=== PATIENT | female | born 1980 | race Caucasian/White ===

== ENCOUNTER 2020-08-03 10:24 | Outpatient (REF) | payer OTHER, SELFPAY ==
--- NOTE | 2020-08-03 | US_ITS ---
EXAMINATION: PELVIC ULTRASOUND CLINICAL INFORMATION: Dysmenorrhea. Heavy painful menses. COMPARISON: None TECHNIQUE: Transabdominal and transvaginal pelvic ultrasound was performed. Transvaginal exam was performed for better visualization of the uterus and ovaries. FINDINGS: The uterus is retroverted and retroflexed and measures 7.5 x 4.6 x 4.8 cm in dimension. No focal uterine lesion is seen. Endometrial thickness is normal estimated at 0.5 cm. There is a nabothian cyst in the cervix. The right ovary measures 3.1 x 2.5 x 1.4 cm. There is a 4.7 x 2.8 x 5 cm simple right adnexal or paraovarian cyst. The left ovary is normal-appearing and measures 2.8 x 1.6 x 1.5 cm. There is no fluid in the pelvis. IMPRESSION: Normal-appearing uterus. 4.7 x 2.8 x 5 cm simple right paraovarian or adnexal cyst.
== END 2020-08-03 10:25 | disposition home or self-care (01) ==
LOC: HO.US 10:24
PROVIDERS: Visit Provider Advanced Practice Midwife
DX: N94.6 Dysmenorrhea, unspecified (principal)
CPT/HCPCS: 76830; 76856

== ENCOUNTER 2020-08-21 12:36 | Outpatient (REF) | payer MEDICARE, SELFPAY | END 2020-08-21 12:37 | disposition home or self-care (01) | LOC: HO.HAP 12:36 | PROVIDERS: Visit Provider Internal Medicine | DX: H90.6 Mixed conductive and sensorineural hearing loss, bilateral (principal); Z46.1 Encounter for fitting and adjustment of hearing aid | CPT/HCPCS: V5011; V5020; V5160; V5261 ==

== ENCOUNTER → 2020-09-02 09:20 | Outpatient (BNVA) | payer OTHER, SELFPAY | PROVIDERS: PCP Internal Medicine; Visit Provider Advanced Practice Midwife | DX: N83.8 Other noninflammatory disorders of ovary, fallopian tube and broad ligament (principal); N94.3 Premenstrual tension syndrome; N94.6 Dysmenorrhea, unspecified; L68.0 Hirsutism | CPT/HCPCS: 99212 ==

== ENCOUNTER 2020-10-14 11:09 | Outpatient (REF) | payer OTHER, SELFPAY ==
[2020-10-14 13:55] LABS: MANUAL DIFF FLAG NO
[2020-10-14 14:00] LABS: Basophils Absolute Auto 0.1 X10*3/uL (0.0-0.2); Basophils Percent Auto 0.7 % (0-2); Eosinophils Absolute Auto 0.1 X10*3/uL (0.0-0.4); Eosinophils Percent Auto 0.5 % (0-4); Hematocrit 43.2 % (37-47); Hemoglobin 14.1 g/dl (12.0-16.0); Imm Gran Abs Auto 0.03 X10*3/uL (0.00-0.03); Imm Gran Pct Auto 0.3 % (0.0-0.4); Lymphocytes Percent Auto 33.2 % (20-40); Mean Corpuscular HGB Conc 32.6 g/dl (31.0-35.0); Mean Corpuscular Hemoglobin 32.3 pg (27.0-33.0); Mean Corpuscular Volume 99.1 fL (80-98); Mean Platelet Volume 11.1 fL (9.4-12.3); Monocytes Absolute Auto 0.5 X10*3/uL (0.1-1.2); Monocytes Percent Auto 5.5 % (2-11); Neutrophils Absolute Auto 5.5 X10*3/uL (2.0-8.3); Neutrophils Percent Auto 59.8 % (45-73); Platelet Count 326 X10*3/uL (160-400); Red Blood Count 4.36 X10*6/uL (4.20-5.50); Red Cell Distribution Width 13.2 % (11.0-16.0); White Blood Count 9.1 X10*3/uL (4.8-10.8)
[2020-10-14 14:32] LABS: Alanine Aminotransferase 23 U/L (0-31); Albumin Level 4.6 g/dL (3.5-5.0); Alkaline Phosphatase 85 U/L (39-117); Anion Gap 11 (12-20); Aspartate Amino Transferase 19 U/L (5-31); Bilirubin Total 0.4 mg/dL (0.0-1.0); Blood Urea Nitrogen 6 mg/dL (9-16); Calcium 8.3 mg/dL (8.4-10.2); Carbon Dioxide 27 mmol/L (22-29); Chloride 104 mmol/L (96-108); Estimated Glomerular Filt Rate > 60; Glucose Fasting 87 mg/dL (60-99); Potassium 4.8 mmol/l (3.3-5.1); Sodium 137 mmol/L (135-145); Total Protein 7.2 g/dL (6.5-8.0)
== END 2020-10-14 11:10 | disposition home or self-care (01) ==
LOC: HO.HMGCLDS 11:09
PROVIDERS: PCP Internal Medicine; Visit Provider Physician Assistant Medical
DX: L40.4 Guttate psoriasis (principal); B35.8 Other dermatophytoses; Z79.899 Other long term (current) drug therapy
CPT/HCPCS: 36415; 80053; 85025; 86481

== ENCOUNTER 2020-11-19 10:48 | Outpatient (REF) | payer OTHER, SELFPAY ==
[2020-11-20 09:40] LABS: BV Int Neg Control Negative (Negative); BV Int Pos Control Positive (Positive)
[2020-11-20 18:13] LABS: C. trachomatis RNA TMA NOT DETECTED (NOT DETECTED); N. gonorrhoeae RNA TMA NOT DETECTED (NOT DETECTED)
== END 2020-11-19 10:49 | disposition home or self-care (01) ==
LOC: HO.LAB 10:48
PROVIDERS: PCP Internal Medicine; Visit Provider Advanced Practice Midwife
DX: N76.0 Acute vaginitis (principal); Z20.2 Contact with and (suspected) exposure to infections with a predominantly sexual mode of transmission; B96.89 Other specified bacterial agents as the cause of diseases classified elsewhere; R45.86 Emotional lability; F17.200 Nicotine dependence, unspecified, uncomplicated; Z88.8 Allergy status to other drugs, medicaments and biological substances
CPT/HCPCS: 36415; 87480; 87491; 87510; 87591; 87660; 99212

== ENCOUNTER 2020-12-01 14:12 | Outpatient (REF) | payer OTHER, SELFPAY ==
[2020-12-02 06:01] LABS: Syphilis Screen Nonreactive (Nonreactive)
[2020-12-02 06:29] LABS: HIV AB/AG Nonreactive (Nonreactive); HIV Num 1 0.06 S/CO (0.00-0.99); ~HepC Num1 0.11 S/CO (0.00-0.79); ~Hepatitis C Antibody Nonreactive (Nonreactive)
[2020-12-02 07:19] LABS: HBc Num1 0.06 S/CO (0.00-0.79); Hepatitis B Core Antibody Nonreactive (Nonreactive)
[2020-12-03 17:32] LABS: C. trachomatis RNA TMA NOT DETECTED (NOT DETECTED); N. gonorrhoeae RNA TMA NOT DETECTED (NOT DETECTED)
== END 2020-12-01 14:13 | disposition home or self-care (01) ==
LOC: HO.HMGCLDS 14:12
PROVIDERS: PCP Internal Medicine; Visit Provider Advanced Practice Midwife
DX: Z20.2 Contact with and (suspected) exposure to infections with a predominantly sexual mode of transmission (principal); B37.2 Candidiasis of skin and nail
CPT/HCPCS: 36415; 86704; 86780; 86803; 87389; 87491; 87591

== ENCOUNTER 2021-05-27 19:53 | Emergency (ER) | payer OTHER, SELFPAY ==
--- NOTE | ~2021-05-27 | CT_ITS ---
EXAMINATION: CT ABDOMEN AND PELVIS WITH CONTRAST CLINICAL INFORMATION: Lower abdominal pain. Nausea. COMPARISON: Pelvic ultrasound dated 08/03/2020. TECHNIQUE: Multidetector volumetric images were obtained from the superior aspect of the liver through the pubic symphysis following administration 85 mL of Omnipaque 350 intravenous contrast. Sagittal and coronal reformatted images were obtained on the technologist's workstation. Oral contrast: No This CT examination was performed using dose optimization techniques as appropriate, variously including the following: *Automated exposure control *Adjustment of mA and/or kV according to patient size (this includes techniques or standardized protocols for targeted exams where dose is matched to indication/reason for exam; i.e. extremities or head) *Use of iterative reconstruction technique DLP: 590 mGy-cm FINDINGS: LUNG BASES: The visualized lung bases are unremarkable. LIVER, GALLBLADDER, AND BILIARY TREE: The liver is normal in size, shape, and attenuation. No focal hepatic lesion or biliary ductal dilatation is present. Nondistended with circumferential wall prominence, which may be due to underdistention. No associated inflammatory change. PANCREAS: Unremarkable. SPLEEN: Unremarkable. ADRENAL GLANDS: Unremarkable. KIDNEYS AND URETERS: The kidneys are normal in size, shape, and attenuation. No hydronephrosis, hydroureter, or calculi seen. No perinephric stranding. BLADDER: Nondistended and unremarkable. GASTROINTESTINAL TRACT: No bowel wall thickening or associated inflammatory change. No small or large bowel obstruction. Unremarkable appendix. PERITONEAL CAVITY: No intra-abdominal free air or free fluid. ABDOMINAL WALL: No significant hernia is appreciated. LYMPH NODES: Normal. VASCULAR: Unremarkable. PELVIC VISCERA: The uterus is retroverted and unremarkable. There is a right adnexal simple appearing cyst measuring up to 3.3 x 2.0 x 2.5 cm. OSSEOUS STRUCTURES: Unremarkable. CT/CT abdomen pelvis w con IMPRESSION: 1. Simple appearing right adnexal cystic structure measuring up to 3.3 cm. In the setting of lower pelvic pain, findings may represent a simple ovarian cyst versus dominant follicle. 2. Otherwise unremarkable examination.
[2021-05-27 19:56] VITALS: BP 144/85; PULSE 94; RESP 16; TEMP 36.5; O2SAT 96; BMI 32.8
[2021-05-27 21:25] VITALS: BP 119/75; PULSE 82; RESP 18; O2SAT 98
--- NOTE | 2021-05-27 21:37 | ED_ITS ---
HPI - Abdominal Pain General Chief Complaint: Abdominal Pain Stated Complaint: abdominal pain Time Seen by Provider: 05/27/21 21:05 Source: patient Mode of arrival: ambulatory History of Present Illness HPI narrative: 41-year-old female without significant past medical history, denies history of kidney stones/abdominal surgery, and presents with 3 days of lower abdominal discomfort that is sharp and has worsened over the past 3 days associated with nausea but no vomiting, fever, chills and states that the left is more comfortable than the right and that the left radiates into the back. Otherwise, patient is status post tubal ligation and her LMP was 05/13. Related Data Home Medications Medication Instructions Recorded Confirmed buprenorphine 2 mg-naloxone 0.5 mg 1 film BUCCAL DAILY 09/02/20 04/27/21 sublingual film (Suboxone) bupropion HCl 300 mg 24 hr tablet, 300 mg PO QAM 09/02/20 04/27/21 extended release etanercept 50 mg/mL (1 mL) 50 mg SUBCUT QWEEK 09/02/20 04/27/21 subcutaneous syringe (Enbrel) lamotrigine 100 mg tablet 100 mg PO DAILY 09/02/20 04/27/21 promethazine 25 mg tablet 25 mg PO Q4-6H PRN 09/02/20 04/27/21 tretinoin 0.025 % topical cream 1 applic TOPICAL BEDTIME 09/02/20 04/27/21 citalopram 40 mg tablet 40 mg PO DAILY 04/27/21 04/27/21 hydroxyzine HCl 10 mg tablet 10 mg PO 04/27/21 04/27/21 Previous Rx's Medication Instructions Recorded metronidazole 500 mg tablet 500 mg PO BID 7 Days #14 tab 11/23/20 (Flagyl) famotidine 40 mg tablet 40 mg PO DAILY 90 Days #90 tab 04/27/21 omeprazole 20 mg capsule,delayed 20 mg PO DAILY 90 Days #90 cap 04/27/21 release Allergies Allergy/AdvReac Type Severity Reaction Status Date / Time ibuprofen [Ibuprofen] Allergy Mild GI UPSET Verified 04/27/21 11:01 acetaminophen [Vicodin] Allergy Unknown gi upset Verified 04/27/21 11:01 hydrocodone [Vicodin] Allergy Unknown gi upset Verified 04/27/21 11:01 Motrin Allergy Unknown GI upset Verified 04/27/21 11:01 Review of Systems Review of Systems Pertinent positives and negatives as stated in HPI 10 point review systems otherwise negative. Physical Exam Vital Signs: Vital Signs: Last Vital Signs Temp 98.7 F 05/27/21 23:21 Pulse 70 05/27/21 23:21 Resp 18 05/27/21 23:21 BP 119/67 05/27/21 23:21 Pulse Ox 98 05/27/21 23:21 Body Mass Index 32.8 VITAL SIGNS: Reviewed. GENERAL: Well developed, well nourished, in no acute distress. HEAD: Normocephalic/atraumatic EYES: PERRLA, EOMI EARS: Ext canals without abnormality OROPHARYNX: no oral lesions noted, posterior pharynx clear LUNGS: Normal breath sounds. No adventitious sounds or accessory muscle use. SpO2<98> CARDIOVASCULAR: Regular rate and rhythm without noted murmurs ABDOMEN: Soft, tenderness along lower abdomen left greater than right without r ebound non-distended with bowel sounds. SKIN: Inspection of the skin reveals no rashes NEUROLOGIC: Alert and oriented x 4. Strength and sensation to light touch were grossly intact x 4. Course Course Course Narrative: 41-year-old female with history and clinical presentation suggestive of UTI, pyelonephritis, renal colic, possible diverticulitis but doubt appendicitis. Review of all investigations without acute findings other than ovarian cyst. Patient given all results and discharged in stable condition. MDM - Abdominal Pain Lab Data Result diagrams: 05/27/21 21:41 05/27/21 21:41 Labs: Lab Results 05/27/21 05/27/21 05/27/21 Range/Units 21:41 21:41 22:08 WBC 10.4 (4.8-10.8) X10*3/uL RBC 4.18 L (4.20-5.50) X10*6/uL Hgb 13.4 (12.0-16.0) g/dl Hct 40.1 (37-47) % MCV 95.9 (80-98) fL MCH 32.1 (27.0-33.0) pg MCHC 33.4 (31.0-35.0) g/dl RDW 12.7 (11.0-16.0) % Plt Count 287 (160-400) X10*3/uL MPV 10.1 (9.4-12.3) fL Immature Gran % (Auto) 0.3 (0.0-0.4) % Neut % (Auto) 43.8 L (45-73) % Lymph % (Auto) 46.8 H (20-40) % [place] % (Auto) 6.9 (2-11) % Eos % (Auto) 1.4 (0-4) % Baso % (Auto) 0.8 (0-2) % Lymph # (Auto) 4.9 (1.2-4.9) X10*3/uL [place] # (Auto) 0.7 (0.1-1.2) X10*3/uL Eos # (Auto) 0.2 (0.0-0.4) X10*3/uL Baso # (Auto) 0.1 (0.0-0.2) X10*3/uL Abs Immat Gran (auto) 0.03 (0.00-0.03) X10*3/uL Absolute Neuts (auto) 4.6 (2.0-8.3) X10*3/uL Absolute Nucleated RBC 0.000 (0.0-0.012) X10*3/uL Nucleated RBC % (auto) 0.0 (0.0-0.2) /100WBC Sodium 139 (135-145) mmol/L Potassium 4.3 (3.3-5.1) mmol/L Chloride 107 (96-108) mmol/L Carbon Dioxide 23 (22-29) mmol/L Anion Gap 13 (12-20) BUN 8 L (9-16) mg/dL Creatinine 0.81 (0.5-1.4) mg/dL Estim Creat Clear Calc 81.7 Estimated GFR > 60 Random Glucose 101 (60-115) mg/dL Calcium 8.7 (8.4-10.2) mg/dL Total Bilirubin 0.3 (0.0-1.0) mg/dL AST 19 (5-31) U/L ALT 16 (0-31) U/L Alkaline Phosphatase 79 (39-117) U/L Total Protein 6.5 (6.5-8.0) g/dL Albumin 3.9 (3.5-5.0) g/dL Urine Color Urine Appearance Urine pH (5.0-8.0) Ur Specific Helix (1.005-1.025) Urine Protein (NEG-TRACE) MG/DL Urine Glucose (UA) (NEG) MG/DL Urine Ketones (NEG) MG/DL Urine Blood (NEG) Urine Nitrite (NEG) Ur Leukocyte Esterase (NEG) Urine Test NEGATIVE (NEGATIVE) 05/27/21 Range/Units 22:09 WBC (4.8-10.8) X10*3/uL RBC (4.20-5.50) X10*6/uL Hgb (12.0-16.0) g/dl Hct (37-47) % MCV (80-98) fL MCH (27.0-33.0) pg MCHC (31.0-35.0) g/dl RDW (11.0-16.0) % Plt Count (160-400) X10*3/uL MPV (9.4-12.3) fL Immature Gran % (Auto) (0.0-0.4) % Neut % (Auto) (45-73) % Lymph % (Auto) (20-40) % [place] % (Auto) (2-11) % Eos % (Auto) (0-4) % Baso % (Auto) (0-2) % Lymph # (Auto) (1.2-4.9) X10*3/uL [place] # (Auto) (0.1-1.2) X10*3/uL Eos # (Auto) (0.0-0.4) X10*3/uL Baso # (Auto) (0.0-0.2) X10*3/uL Abs Immat Gran (auto) (0.00-0.03) X10*3/uL Absolute Neuts (auto) (2.0-8.3) X10*3/uL Absolute Nucleated RBC (0.0-0.012) X10*3/uL Nucleated RBC % (auto) (0.0-0.2) /100WBC Sodium (135-145) mmol/L Potassium (3.3-5.1) mmol/L Chloride (96-108) mmol/L Carbon Dioxide (22-29) mmol/L Anion Gap (12-20) BUN (9-16) mg/dL Creatinine (0.5-1.4) mg/dL Estim Creat Clear Calc Estimated GFR Random Glucose (60-115) mg/dL Calcium (8.4-10.2) mg/dL Total Bilirubin (0.0-1.0) mg/dL AST (5-31) U/L ALT (0-31) U/L Alkaline Phosphatase (39-117) U/L Total Protein (6.5-8.0) g/dL Albumin (3.5-5.0) g/dL Urine Color DARK YELLOW Urine Appearance CLEAR Urine pH 6.0 (5.0-8.0) Ur Specific Helix 1.025 (1.005-1.025) Urine Protein NEG (NEG-TRACE) MG/DL Urine Glucose (UA) NEG (NEG) MG/DL Urine Ketones 5 (NEG) MG/DL Urine Blood NEG (NEG) Urine Nitrite NEG (NEG) Ur Leukocyte Esterase NEG (NEG) Urine Test (NEGATIVE) Discharge Plan Discharge Clinical Impression: Ovarian cyst Patient Disposition: Home, Self-Care Instructions: Ovarian Cyst (ED) Additional Instructions: 1. Recommend heating pad as needed for pain control. 2. Please follow-up with your primary care provider next 2-3 days for re- evaluation and repeat ultrasound in 6 weeks. Return to the ER for acute worsening of symptoms. Prescriptions: No Action metronidazole [Flagyl] 500 mg tablet 500 mg PO BID 7 Days Qty: 14 RF: 0 citalopram 40 mg tablet 40 mg PO DAILY RF: 0 hydroxyzine HCl 10 mg tablet 10 mg PO RF: 0 famotidine 40 mg tablet 40 mg PO DAILY 90 Days Qty: 90 RF: 0 omeprazole 20 mg capsule,delayed release(DR/EC) 20 mg PO DAILY 90 Days Qty: 90 RF: 0 buprenorphine-naloxone [Suboxone] 2-0.5 mg film 1 film buccal DAILY RF: 0 Enbrel 50 mg/mL (1 mL) syringe 50 mg subcut QWEEK RF: 0 lamotrigine 100 mg tablet 100 mg PO DAILY RF: 0 tretinoin 0.025 % cream 1 applic topical BEDTIME RF: 0 bupropion HCl 300 mg tablet extended release 24 hr 300 mg PO QAM RF: 0 promethazine 25 mg tablet 25 mg PO Q4-6H PRNRF: 0 Referrals: Simba Mcmanus, [employer] [Primary Care Provider] - 2 days Stand Alone Forms: Work/School Release PMFSH Past Medical History Source: nursing notes reviewed Medical History History of depression History of exposure to HIV Hx of anxiety disorder Hx of bipolar disorder Hx of hearing loss Hx of psoriasis Surgical History History of tubal ligation Family History Family History Father Depression Mother HTN (hypertension) Diabetes mellitus Sister No problems noted. Sister No problems noted. Son No problems noted. Son No problems noted. Daughter No problems noted. Social History Social History Alcohol intake: current Alcohol intake frequency: holidays/special occasions only Advance Directives: No Advance Directives Information Provided: No Patient : No Sexual orientation: Straight/Heterosexual Gender identity: female
[2021-05-27 21:48] LABS: MANUAL DIFF FLAG NO
[2021-05-27 21:49] LABS: Basophils Absolute Auto 0.1 X10*3/uL (0.0-0.2); Basophils Percent Auto 0.8 % (0-2); Eosinophils Absolute Auto 0.2 X10*3/uL (0.0-0.4); Eosinophils Percent Auto 1.4 % (0-4); Hematocrit 40.1 % (37-47); Hemoglobin 13.4 g/dl (12.0-16.0); Imm Gran Abs Auto 0.03 X10*3/uL (0.00-0.03); Imm Gran Pct Auto 0.3 % (0.0-0.4); Lymphocytes Absolute Auto 4.9 X10*3/uL (1.2-4.9); Lymphocytes Percent Auto 46.8 % (20-40); Mean Corpuscular HGB Conc 33.4 g/dl (31.0-35.0); Mean Corpuscular Hemoglobin 32.1 pg (27.0-33.0); Mean Corpuscular Volume 95.9 fL (80-98); Mean Platelet Volume 10.1 fL (9.4-12.3); Monocytes Absolute Auto 0.7 X10*3/uL (0.1-1.2); Monocytes Percent Auto 6.9 % (2-11); Neutrophils Absolute Auto 4.6 X10*3/uL (2.0-8.3); Neutrophils Percent Auto 43.8 % (45-73); Platelet Count 287 X10*3/uL (160-400); Red Blood Count 4.18 X10*6/uL (4.20-5.50); Red Cell Distribution Width 12.7 % (11.0-16.0); White Blood Count 10.4 X10*3/uL (4.8-10.8)
[2021-05-27 22:15] LABS: Glucose Urine UA NEG (NEG); Leukocyte Esterase Urine NEG (NEG); Nitrite Urine NEG (NEG); Specific Gravity - Urine 1.025 (1.005-1.025); Urine Blood NEG (NEG); Urine Ketones 5 MG/DL (NEG); Urine Protein NEG (NEG-TRACE)
[2021-05-27 22:17] LABS: Appearance Urine CLEAR; Color Urine DARK YELLOW
[2021-05-27 22:17] LABS: Urine Pregnancy NEGATIVE (NEGATIVE)
[2021-05-27 22:18] LABS: UPreg QC Valid YES
[2021-05-27 22:27] LABS: Alanine Aminotransferase 16 U/L (0-31); Albumin Level 3.9 g/dL (3.5-5.0); Alkaline Phosphatase 79 U/L (39-117); Anion Gap 13 (12-20); Aspartate Amino Transferase 19 U/L (5-31); Bilirubin Total 0.3 mg/dL (0.0-1.0); Blood Urea Nitrogen 8 mg/dL (9-16); Calcium 8.7 mg/dL (8.4-10.2); Carbon Dioxide 23 mmol/L (22-29); Chloride 107 mmol/L (96-108); Creatinine Clr Calc Pharmacy 81.7; Estimated Glomerular Filt Rate > 60; Glucose Random 101 mg/dL (60-115); Potassium 4.3 mmol/L (3.3-5.1); Sodium 139 mmol/L (135-145); Total Protein 6.5 g/dL (6.5-8.0)
[2021-05-27] MEDS: iohexoL 350 MG/ML 100 ML INFUS..BTL IV (22:50)
[2021-05-27 23:21] VITALS: BP 119/67; PULSE 70; RESP 18; TEMP 37.1; O2SAT 98
== END 2021-05-28 00:26 | disposition home or self-care (01) ==
PROVIDERS: Emergency Provider Student in an Organized Health Care Education/Training Program; PCP Nurse Practitioner Family
DX: N83.209 Unspecified ovarian cyst, unspecified side (principal); R10.30 Lower abdominal pain, unspecified; Z79.899 Other long term (current) drug therapy
CPT/HCPCS: 36415; 74177; 80053; 81003; 81025; 85025; 99284; Q9967

== ENCOUNTER 2021-06-03 10:02 | Outpatient (REF) | payer OTHER, SELFPAY ==
[2021-06-04 09:53] LABS: CT PCR NOT DETECTED (Not Detect.); NG PCR NOT DETECTED (Not Detect.)
[2021-06-04 10:07] LABS: BV Int Neg Control Negative (Negative); BV Int Pos Control Positive (Positive)
== END 2021-06-03 10:03 | disposition home or self-care (01) ==
LOC: HO.LAB 10:02
PROVIDERS: PCP Nurse Practitioner Family; Visit Provider Advanced Practice Midwife
DX: R10.2 Pelvic and perineal pain (principal); F17.210 Nicotine dependence, cigarettes, uncomplicated; N83.201 Unspecified ovarian cyst, right side; Z20.2 Contact with and (suspected) exposure to infections with a predominantly sexual mode of transmission
CPT/HCPCS: 81003; 87480; 87491; 87510; 87591; 87660; 99212

== ENCOUNTER 2021-06-17 12:54 | Outpatient (REF) | payer OTHER, SELFPAY ==
--- NOTE | ~2021-06-17 | US_ITS ---
EXAMINATION: US PELVIS CLINICAL INFORMATION: Right-sided pain COMPARISON: 08/03/2020 TECHNIQUE: Ultrasound of the pelvis is performed using both transabdominal and transvaginal transducers along with Doppler. Transvaginal imaging is performed due to inadequate visualization transabdominally. FINDINGS: Uterus: The uterus is normal measuring 7.7 x 3.4 x 4.1 cm and is retroverted. Endometrial thickness normal at 9 mm in double layer thickness. No focal lesion. Nabothian cysts. Adnexa: Both ovaries are visualized. There is normal color flow to the adnexa. There is no ovarian torsion. There is no pelvic ascites or fluid collection. Right ovary measures 9 mL in volume and the Left ovary measures 5 mL in volume. Right ovarian cyst is smaller current study measuring 3 x 2.7 x 1.8 cm. US/US pelvic and transvaginal IMPRESSION: No suspicious abnormalities. Small right ovarian cyst noted smaller than on previous which could be recurrence of a dominant hemorrhagic cyst versus a regressing parovarian cyst.
== END 2021-06-17 12:55 | disposition home or self-care (01) ==
LOC: HO.US 12:54
PROVIDERS: PCP Nurse Practitioner Family; Visit Provider Advanced Practice Midwife
DX: N83.201 Unspecified ovarian cyst, right side (principal)
CPT/HCPCS: 76830; 76856

== ENCOUNTER → 2021-07-02 10:36 | Outpatient (BNVA) | payer OTHER, SELFPAY | PROVIDERS: Visit Provider Advanced Practice Midwife | CPT/HCPCS: 99212 ==

== ENCOUNTER 2021-10-07 10:33 | Outpatient (REF) | payer OTHER, SELFPAY ==
[2021-10-07 17:14] LABS: CT PCR NOT DETECTED (Not Detect.); NG PCR NOT DETECTED (Not Detect.)
== END 2021-10-07 10:34 | disposition home or self-care (01) ==
LOC: HO.LAB 10:33
PROVIDERS: Visit Provider Obstetrics & Gynecology
DX: R10.2 Pelvic and perineal pain (principal); F17.210 Nicotine dependence, cigarettes, uncomplicated
CPT/HCPCS: 87491; 87591; 99212

== ENCOUNTER 2021-12-28 10:51 | Outpatient (REF) | payer OTHER, SELFPAY ==
--- NOTE | ~2021-12-28 | US_ITS ---
EXAMINATION: US PELVIS CLINICAL INFORMATION: Pelvic and perineal pain. COMPARISON: None TECHNIQUE: Ultrasound of the pelvis is performed using both transabdominal and transvaginal transducers along with Doppler. Transvaginal imaging is performed due to inadequate visualization transabdominally. FINDINGS: UTERUS: The uterus is retroflexed, retroverted and measures 8.8 x 4.6 x 6.0 cm. The double wall endometrial thickness is 0.9 mm. The uterus is smooth in contour and has normal myometrial echogenicity. No visible fibroid. There are small nabothian cysts. ADNEXA: Both ovaries are visualized. There is normal color flow to the adnexa. There is no ovarian torsion. There is no pelvic ascites or fluid collection. Right ovary measures 2.8 x 2.4 x 2.5 cm and volume 8.6 mL. There is an anechoic cyst with a daughter cyst within. This cyst measures 1.8 x 1.8 x 2.0 cm. No additional cyst seen. Left ovary measures 2.8 x 1.4 x 1.9 cm and volume 3.8 mL. There is a corpus luteal cyst measuring 1.3 x 1.1 x 1.2 cm. There is a left adnexal cyst measuring 1.1 x 0.5 x 0.6 cm. There is no free fluid in the cul-de-sac. US/US pelvic and transvaginal IMPRESSION: Small nabothian cysts seen in the cervix. The uterus is unremarkable. There is a complex cyst right ovary and a corpus luteal cyst left ovary. In addition, there is a left adnexal cyst measuring 1.1 cm.
== END 2021-12-28 10:52 | disposition home or self-care (01) ==
LOC: HO.US 10:51
PROVIDERS: Visit Provider Obstetrics & Gynecology
DX: R10.2 Pelvic and perineal pain (principal)
CPT/HCPCS: 76830; 76856

== ENCOUNTER → 2022-01-03 11:27 | Outpatient (BNVA) | payer OTHER, SELFPAY | PROVIDERS: Visit Provider Obstetrics & Gynecology | DX: N83.299 Other ovarian cyst, unspecified side (principal) | CPT/HCPCS: Q3014 ==

== ENCOUNTER 2022-01-04 12:29 | Outpatient (REF) | payer OTHER, SELFPAY ==
[2022-01-04 12:51] LABS: MANUAL DIFF FLAG NO
[2022-01-04 13:40] LABS: Basophils Absolute Auto 0.1 X10*3/uL (0.0-0.2); Basophils Percent Auto 0.5 % (0-2); Eosinophils Absolute Auto 0.1 X10*3/uL (0.0-0.4); Eosinophils Percent Auto 0.7 % (0-4); Hematocrit 40.2 % (37.0-47.0); Hemoglobin 13.2 g/dl (12.0-16.0); Imm Gran Abs Auto 0.02 X10*3/uL (0.00-0.03); Imm Gran Pct Auto 0.2 % (0.0-0.4); Lymphocytes Absolute Auto 4.1 X10*3/uL (1.2-4.9); Lymphocytes Percent Auto 39.2 % (20-40); Mean Corpuscular HGB Conc 32.8 g/dl (31.0-35.0); Mean Corpuscular Hemoglobin 31.4 pg (27.0-33.0); Mean Corpuscular Volume 95.5 fL (80.0-98.0); Monocytes Absolute Auto 0.7 X10*3/uL (0.1-1.2); Monocytes Percent Auto 6.7 % (2-11); Neutrophils Absolute Auto 5.5 x10*3/uL (2.0-8.3); Neutrophils Percent Auto 52.7 % (45-73); Platelet Count 295 X10*3/uL (160-400); Red Blood Count 4.21 X10*6/uL (4.20-5.50); Red Cell Distribution Width 12.9 % (11.0-16.0); White Blood Count 10.4 X10*3/uL (4.8-10.8)
[2022-01-04 14:15] LABS: Alanine Aminotransferase 19 U/L (0-31); Alkaline Phosphatase 79 U/L (39-117); Anion Gap 12 (12-20); Aspartate Amino Transferase 19 U/L (5-31); Bilirubin Direct < 0.2 mg/dL (0.0-0.5); Bilirubin Total 0.3 mg/dL (0.0-1.0); Blood Urea Nitrogen 10 mg/dL (9-16); Carbon Dioxide 25 mmol/L (22-29); Chloride 105 mmol/L (96-108); Cholesterol 195 mg/dL; Estimated Glomerular Filt Rate > 60; Glucose Random 91 mg/dL (60-115); HDL Cholesterol 52 mg/dL; LDL Cholesterol Calculated 118 mg/dl; Potassium 4.5 mmol/L (3.3-5.1); Sodium 137 mmol/L (135-145); Total Protein 6.8 g/dL (6.5-8.0); Triglycerides 128 mg/dL
[2022-01-05 14:46] LABS: CA-125 10 U/mL (<35)
[2022-01-06 11:47] LABS: TS Negative Control Passed; TS Panel A 0; TS Panel B 0; TS Positive Control Passed; TSpotTB Negative (Negative)
== END 2022-01-04 12:30 | disposition home or self-care (01) ==
LOC: HO.LAB 12:29
PROVIDERS: Absent Provider Physician Assistant Medical; PCP Internal Medicine; Visit Provider Obstetrics & Gynecology
DX: Z11.4 Encounter for screening for human immunodeficiency virus [HIV] (principal); N83.299 Other ovarian cyst, unspecified side; L40.4 Guttate psoriasis; L73.2 Hidradenitis suppurativa; L70.0 Acne vulgaris; L85.3 Xerosis cutis; Z79.899 Other long term (current) drug therapy
CPT/HCPCS: 36415; 80048; 80061; 80076; 85025; 86304; 86481

== ENCOUNTER 2022-01-14 10:24 | Outpatient (REF) | payer OTHER, SELFPAY ==
[2022-01-19 01:27] LABS: HPV mRNA E6/E7 rflx Not Detected (Not Detected)
== END 2022-01-14 10:25 | disposition home or self-care (01) ==
LOC: HO.LAB 10:24
PROVIDERS: PCP Internal Medicine; Visit Provider Obstetrics & Gynecology
DX: Z01.419 Encounter for gynecological examination (general) (routine) without abnormal findings (principal)
CPT/HCPCS: 87624; 88142

== ENCOUNTER 2022-02-07 11:58 | Outpatient (REF) | payer OTHER, SELFPAY ==
--- NOTE | ~2022-02-07 | MM_ITS ---
EXAMINATION: MM SCREENING DIGITAL BREAST TOMOSYNTHESIS, BILATERAL CLINICAL INFORMATION: Screening. Asymptomatic. The lifetime risk of breast cancer based on the Tyrer-Cuzick Model is 7%. COMPARISON: Outside mammography: 08/22/2018 ([facility]) TECHNIQUE: Digital breast tomosynthesis is performed in both the craniocaudal and mediolateral oblique views along with computer-aided detection (CAD). Synthesized 2D images are generated from the tomosynthesis. FINDINGS: The breasts are heterogeneously dense, which may obscure small masses (ACR BI-RADS breast composition Category c). There are no significant masses, abnormal calcifications, or other abnormalities. There are scattered shifting fibroglandular parenchymal densities overall similar prior outside exam. There is no architectural abnormality or significant change. The axilla and skin contours are unremarkable. MM/MM tomosynthesis screening BI IMPRESSION: No significant changes from prior outside exam. ASSESSMENT: BI-RADS 2: Benign RECOMMENDATION: Routine annual mammography screening. This patient's information was entered into a reminder system with a target due date for their next mammogram.
== END 2022-02-07 11:59 | disposition home or self-care (01) ==
LOC: HO.MAMMO 11:58
PROVIDERS: PCP Internal Medicine; Visit Provider Obstetrics & Gynecology
DX: Z12.31 Encounter for screening mammogram for malignant neoplasm of breast (principal)
CPT/HCPCS: 77063; 77067

== ENCOUNTER 2022-02-28 12:50 | Outpatient (REF) | payer OTHER, SELFPAY ==
--- NOTE | ~2022-02-28 | XR_ITS ---
EXAMINATION: XR KNEE, RIGHT CLINICAL INFORMATION: Pain right knee. COMPARISON: None TECHNIQUE: Four views of the right knee. FINDINGS: There is a moderate-sized anterior superior patellar enthesophyte and anterior tibial tubercle enthesophyte. No visible acute fracture, dislocation or subluxation seen. No joint effusion. No evidence of loose bodies. XR/XR knee RT 3V IMPRESSION: Moderate-sized enthesophyte along the anterior superior patellar enthesophyte and anterior tibial tubercle enthesophyte.
--- NOTE | ~2022-02-28 | US_ITS ---
EXAMINATION: US PELVIS CLINICAL INFORMATION: Ovarian cyst. COMPARISON: Ultrasound pelvis 12/28/2021. TECHNIQUE: Ultrasound of the pelvis is performed using both transabdominal and transvaginal transducers along with Doppler. Transvaginal imaging is performed due to inadequate visualization transabdominally. FINDINGS: UTERUS: The uterus is retroverted, retroflexed and measures 9.1 x 3.3 x 4.2 cm. The double wall endometrial thickness is 0.7 cm. The uterus is smooth in contour and has normal myometrial echogenicity. No visible fibroid. There are small anechoic cysts in the cervix. ADNEXA: Both ovaries are visualized. There is normal color flow to the adnexa. There is no ovarian torsion. There is no pelvic ascites or fluid collection. Right ovary measures 2.8 x 1.7 x 2.5 cm and volume 6.2 mL. It appears unremarkable. Left ovary measures 3.4 x 1.6 x 2.2 cm and volume 6.3 mL. There is an anechoic cyst measuring 1.0 x 0.9 x 1.0 cm. US/US pelvic and transvaginal IMPRESSION: Retroverted and retroflexed uterus is unremarkable. Small nabothian cysts in the cervix. Simple cyst left ovary. The complex cyst in right ovary has resolved since 12/29/2021.
== END 2022-02-28 12:51 | disposition home or self-care (01) ==
LOC: HO.US 12:50
PROVIDERS: Visit Provider Obstetrics & Gynecology
DX: N83.299 Other ovarian cyst, unspecified side (principal); M25.561 Pain in right knee
CPT/HCPCS: 73562; 76830; 76856

== ENCOUNTER → 2022-05-10 10:31 | Outpatient (BNVA) | payer OTHER, SELFPAY | PROVIDERS: PCP Nurse Practitioner Family; Visit Provider Physician Assistant | DX: K21.9 Gastro-esophageal reflux disease without esophagitis (principal) | CPT/HCPCS: 99202 ==

== ENCOUNTER 2022-12-26 12:56 | Outpatient (REF) | payer OTHER, SELFPAY ==
[2022-12-26 13:09] LABS: MANUAL DIFF FLAG NO
[2022-12-26 14:22] LABS: Basophils Absolute Auto 0.1 X10*3/uL (0.0-0.2); Basophils Percent Auto 0.6 % (0-2); Eosinophils Absolute Auto 0.1 X10*3/uL (0.0-0.4); Eosinophils Percent Auto 1.3 % (0-4); Hematocrit 40.6 % (37.0-47.0); Hemoglobin 13.3 g/dl (12.0-16.0); Imm Gran Abs Auto 0.03 X10*3/uL (0.00-0.03); Imm Gran Pct Auto 0.3 % (0.0-0.4); Lymphocytes Absolute Auto 4.1 X10*3/uL (1.2-4.9); Lymphocytes Percent Auto 37.7 % (20-40); Mean Corpuscular HGB Conc 32.8 g/dl (31.0-35.0); Mean Corpuscular Hemoglobin 30.6 pg (27.0-33.0); Mean Corpuscular Volume 93.3 fL (80.0-98.0); Mean Platelet Volume 11.2 fL (9.4-12.3); Monocytes Absolute Auto 0.6 X10*3/uL (0.1-1.2); Monocytes Percent Auto 5.4 % (2-11); Neutrophils Absolute Auto 5.9 x10*3/uL (2.0-8.3); Neutrophils Percent Auto 54.7 % (45-73); Platelet Count 256 X10*3/uL (160-400); Red Blood Count 4.35 X10*6/uL (4.20-5.50); White Blood Count 10.8 X10*3/uL (4.8-10.8)
[2022-12-26 15:14] LABS: Alanine Aminotransferase 22 U/L (0-31); Albumin Level 4.2 g/dL (3.5-5.0); Alkaline Phosphatase 87 U/L (39-117); Anion Gap 11 (12-20); Aspartate Amino Transferase 19 U/L (5-31); Bilirubin Total 0.6 mg/dL (0.0-1.0); Blood Urea Nitrogen 9 mg/dL (9-16); Calcium 8.8 mg/dL (8.4-10.2); Carbon Dioxide 25 mmol/L (22-29); Chloride 109 mmol/L (96-108); Cholesterol 177 mg/dL; Estimated Glomerular Filt Rate > 60; Glucose Fasting 92 mg/dL (60-99); HDL Cholesterol 58 mg/dL; LDL Cholesterol Calculated 107 mg/dl; Potassium 4.2 mmol/L (3.3-5.1); Sodium 141 mmol/L (135-145); TSH reflex Free T4 1.07 uIU/mL (0.32-4.0); Total Protein 6.7 g/dL (6.5-8.0); Triglycerides 61 mg/dL; Vitamin D 25-OH Total 23.9 ng/mL (>30)
== END 2022-12-26 12:57 | disposition home or self-care (01) ==
LOC: HO.LAB 12:56
PROVIDERS: PCP Nurse Practitioner Family; Visit Provider Nurse Practitioner Family
DX: Z13.29 Encounter for screening for other suspected endocrine disorder (principal); Z13.220 Encounter for screening for lipoid disorders; K21.9 Gastro-esophageal reflux disease without esophagitis; E55.9 Vitamin D deficiency, unspecified; R19.7 Diarrhea, unspecified; F31.9 Bipolar disorder, unspecified; M25.562 Pain in left knee
CPT/HCPCS: 36415; 80053; 80061; 82306; 84443; 85025

== ENCOUNTER 2023-03-20 12:46 | Inpatient (IN) | payer OTHER, SELFPAY ==
--- NOTE | ~2023-03-20 | US_ITS ---
EXAMINATION: US ABDOMEN LIMITED CLINICAL INFORMATION: Right upper quadrant pain. COMPARISON: CT abdomen/pelvis 05/27/2021. TECHNIQUE: Real-time imaging of the right upper quadrant abdominal viscera. FINDINGS: PANCREAS: Visualized portions of the pancreas are within normal limits. The tail is obscured by overlying bowel gas. LIVER: Normal. The liver is normal in size. The liver contour is normal. Parenchymal echogenicity is normal. No focal hepatic lesion. There is no intrahepatic biliary duct dilatation seen. GALLBLADDER: Cholelithiasis admixed with echogenic bile. Gallbladder wall thickening and small volume of pericholecystic free fluid. Positive Bazan's sign. A few hyperechoic foci in the gallbladder wall with associated comet tail artifacts are suggestive of superimposed adenomyomatosis. COMMON BILE DUCT: Normal in caliber measuring 0.4 cm in diameter. RIGHT KIDNEY: Normal. No hydronephrosis. No renal calculi or focal parenchymal lesions. The kidney measures 11.5 cm in maximum dimension. FREE FLUID: None. US/US abdomen limited IMPRESSION: Findings are most consistent with acute cholecystitis by ultrasound.
[2023-03-20 13:27] VITALS: BP 101/75; PULSE 95; RESP 20; TEMP 36.8; O2SAT 98; BMI 26.9
--- NOTE | 2023-03-20 13:28 | ED.ABDPAIN ---
HPI - Abdominal Pain General Chief Complaint: Abdominal Pain Stated Complaint: abd pain Time Seen by Provider: 03/20/23 17:57 Source: patient Mode of arrival: ambulatory History of Present Illness HPI narrative: 43-year-old female with right upper quadrant discomfort since Monday associated chills with some nausea and vomiting and poor oral intake. Patient denies any intra-abdominal surgeries and denies any urinary symptoms but patient states she recently completed a course of antibiotics for a UTI (Bactrim). Related Data Home Medications Medication Instructions Recorded Confirmed etanercept 50 mg/mL (1 mL) 50 mg subcut QWEEK 09/02/20 12/21/22 subcutaneous syringe (Enbrel) tretinoin 0.025 % topical cream 1 applic topical BEDTIME 09/02/20 12/21/22 buprenorphine 8 mg-naloxone 2 mg 30 mg sublingual DAILY 05/10/22 12/21/22 sublingual film (Suboxone) adapalene 0.3 % topical gel 1 appl topical BEDTIME 03/14/23 clindamycin phosphate 1 % lotion topical 03/14/23 Previous Rx's Medication Instructions Recorded phenazopyridine 200 mg tablet 200 mg PO TID 6 doses #6 tabs 03/14/23 sulfamethoxazole 800 1 tab PO BID 3 days #6 tabs 03/14/23 mg-trimethoprim 160 mg tablet omeprazole 20 mg capsule,delayed 20 mg PO DAILY 90 days #90 caps 03/19/23 release Allergies Allergy/AdvReac Type Severity Reaction Status Date / Time ibuprofen [From Motrin] Allergy Mild Gastrointestinal Verified 03/14/23 13:51 Upset acetaminophen [From Vicodin] Allergy Unknown Gastrointestinal Verified 03/14/23 13:51 Upset hydrocodone [From Vicodin] Allergy Unknown Gastrointestinal Verified 03/14/23 13:51 Upset Review of Systems Review of Systems Pertinent positives and negatives as stated in HPI PMFSH Past Medical History Source: nursing notes reviewed Medical History Diarrhea History of depression History of exposure to HIV Hx of anxiety disorder Hx of bipolar disorder Hx of hearing loss Hx of psoriasis Periorbital cellulitis of left eye Surgical History History of tubal ligation Family History Family History Father Depression Mother HTN (hypertension) Diabetes mellitus Sister No problems noted. Sister No problems noted. Son No problems noted. Son No problems noted. Daughter No problems noted. 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 GENERAL: Well developed, well nourished, in no acute distress. HEAD: Normocephalic/atraumatic EYES: PERRLA, EOMI EARS: Ext canals without abnormality NOSE: Nares patent bilateral OROPHARYNX: no oral lesions noted, posterior pharynx clear NECK: Supple, no adenopathy LUNGS: Normal breath sounds. No adventitious sounds or accessory muscle use. SpO2<98> CARDIOVASCULAR: Regular rate and rhythm without noted murmurs ABDOMEN: Soft, right upper quadrant tenderness to palpation, Bazan's positive, non-distended with bowel sounds. MUSCULOSKELETAL: No tenderness, deformities, or effusions noted on gross inspection. EXTREMITIES: No cyanosis, clubbing or edema. SKIN: Inspection of the skin reveals no rashes NEUROLOGIC: Alert and oriented x 4. Strength and sensation to light touch were grossly intact x 4. Course Course Course Narrative: This is rapid medical exam. Deferred additional HPI, ROS, PE to primary provider. 43 yo female with history of bipolar, anxiety, depression here with 4 days of upper abdominal pain and vomiting. Will check labs, UA. VSS Medical Decision Making Medical Decision Making [facility] Narrative: 185: After doing bedside ultrasound I suspect acute cholecystitis, reviewed investigations and patient has a noted leukocytosis she will receive 1 L of IV fluids due to recent nausea and vomiting, give Zofran, she has been placed NPO, will obtain lactic acid/blood cultures as well as administer antibiotics. I have already consulted with Dr. Mohr who will review the case. Patient is admitted under Dr. Mohr. 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 Please see the discussion above Lab Data Please see the discussion above 03/20/23 13:45 03/20/23 13:45 Labs: Lab Results 03/20/23 03/20/23 03/20/23 Range/Units 13:45 13:45 13:45 WBC 12.7 H (4.8-10.8) X10*3/uL RBC 4.52 (4.20-5.50) X10*6/uL Hgb 13.9 (12.0-16.0) g/dl Hct 41.9 (37.0-47.0) % MCV 92.7 (80.0-98.0) fL MCH 30.8 (27.0-33.0) pg MCHC 33.2 (31.0-35.0) g/dl RDW 12.3 (11.0-16.0) % Plt Count 316 (160-400) X10*3/uL MPV 10.5 (9.4-12.3) fL Immature Gran % (Auto) 0.2 (0.0-0.4) % Neut % (Auto) 54.4 (45-73) % Lymph % (Auto) 36.3 (20-40) % Hernando % (Auto) 6.0 (2-11) % Eos % (Auto) 2.3 (0-4) % Baso % (Auto) 0.8 (0-2) % Lymph # (Auto) 4.6 (1.2-4.9) X10*3/uL Hernando # (Auto) 0.8 (0.1-1.2) X10*3/uL Eos # (Auto) 0.3 (0.0-0.4) X10*3/uL Baso # (Auto) 0.1 (0.0-0.2) X10*3/uL Abs Immat Gran (auto) 0.03 (0.00-0.03) X10*3/uL Absolute Neuts (auto) 6.9 (2.0-8.3) x10*3/uL Absolute Nucleated RBC 0.000 (0.0-0.012) X10*3/uL Nucleated RBC % (auto) 0.0 (0.0-0.2) /100WBC Sodium 136 (135-145) mmol/L Potassium 3.8 (3.3-5.1) mmol/L Chloride 103 (96-108) mmol/L Carbon Dioxide 26 (22-29) mmol/L Anion Gap 11 L (12-20) BUN 11 (9-16) mg/dL Creatinine 0.72 (0.5-1.4) mg/dL Estim Creat Clear Calc 81.5 Estimated GFR > 60 Random Glucose 116 H (60-115) mg/dL Calcium 8.8 (8.4-10.2) mg/dL Total Bilirubin 0.6 (0.0-1.0) mg/dL Direct Bilirubin 0.2 (0.0-0.5) mg/dL AST 18 (5-31) U/L ALT 21 (0-31) U/L Alkaline Phosphatase 86 (39-117) U/L Total Protein 6.6 (6.5-8.0) g/dL Albumin 3.9 (3.5-5.0) g/dL Lipase 21 (8-78) U/L Urine Color Dark Yellow Urine Appearance Clear Urine pH 6.5 (5.0-9.0) Ur Specific Gibson 1.025 (1.005-1.025) Urine Protein Trace (Neg-Trace) mg/dL Urine Glucose (UA) Negative (Negative) mg/dL Urine Ketones Trace (Negative) mg/dL Urine Blood Trace H (Negative) Urine Nitrite Negative (Negative) Ur Leukocyte Esterase Trace H (Negative) Urine RBC 11-20 H (0-2) /HPF Urine WBC 0-5 (0-5) /HPF Ur Squamous Epith Cells 6-10 (0-2) /HPF Urine Bacteria None Seen (None Seen) Hyaline Casts 0-2 (0-2) /LPF Urine Test (NEGATIVE) 03/20/23 Range/Units 13:45 WBC (4.8-10.8) X10*3/uL RBC (4.20-5.50) X10*6/uL Hgb (12.0-16.0) g/dl Hct (37.0-47.0) % MCV (80.0-98.0) fL MCH (27.0-33.0) pg MCHC (31.0-35.0) g/dl RDW (11.0-16.0) % Plt Count (160-400) X10*3/uL MPV (9.4-12.3) fL Immature Gran % (Auto) (0.0-0.4) % Neut % (Auto) (45-73) % Lymph % (Auto) (20-40) % Hernando % (Auto) (2-11) % Eos % (Auto) (0-4) % Baso % (Auto) (0-2) % Lymph # (Auto) (1.2-4.9) X10*3/uL Hernando # (Auto) (0.1-1.2) X10*3/uL Eos # (Auto) (0.0-0.4) X10*3/uL Baso # (Auto) (0.0-0.2) X10*3/uL Abs Immat Gran (auto) (0.00-0.03) X10*3/uL Absolute Neuts (auto) (2.0-8.3) x10*3/uL Absolute Nucleated RBC (0.0-0.012) X10*3/uL Nucleated RBC % (auto) (0.0-0.2) /100WBC Sodium (135-145) mmol/L Potassium (3.3-5.1) mmol/L Chloride (96-108) mmol/L Carbon Dioxide (22-29) mmol/L Anion Gap (12-20) BUN (9-16) mg/dL Creatinine (0.5-1.4) mg/dL Estim Creat Clear Calc Estimated GFR Random Glucose (60-115) mg/dL Calcium (8.4-10.2) mg/dL Total Bilirubin (0.0-1.0) mg/dL Direct Bilirubin (0.0-0.5) mg/dL AST (5-31) U/L ALT (0-31) U/L Alkaline Phosphatase (39-117) U/L Total Protein (6.5-8.0) g/dL Albumin (3.5-5.0) g/dL Lipase (8-78) U/L Urine Color Urine Appearance Urine pH (5.0-9.0) Ur Specific Gibson (1.005-1.025) Urine Protein (Neg-Trace) mg/dL Urine Glucose (UA) (Negative) mg/dL Urine Ketones (Negative) mg/dL Urine Blood (Negative) Urine Nitrite (Negative) Ur Leukocyte Esterase (Negative) Urine RBC (0-2) /HPF Urine WBC (0-5) /HPF Ur Squamous Epith Cells (0-2) /HPF Urine Bacteria (None Seen) Hyaline Casts (0-2) /LPF Urine Test NEGATIVE (NEGATIVE) Radiology Impression Radiologist Impression: My interpretation is in agreement with radiology's impression of the imaging studies. Medications Administered Generic Name Dose Route Start Last Admin Trade Name Freq PRN Reason Stop Dose Admin Sodium Chloride 1,000 mls @ 999 mls/hr 03/20/23 19:00 03/20/23 19:24 Ns IV 03/20/23 20:00 999 mls/hr .Q1H1M DMITRY Administration Discontinued Medications Generic Name Dose Route Start Last Admin Trade Name Freq PRN Reason Stop Dose Admin Piperacillin Sod/Tazobactam 50 mls @ 100 mls/hr 03/20/23 18:51 03/20/23 19:24 Sod 3.375 gm/ Sodium Chloride IV 03/20/23 19:20 100 mls/hr ONCE ONE Administration Ketorolac Tromethamine 15 mg 03/20/23 18:51 03/20/23 19:24 Ketorolac Tromethamine 30 Mg/Ml Vial IVPUSH 03/20/23 18:52 15 mg ONCE ONE Administration Ondansetron HCl 4 mg 03/20/23 18:55 03/20/23 19:24 Ondansetron Hcl 4 Mg/2 Ml Vial IVPUSH 03/20/23 18:56 4 mg ONCE ONE Administration Discharge Plan Discharge Clinical Impression: Acute cholecystitis Patient Disposition: Admitted As Inpatient Prescriptions: No Action omeprazole 20 mg capsule,delayed release(DR/EC) 20 mg PO DAILY 90 Days Qty: 90 0RF adapalene 0.3 % gel 1 appl topical BEDTIME clindamycin phosphate 1 % lotion topical sulfamethoxazole-trimethoprim 800-160 mg tablet 1 tab PO BID 3 Days Qty: 6 0RF phenazopyridine 200 mg tablet 200 mg PO TID Qty: 6 0RF Enbrel 50 mg/mL (1 mL) syringe 50 mg subcut QWEEK tretinoin 0.025 % cream 1 applic topical BEDTIME buprenorphine-naloxone [Suboxone] 8-2 mg film 30 mg sublingual DAILY
[2023-03-20 13:52] LABS: MANUAL DIFF FLAG NO
[2023-03-20 13:53] LABS: Basophils Absolute Auto 0.1 X10*3/uL (0.0-0.2); Basophils Percent Auto 0.8 % (0-2); Eosinophils Absolute Auto 0.3 X10*3/uL (0.0-0.4); Eosinophils Percent Auto 2.3 % (0-4); Hematocrit 41.9 % (37.0-47.0); Hemoglobin 13.9 g/dl (12.0-16.0); Imm Gran Abs Auto 0.03 X10*3/uL (0.00-0.03); Imm Gran Pct Auto 0.2 % (0.0-0.4); Lymphocytes Absolute Auto 4.6 X10*3/uL (1.2-4.9); Lymphocytes Percent Auto 36.3 % (20-40); Mean Corpuscular HGB Conc 33.2 g/dl (31.0-35.0); Mean Corpuscular Hemoglobin 30.8 pg (27.0-33.0); Mean Corpuscular Volume 92.7 fL (80.0-98.0); Mean Platelet Volume 10.5 fL (9.4-12.3); Monocytes Absolute Auto 0.8 X10*3/uL (0.1-1.2); Neutrophils Absolute Auto 6.9 x10*3/uL (2.0-8.3); Neutrophils Percent Auto 54.4 % (45-73); Platelet Count 316 X10*3/uL (160-400); Red Blood Count 4.52 X10*6/uL (4.20-5.50); Red Cell Distribution Width 12.3 % (11.0-16.0); White Blood Count 12.7 X10*3/uL (4.8-10.8)
[2023-03-20 13:54] LABS: Appearance Urine Clear; Color Urine Dark Yellow; Glucose Urine UA Negative (Negative); Leukocyte Esterase Urine Trace (Negative); Nitrite Urine Negative (Negative); PH 6.5 (5.0-9.0); Specific Gravity - Urine 1.025 (1.005-1.025); UMIC TRIGGER UACC YES; Urine Blood Trace (Negative); Urine Ketones Trace mg/dL (Negative); Urine Protein Trace mg/dL (Neg-Trace)
[2023-03-20 13:55] LABS: UPreg QC Valid YES; Urine Pregnancy NEGATIVE (NEGATIVE)
[2023-03-20 13:56] LABS: Bacteria Urine None Seen (None Seen); Hyaline Casts Urine 0-2 /LPF (0-2); WBC Urine 0-5 /HPF (0-5)
[2023-03-20 14:08] LABS: Alanine Aminotransferase 21 U/L (0-31); Albumin Level 3.9 g/dL (3.5-5.0); Alkaline Phosphatase 86 U/L (39-117); Anion Gap 11 (12-20); Aspartate Amino Transferase 18 U/L (5-31); Bilirubin Direct 0.2 mg/dL (0.0-0.5); Bilirubin Total 0.6 mg/dL (0.0-1.0); Blood Urea Nitrogen 11 mg/dL (9-16); Calcium 8.8 mg/dL (8.4-10.2); Carbon Dioxide 26 mmol/L (22-29); Chloride 103 mmol/L (96-108); Creatinine Clr Calc Pharmacy 81.5; Estimated Glomerular Filt Rate > 60; Glucose Random 116 mg/dL (60-115); Lipase 21 U/L (8-78); Potassium 3.8 mmol/L (3.3-5.1); Sodium 136 mmol/L (135-145); Total Protein 6.6 g/dL (6.5-8.0)
[2023-03-20] MEDS: 0.9 % Sodium Chloride 1,000 ML 999 ML IV (19:24)
[2023-03-20] MEDS: Piperacillin Sodium/Tazobactam 3.375 GM in 0.9 % Sodium Chloride 50 ML IV (19:24)
[2023-03-20] MEDS: ondansetron HCL 4 MG/2 ML VIAL IVPUSH (19:24)
[2023-03-20] MEDS: Ketorolac Tromethamine 30 MG/ML VIAL 15 MG IVPUSH (19:24)
--- NOTE | 2023-03-20 19:33 | P.HPGS_ITS ---
History of Present Illness History of Present Illness Date of Service: 03/21/23 Chief complaint: Acute cholecystitis Narrative: Floridalma Larry is a 43 year old female presenting with complaints of abdominal pain in the epigastrium and right upper quadrant starting 4 days ago. The pain was associated with nausea, vomiting . She denies a previous history of similar pain. She presented to the emergency department after the pain did not improve over the past 4 days. She has been 2nd eating mainly clear liquids for the past 24 hours. She presented to the emergency department was noted to be tender in the right upper quadrant and epigastrium. Ultrasound of the abdomen revealed ga llstones within the gallbladder along with sludge, thickened gallbladder wall and pericholecystic fluid. Common bile duct is normal. Findings were suggestive of acute cholecystitis due to cholelithiasis. Review of Systems Review of Systems: Yes all other systems are reviewed and are negative Constitutional: Constitutional: Denies chills, Denies fever(s), Denies headache(s), Denies poor appetite and Denies weakness ENT: Denies headache(s) Cardiovascular: Cardiovascular: Denies chest pain, Denies irregular heart rhythm, Denies palpitations and Denies dyspnea Respiratory: Respiratory: Denies cough, Denies excessive phlegm production and Denies dyspnea Gastrointestinal: Gastrointestinal: Reports abdominal pain, Denies bloating, Denies change in bowel habits, Denies constipation, Denies heartburn, Denies diarrhea, Reports nausea and Reports vomiting Genitourinary: Genitourinary: Denies urinary frequency Musculoskeletal: Musculoskeletal: Denies back pain, Denies muscle weakness and Denies numbness Integumentary/Breasts: Skin/Breast: Denies changing lesions and Denies unusual bruising Neurologic: Denies headache(s), Denies numbness, Denies paresthesias and Denies weakness Psychiatric: Psychiatric: Denies anxiety and Denies depression Endocrine: Endocrine: Denies palpitations Hematologic/Lymphatic: Hematologic/Lymphatic: Denies lymphadenopathy PMFSH Past Medical History Medical History Diarrhea History of depression History of exposure to HIV Hx of anxiety disorder Hx of bipolar disorder Hx of hearing loss Hx of psoriasis Periorbital cellulitis of left eye Family History Family History Father Depression Mother HTN (hypertension) Diabetes mellitus Sister No problems noted. Sister No problems noted. Son No problems noted. Son No problems noted. Daughter No problems noted. Other Mental health disorder Surgical History Surgical History History of tubal ligation Social History Social History Household Members: Children Housing: Apartment Do you presently have visiting nurse or other home services: No Alcohol intake: current Alcohol intake frequency: does not drink Patient Tobacco Use Status: Current everyday Tobacco user Tobacco use type: Cigarette Cigarette Packs Per Day: 1 Cigarettes Per Day: 4 Years Smoked: 32 Smoked in Last 30 Days: Yes e-Cigarette/Vaping Use: Currently Using Patient Interested in Nicotine Replacement: No Second Hand Smoke Exposure: Yes Use of substances other than those prescribed or required for medical reasons: No Currently Displaying Signs/Symptoms of Drug Intoxication Withdrawal: No Have you been hit, kicked, punched, or otherwise hurt by someone within the past year? If so, by whom?: No Do you feel safe in your current relationship?: No Current Relationship Is there a partner from a previous relationship who is making you feel unsafe now?: No Are you made to feel afraid or neglected: No Advance Directives: No Advance Directives Information Provided: Yes Do you have thoughts of harming others: None Do you have a plan to hurt others: No Plan Recently lost weight without trying: Yes How much weight loss: 24-33 pounds Eating poorly because of decreased appetite: Yes Nutrition screen score: 6 Patient : No : No Poor oral hygiene: No service: No Current occupational status: employed 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 Sexual orientation: Straight/Heterosexual Gender identity: Female Cognitive needs: No Hearing needs: Yes (hearing aide) Vision needs: Yes (glasses) Meds Allergies Allergy/AdvReac Type Severity Reaction Status Date / Time ibuprofen [From Motrin] Allergy Mild Gastrointestinal Verified 03/14/23 13:51 Upset acetaminophen [From Vicodin] Allergy Unknown Gastrointestinal Verified 03/14/23 13:51 Upset hydrocodone [From Vicodin] Allergy Unknown Gastrointestinal Verified 03/14/23 13:51 Upset Active Medications: Current Medications Hydromorphone HCl (Hydromorphone Hcl 0.5 Mg/0.5 Ml Syringe) 0.5 mg IVPUSH Q3H PRN; Protocol PRN Reason: Pain, Severe (Pain Scale 7-10) Sodium Chloride (Ns) 1,000 mls @ 999 mls/hr IV .Q1H1M DMITRY Stop: 03/20/23 20:00 Last Admin: 03/20/23 19:24 Dose: 999 mls/hr Acetaminophen (Ofirmev) 1,000 mg in 100 mls @ 400 mls/hr IV Q6H DMITRY Dextrose/Lactated Ringer's (D5lr) 1,000 mls @ 125 mls/hr IVCONT .Q8H DMITRY Piperacillin Sod/Tazobactam (Sod 3.375 gm/ Sodium Chloride) 50 mls @ 100 mls/hr IV Q6H DMITRY Ondansetron HCl (Ondansetron Hcl 4 Mg/2 Ml Vial) 4 mg IVPUSH QID PRN PRN Reason: Nausea Pharmacy Consult (Consult Rx Perform Med Rec) 1 each MISCELLANE ONCE PRN PRN Reason: Consult order Sodium Chloride (0.9 % Sodium Chloride Flush 3 Ml Syringe) 3 ml IVFLUSH QSHIFT DMITRY Zolpidem Tartrate (Zolpidem Tartrate 5 Mg Tablet) 5 mg PO BEDTIME PRN PRN Reason: Insomnia Home Medications Medication Instructions Recorded Confirmed Last Taken Type buprenorphine 8 mg-naloxone 2 mg 1 film sublingual TID 05/10/22 03/20/23 03/20/23 History sublingual film (Suboxone) adapalene 0.3 % topical gel 1 appl topical BEDTIME 03/14/23 03/20/23 Unknown History clindamycin phosphate 1 % lotion 1 appl topical BID 03/14/23 03/20/23 Unknown History adalimumab 40 mg/0.4 mL 40 mg subcut VIEIRA@0900 03/20/23 03/20/23 Unknown History subcutaneous pen kit (Humira(CF) Pen) betamethasone dipropionate 0.05 % 1 appl topical BID PRN Rash 03/20/23 03/20/23 Unknown History topical ointment cholecalciferol (vitamin D3) 25 25 mcg PO DAILY 03/20/23 03/20/23 Unknown History mcg (1,000 unit) tablet omeprazole 20 mg capsule,delayed 20 mg PO DAILY@0630 PRN Acid Reflux 03/20/23 03/20/23 Unknown History release Physical Exam Vital Signs: Vital Signs: Last Vital Signs Temp 98.2 F 03/20/23 13:27 Pulse 95 03/20/23 13:27 Resp 20 03/20/23 13:27 BP 101/75 03/20/23 13:27 Pulse Ox 98 03/20/23 13:27 O2 Del Method Room Air 03/20/23 13:27 BMI result Body Mass Index 26.9 Const: General: cooperative and no acute distress Nutritional Appearance: well nourished Orientation/consciousness: patient oriented x3 Limitations: no limitations HEENT: Head: Yes normocephalic and Yes atraumatic Ears: hearing grossly normal bilaterally Resp: Effort & Inspection: normal respiratory effort, no audible wheezes, no cough and no respiratory distress Cardio: Jugular venous distension: no JVD GI: Inspection: Yes normal to inspection Palpation (GI): Soft to palpation, Tenderness to palpation present (GI) in the RUQ and Bazan's sign positive, no guarding, not rigid and No hepatosplenomegaly present Percussion: Yes normal to percussion Skin: Other: Warm, dry, no rash Neuro: General: patient oriented x3 Extrem: General: Yes no clubbing, cyanosis or edema Results Results Labs: Short CBC 03/20/23 Range/Units 13:45 WBC 12.7 H (4.8-10.8) X10*3/uL Hgb 13.9 (12.0-16.0) g/dl Hct 41.9 (37.0-47.0) % Plt Count 316 (160-400) X10*3/uL BMP 03/20/23 13:45 Sodium 136 Potassium 3.8 Chloride 103 Carbon Dioxide 26 BUN 11 Creatinine 0.72 Calcium 8.8 Liver Function 03/20/23 Range/Units 13:45 Total Bilirubin 0.6 (0.0-1.0) mg/dL Direct Bilirubin 0.2 (0.0-0.5) mg/dL AST 18 (5-31) U/L ALT 21 (0-31) U/L Alkaline Phosphatase 86 (39-117) U/L Albumin 3.9 (3.5-5.0) g/dL Urine 03/20/23 03/20/23 Range/Units 13:45 13:45 Urine Color Dark Yellow Urine Appearance Clear Urine pH 6.5 (5.0-9.0) Ur Specific Dalton 1.025 (1.005-1.025) Urine Protein Trace (Neg-Trace) mg/dL Urine Glucose (UA) Negative (Negative) mg/dL Urine Test NEGATIVE (NEGATIVE) Assessment and Plan (1) Acute cholecystitis: Status: Acute Plan 43 year old female patient presenting with complaints of RUQ abdominal pain found to be tender in the RUQ with positive Bazan sign. Ultrasound confirms gallstones and biliary sludge with wall thickening, pericholecystic fluid suggestive of acute cholecystitis. We discussed management without surgery including dietary restrictions verses laparoscopic or possible open cholecystectomy. After discussion of the procedure, risks, and alternatives, she consents to a laparoscopic or possible open cholecystectomy. She has been added onto the operative schedule for this morning. Time Spent With Patient Time: Total time managing care of this patient today ____ minutes. Quality Stroke Does the patient have a stroke diagnosis?: No VTE Prior VTE?: No VTE Risk Level:: Surgical - moderate VTE Device Contraindication: N/A - Device Ordered VTE Drug Contraindication: Treatment Not Indicated Procedures Date of Service Date of Service: 03/21/23
[2023-03-20 19:45] LABS: Lactic Acid 0.9 mmol/L (0.5-2.0)
[2023-03-20 20:00] VITALS: BP 114/58; PULSE 88; RESP 16; TEMP 36.7; O2SAT 98
[2023-03-20 20:51] VITALS: BP 120/64; PULSE 75; RESP 18; TEMP 36.3; O2SAT 97
[2023-03-20] MEDS: Acetaminophen 1,000 MG/100 ML PIGGYBACK 400 MG IV (20:51)
[2023-03-20] MEDS: Dextrose 5 % and Lactated Ring 1,000 ML 125 ML IVCONT (20:56)
--- NOTE | 2023-03-20 20:56 | PHA.MEDREC ---
Pharmacy Consult ? Medication Reconciliation Pharmacy has completed the medication reconciliation.
[2023-03-20] MEDS: Zolpidem Tartrate 5 MG TABLET PO (21:45)
[2023-03-21] VITALS (16 sets, daily range): BP systolic 90–174; BP diastolic 54–81; PULSE 63–91; RESP 16–20; TEMP 36–37.2; O2SAT 94–98; BMI 27.1
[2023-03-21] MEDS: Piperacillin Sodium/Tazobactam 3.375 GM in 0.9 % Sodium Chloride 50 ML IV ×4 (01:17→19:05)
[2023-03-21] MEDS: Acetaminophen 1,000 MG/100 ML PIGGYBACK 400 MG IV ×4 (02:04→19:37)
[2023-03-21] MEDS: Dextrose 5 % and Lactated Ring 1,000 ML 125 ML IVCONT ×2 (05:36→15:32)
--- NOTE | 2023-03-21 08:24 | HO.ANESPROP2 ---
[facility] Active Problems Active Problems: All Active Problems (Updated 03/20/23 @ 19:34 by Alida Andrews MD) Acute cholecystitis (Acute) Low vitamin D level (Acute) Diarrhea (Acute) Screening for hyperlipidemia (Acute) Bipolar 1 disorder (Acute) Left knee pain (Acute) Hx of anxiety disorder (Acute) History of depression (Acute) Adult general medical exam (Acute) Right knee pain (Acute) Carpal tunnel syndrome (Acute) Urinary incontinence (Acute) Screening for hypothyroidism (Acute) GERD (gastroesophageal reflux disease) (Acute) Well woman exam (Acute) Complex ovarian cyst (Acute) Hx of hearing loss (Acute) Pelvic pain in female (Acute) Right ovarian cyst (Acute) Smoking (Acute) control counseling (Acute) Mood swings (Acute) Potential exposure to STD (Acute) Dysmenorrhea (Acute) Past Medical History Medical History Diarrhea History of depression History of exposure to HIV Hx of anxiety disorder Hx of bipolar disorder Hx of hearing loss Hx of psoriasis Periorbital cellulitis of left eye Family History Family History Father Depression Mother HTN (hypertension) Diabetes mellitus Sister No problems noted. Sister No problems noted. Son No problems noted. Son No problems noted. Daughter No problems noted. Other Mental health disorder Surgical History Surgical History History of tubal ligation History of Problems with Anesthesia: No Social History Social History Household Members: Children Housing: Apartment Do you presently have visiting nurse or other home services: No Alcohol intake: current Alcohol intake frequency: does not drink Patient Tobacco Use Status: Current everyday Tobacco user Tobacco use type: Cigarette Cigarette Packs Per Day: 1 Cigarettes Per Day: 4 Years Smoked: 32 Smoked in Last 30 Days: Yes e-Cigarette/Vaping Use: Currently Using Patient Interested in Nicotine Replacement: No Second Hand Smoke Exposure: Yes Use of substances other than those prescribed or required for medical reasons: No Currently Displaying Signs/Symptoms of Drug Intoxication Withdrawal: No Have you been hit, kicked, punched, or otherwise hurt by someone within the past year? If so, by whom?: No Do you feel safe in your current relationship?: No Current Relationship Is there a partner from a previous relationship who is making you feel unsafe now?: No Are you made to feel afraid or neglected: No Advance Directives: No Advance Directives Information Provided: Yes Do you have thoughts of harming others: None Do you have a plan to hurt others: No Plan Recently lost weight without trying: Yes How much weight loss: 24-33 pounds Eating poorly because of decreased appetite: Yes Nutrition screen score: 6 Patient : No : No Poor oral hygiene: No service: No Current occupational status: employed Current occupation: [employer] Sexual orientation: Straight/Heterosexual Gender identity: Female Cognitive needs: No Hearing needs: Yes (hearing aide) Vision needs: Yes (glasses) Meds Allergies Allergy/AdvReac Type Severity Reaction Status Date / Time ibuprofen [From Motrin] Allergy Mild Gastrointestinal Verified 03/14/23 13:51 Upset acetaminophen [From Vicodin] Allergy Unknown Gastrointestinal Verified 03/14/23 13:51 Upset hydrocodone [From Vicodin] Allergy Unknown Gastrointestinal Verified 03/14/23 13:51 Upset Active Medications: Current Medications Hydromorphone HCl (Hydromorphone Hcl 0.5 Mg/0.5 Ml Syringe) 0.5 mg IVPUSH Q3H PRN; Protocol PRN Reason: Pain, Severe (Pain Scale 7-10) Acetaminophen (Ofirmev) 1,000 mg in 100 mls @ 400 mls/hr IV Q6H [facility] Last Infusion: 03/21/23 08:19 Dose: Infused Dextrose/Lactated Ringer's (D5lr) 1,000 mls @ 125 mls/hr IVCONT .Q8H [facility] Last Admin: 03/21/23 05:36 Dose: 125 mls/hr Piperacillin Sod/Tazobactam (Sod 3.375 gm/ Sodium Chloride) 50 mls @ 100 mls/hr IV Q6H [facility] Last Infusion: 03/21/23 07:40 Dose: Infused Ondansetron HCl (Ondansetron Hcl 4 Mg/2 Ml Vial) 4 mg IVPUSH QID PRN PRN Reason: Nausea Pharmacy Consult (Consult Rx Perform Med Rec) 1 each MISCELLANE ONCE PRN PRN Reason: Consult order Sodium Chloride (0.9 % Sodium Chloride Flush 3 Ml Syringe) 3 ml IVFLUSH QSHIFT [facility] Last Admin: 03/21/23 07:51 Dose: Not Given Zolpidem Tartrate (Zolpidem Tartrate 5 Mg Tablet) 5 mg PO BEDTIME PRN PRN Reason: Insomnia Last Admin: 03/20/23 21:45 Dose: 5 mg Home Medications Medication Instructions Recorded Confirmed Last Taken Type buprenorphine 8 mg-naloxone 2 mg 1 film sublingual TID 05/10/22 03/20/23 03/20/23 History sublingual film (Suboxone) adapalene 0.3 % topical gel 1 appl topical BEDTIME 03/14/23 03/20/23 Unknown History clindamycin phosphate 1 % lotion 1 appl topical BID 03/14/23 03/20/23 Unknown History adalimumab 40 mg/0.4 mL 40 mg subcut VIEIRA@0900 03/20/23 03/20/23 Unknown History subcutaneous pen kit (Humira(CF) Pen) betamethasone dipropionate 0.05 % 1 appl topical BID PRN Rash 03/20/23 03/20/23 Unknown History topical ointment cholecalciferol (vitamin D3) 25 25 mcg PO DAILY 03/20/23 03/20/23 Unknown History mcg (1,000 unit) tablet omeprazole 20 mg capsule,delayed 20 mg PO DAILY@0630 PRN Acid Reflux 03/20/23 03/20/23 Unknown History release Exam Exam Date and Time: March 21, 2023 0824 Height,Weight and Vital Signs: Height 5 ft Weight 63 kg Last Vital Signs Temp 96.8 F 03/21/23 07:47 Pulse 72 03/21/23 07:47 Resp 16 03/21/23 07:47 BP 94/55 L 03/21/23 07:47 Pulse Ox 98 03/21/23 07:47 O2 Del Method Room Air 03/21/23 07:47 Pertinent Lab Results Pertinent Lab Results: Laboratory Tests 03/20/23 03/20/23 03/20/23 13:45 13:45 13:45 WBC 12.7 H RBC 4.52 Hgb 13.9 Hct 41.9 MCV 92.7 MCH 30.8 MCHC 33.2 RDW 12.3 Plt Count 316 MPV 10.5 Immature Gran % (Auto) 0.2 Neut % (Auto) 54.4 Lymph % (Auto) 36.3 [place] % (Auto) 6.0 Eos % (Auto) 2.3 Baso % (Auto) 0.8 Lymph # (Auto) 4.6 [place] # (Auto) 0.8 Eos # (Auto) 0.3 Baso # (Auto) 0.1 Abs Immat Gran (auto) 0.03 Absolute Neuts (auto) 6.9 Absolute Nucleated RBC 0.000 Nucleated RBC % (auto) 0.0 Sodium 136 Potassium 3.8 Chloride 103 Carbon Dioxide 26 Anion Gap 11 L BUN 11 Creatinine 0.72 Estim Creat Clear Calc 81.5 Estimated GFR > 60 Random Glucose 116 H Lactic Acid Calcium 8.8 Total Bilirubin 0.6 Direct Bilirubin 0.2 AST 18 ALT 21 Alkaline Phosphatase 86 Total Protein 6.6 Albumin 3.9 Lipase 21 Urine Color Dark Yellow Urine Appearance Clear Urine pH 6.5 Ur Specific [place] 1.025 Urine Protein Trace Urine Glucose (UA) Negative Urine Ketones Trace Urine Blood Trace H Urine Nitrite Negative Ur Leukocyte Esterase Trace H Urine RBC 11-20 H Urine WBC 0-5 Ur Squamous Epith Cells 6-10 Urine Bacteria None Seen Hyaline Casts 0-2 Urine Test 03/20/23 03/20/23 13:45 19:26 WBC RBC Hgb Hct MCV MCH MCHC RDW Plt Count MPV Immature Gran % (Auto) Neut % (Auto) Lymph % (Auto) [place] % (Auto) Eos % (Auto) Baso % (Auto) Lymph # (Auto) [place] # (Auto) Eos # (Auto) Baso # (Auto) Abs Immat Gran (auto) Absolute Neuts (auto) Absolute Nucleated RBC Nucleated RBC % (auto) Sodium Potassium Chloride Carbon Dioxide Anion Gap BUN Creatinine Estim Creat Clear Calc Estimated GFR Random Glucose Lactic Acid 0.9 Calcium Total Bilirubin Direct Bilirubin AST ALT Alkaline Phosphatase Total Protein Albumin Lipase Urine Color Urine Appearance Urine pH Ur Specific [place] Urine Protein Urine Glucose (UA) Urine Ketones Urine Blood Urine Nitrite Ur Leukocyte Esterase Urine RBC Urine WBC Ur Squamous Epith Cells Urine Bacteria Hyaline Casts Urine Test NEGATIVE Airway Mallampati Class: II TM Dist: >3cm Neck ROM: Full Heart: RRR Lungs: CTA Assessment and Plan Final Anesthetic Review History of Problems with Anesthesia: No ASA Class: II Final Preanesthetic Review: Meds/Allgs Chart Reviewed, Consent Obtained/Reviewed and Anes Risks/Benef Reviewed Patient Risk: Intermediate Procedure Risk: Intermediate Anesthetic Plan Anesthetic Plan: GA Disposition: Standard PACU
--- NOTE | 2023-03-21 09:04 | PC.NURSE ---
patient has IV tylenol running at time of arrival. patient has acetaminophen allergy listed in medical record. patient denying allergy at this time, states I think it was just my gallbladder and not a reaction to the medication . Dr Grace anesthesiologist aware.
--- NOTE | 2023-03-21 10:55 | W.PM.OPN ---
Operative Note Operative Note Date of Service: 03/21/23 Narrative: Preoperative diagnosis: Acute cholecystitis due to cholelithiasis Postoperative diagnosis: Same Procedure: Laparoscopic cholecystectomy Surgeon: Simba Mohr MD Bottom Cementer: JAJA Mosher Anesthesia: General endotracheal Indications for procedure: 43-year-old female patient presenting with 3 day history of abdominal pain in the right upper quadrant found to have a thickened gallbladder with gallstones by ultrasound suggestive of acute cholecystitis. Operative findings: Acutely inflamed gallbladder with evidence of chronic changes as well. Several gallstones noted within the gallbladder along with biliary sludge. Specimen: gallbladder Estimated blood loss: 25 mL Complications: none Drain: Derrick-Tian 10. Procedure details: Patient was brought to the OR and placed in a supine position. After administering general anesthesia the patient's abdomen was prepped with ChloraPrep and draped in a sterile fashion. Local anesthesia consisting of 0.5% Sensorcaine without epinephrine was infiltrated in a periumbilical region. A 5 mm incision was made above the umbilicus in a transverse fashion. The Veress needle was then inserted while elevating abdominal cavity with towel clips. After positive drop test the abdomen was insufflated to a pressure of 15 mm of mercury. The Veress needle was then removed and a 5 mm trocar inserted. The camera was inserted in the abdomen explored. A 12 mm trocar was then placed in the epigastrium. Two 5 mm trocars placed in the right upper quadrant by the assistant site manager. The patient was placed in reverse Trendelenburg positioning and rotated to the left. The gallbladder was grasped with the fundus and retracted cephalad by the assistant site manager. The infundibulum was then grasped and retracted away from the liver bed, also by the assistant site manager. The Dolphin dissected was then used by the surgeon to dissect the peritoneum off the infundibulum to reveal the junction with the cystic duct. Cystic artery was noted slightly medial and posterior to the cystic duct. After obtaining a critical view the cystic duct was doubly clipped and divided. The cystic artery was then doubly clipped and divided. The gallbladder was then dissected off the liver bed using electrocautery with an L hook. Hemostasis was assured all times using the electrocautery. When the gallbladder is completely dissected off the liver bed was placed in an Endo-Catch bag and brought out through the epigastric incision. The gallbladder was sent to pathology for further examination. The abdomen was then re-examined. The liver bed was irrigated and suctioned dry. No bleeding or bile leak could be identified. A 10 Derrick-Tian drain was left in the gallbladder fossa and brought out through the lateral trocar site. This was secured to the skin using a 3-0 nylon suture. This was then connected to a small bulb suction. CO2 was then evacuated and all trocars removed. Fascia was closed at the epigastric incision using a [id number] Polysorb suture. Skin was closed in all incisions using a subcuticular 4 0 Polysorb suture by both the surgeon and assistant site manager. Sterile dressings consisting of Steri-Strips, 2 x 2 gauze, and Tegaderm were then applied. The patient tolerated the procedure well. Sponge instrument and needle counts reported as correct. The patient was transferred to PACU in stable condition.
[2023-03-21] MEDS: HYDROmorphone HCl 0.5 MG/0.5 ML SYRINGE IVPUSH ×4 (11:11→22:51)
[2023-03-21] MEDS: fentaNYL citrate/PF 100 MCG/2 ML VIAL 25 MCG IVPUSH (11:31)
--- NOTE | 2023-03-21 12:22 | MHC.CM.PN ---
pt lives with family is independent had no previous servceis has a ride home is covid vax ..is not expected to nee services when dcd
[2023-03-21] MEDS: ondansetron HCL 4 MG/2 ML VIAL IVPUSH (13:29)
[2023-03-21] MEDS: oxyCODONE HCl Immed Release 5 MG TABLET PO ×2 (13:29→19:52)
[2023-03-21] MEDS: 0.9 % Sodium Chloride Flush 3 ML SYRINGE IVFLUSH (15:32)
[2023-03-21] MEDS: Zolpidem Tartrate 5 MG TABLET PO (22:48)
[2023-03-22] MEDS: Dextrose 5 % and Lactated Ring 1,000 ML 125 ML IVCONT (00:13)
[2023-03-22] MEDS: Piperacillin Sodium/Tazobactam 3.375 GM in 0.9 % Sodium Chloride 50 ML IV ×4 (00:13→19:15)
[2023-03-22] MEDS: Acetaminophen 1,000 MG/100 ML PIGGYBACK 400 MG IV ×4 (00:44→19:45)
[2023-03-22 03:20] VITALS: BP 119/61; PULSE 78; RESP 18; TEMP 36.8; O2SAT 95
[2023-03-22] MEDS: HYDROmorphone HCl 0.5 MG/0.5 ML SYRINGE IVPUSH (06:20)
[2023-03-22 07:25] VITALS: BP 145/71; PULSE 78; RESP 18; TEMP 36.9; O2SAT 93
--- NOTE | 2023-03-22 08:42 | P.PNGS_ITS ---
Agree with assessment and plan. Patient mainly complaining of abdominal pain from the incisions. ERIC producing serosanguineous discharge. Incisions otherwise clean and intact. Agree with need for 1 more day for pain control. Patient encouraged to get out of bed, deep breathing exercises Subjective Subjective Date of Service: 03/22/23 Interval history: Feeling very sore this morning. Having a lot of pain at incisions and RUQ. Tolerating diet but not eating a lot because she is afraid to have a BM. Would like to stay another day. Physical Exam Vital Signs: Vital Signs: Last Vital Signs Temp 98.4 F 03/22/23 07:25 Pulse 78 03/22/23 07:25 Resp 18 03/22/23 07:25 BP 145/71 H 03/22/23 07:25 Pulse Ox 93 03/22/23 07:25 O2 Del Method Room Air 03/22/23 07:25 BMI result Body Mass Index 27.1 Const: General: comfortable, no acute distress and alert Orientation/consciousness: patient oriented x3 Resp: Effort & Inspection: normal respiratory effort GI: Other: ERIC drain with serosanguineous output Inspection: No distended and Yes incision (dressings c/d/i) Palpation (GI): Soft to palpation, Tenderness to palpation present (GI) (incisional), no guarding and not rigid Skin: General skin exam: no rashes or lesions noted and no jaundice Neuro: General: patient oriented x3 Objective Data Active Medications Buprenorphine/Naloxone (Buprenorphine/Naloxone 8/2 Mg Film) 1 film SUBLINGUAL TID [facility] Last Admin: 03/21/23 20:46 Dose: Not Given Documented By: ERICA Non-Admin Reason: Patient Refused Hydromorphone HCl (Hydromorphone Hcl 0.5 Mg/0.5 Ml Syringe) 0.5 mg IVPUSH Q3H PRN; Protocol PRN Reason: Pain, Severe (Pain Scale 7-10) Last Admin: 03/22/23 06:20 Dose: 0.5 mg Documented By: ERICA Acetaminophen (Ofirmev) 1,000 mg in 100 mls @ 400 mls/hr IV Q6H [facility] Last Infusion: 03/22/23 01:03 Dose: 0 mls/hr Documented By: ERICA Dextrose/Lactated Ringer's (D5lr) 1,000 mls @ 125 mls/hr IVCONT .Q8H [facility] Last Infusion: 03/22/23 01:03 Dose: 125 mls/hr Documented By: ERICA Piperacillin Sod/Tazobactam (Sod 3.375 gm/ Sodium Chloride) 50 mls @ 100 mls/hr IV Q6H [facility] Last Infusion: 03/22/23 06:53 Dose: 0 mls/hr Documented By: ERICA Omeprazole (Omeprazole 20 Mg Capsule.Dr) 20 mg PO DAILY@0630 PRN PRN Reason: Acid Reflux Ondansetron HCl (Ondansetron Hcl 4 Mg/2 Ml Vial) 4 mg IVPUSH QID PRN PRN Reason: Nausea Last Admin: 03/21/23 13:29 Dose: 4 mg Documented By: MAYI Oxycodone HCl (Oxycodone Hcl Immed Release 5 Mg Tablet) 5 mg PO Q4H PRN PRN Reason: Pain, Moderate(Pain Scale 4-6) Last Admin: 03/21/23 19:52 Dose: 5 mg Documented By: ERICA Pharmacy Consult (Consult Rx Perform Med Rec) 1 each MISCELLANE ONCE PRN PRN Reason: Consult order Sodium Chloride (0.9 % Sodium Chloride Flush 3 Ml Syringe) 3 ml IVFLUSH QSHIFT [facility] Last Admin: 03/21/23 22:04 Dose: Not Given Documented By: ERICA Non-Admin Reason: IV Running Zolpidem Tartrate (Zolpidem Tartrate 5 Mg Tablet) 5 mg PO BEDTIME PRN PRN Reason: Insomnia Last Admin: 03/21/23 22:48 Dose: 5 mg Documented By: ERICA Labs 03/20/23 13:45 03/20/23 13:45 Microbiology Microbiology Results: Microbiology 03/20/23 19:34 Blood Culture - Preliminary Blood - Venous No growth after 24 hours. 03/20/23 19:34 Blood Culture - Preliminary Blood - Venous No growth after 24 hours. Procedures Date of Service Date of Service: 03/22/23 Progress Note: A&P Assessment and plan (1) Acute cholecystitis: Status: Acute (2) S/P laparoscopic cholecystectomy: Status: Acute Plan 43 year old female admitted with acute cholecystitis now POD #1 s/p lap CCY. C/o incisional pain exacerbated by movement. Tolerating diet. VSS. Abd exam benign with appropriate post op tenderness, dressings c/d/i. ERIC drain serosang, will remove later. Encouraged OOB/ambulation and IS use. Add colace. Dc IVF. Will keep another night for pain control, plan for dc to home tomorrow. Will remove drain prior. Time Spent With Patient Time: Total time managing care of this patient today ____ minutes. Quality Stroke Does the patient have a stroke diagnosis?: No VTE Prior VTE?: No VTE Risk Level:: Surgical - moderate VTE Device Contraindication: N/A - Device Ordered VTE Drug Contraindication: Treatment Not Indicated
[2023-03-22] MEDS: Buprenorphine/Naloxone 8/2 mg FILM 1 FILM SUBLINGUAL ×2 (09:13→15:53)
[2023-03-22] MEDS: 0.9 % Sodium Chloride Flush 3 ML SYRINGE IVFLUSH ×3 (09:14→20:42)
[2023-03-22] MEDS: Docusate Sodium 100 MG CAPSULE PO (09:14)
--- NOTE | 2023-03-22 12:00 | HO.POSTANES ---
Post Anesthesia Evaluation Post Anesthesia Evaluation Date of Service: 03/22/23 Vital Signs: Vital Signs Temp Pulse Resp BP Pulse Ox O2 Del Method 03/22/23 09:46 Room Air 03/22/23 07:25 98.4 F 78 18 145/71 H 93 Room Air 03/22/23 03:20 98.2 F 78 18 119/61 95 Room Air Anesthesia: General Endotracheal-GETA Mental Status: Awake Pain Control: Satisfactory (incisional pain) Nausea/Vomiting: None Hydration: Adequate Anesthesia-Related Issues: No Anes. Related Issues
[2023-03-22] MEDS: oxyCODONE HCl Immed Release 5 MG TABLET 10 MG PO ×3 (12:35→20:42)
--- NOTE | 2023-03-22 12:43 | MHC.CM.PN ---
per rounds pt maybe dcd today plan remains home no servceius
[2023-03-22 15:17] VITALS: BP 128/73; PULSE 78; RESP 20; TEMP 36.4; O2SAT 94
[2023-03-22 19:47] VITALS: BP 143/70; PULSE 79; RESP 18; TEMP 36.6; O2SAT 93
[2023-03-22] MEDS: Zolpidem Tartrate 5 MG TABLET PO (23:10)
[2023-03-22 23:26] VITALS: BP 125/61; PULSE 76; RESP 16; TEMP 36.7; O2SAT 94
[2023-03-23] MEDS: Piperacillin Sodium/Tazobactam 3.375 GM in 0.9 % Sodium Chloride 50 ML IV ×2 (00:32→06:00)
[2023-03-23] MEDS: Acetaminophen 1,000 MG/100 ML PIGGYBACK 400 MG IV ×2 (01:02→09:03)
[2023-03-23 04:00] VITALS: BP 138/71; PULSE 72; RESP 16; TEMP 36.4; O2SAT 93
[2023-03-23] MEDS: oxyCODONE HCl Immed Release 5 MG TABLET PO (06:42)
[2023-03-23 07:45] VITALS: BP 150/70; PULSE 68; RESP 16; TEMP 36.6; O2SAT 96
--- NOTE | 2023-03-23 08:00 | PM.PNGS ---
Subjective Subjective Date of Service: 03/23/23 Interval history: Feels well this morning. Pain significantly improved. Tolerating solid diet. Wants to go home. Physical Exam Vital Signs: Vital Signs: Last Vital Signs Temp 97.8 F 03/23/23 07:45 Pulse 68 03/23/23 07:45 Resp 16 03/23/23 07:45 BP 150/70 H 03/23/23 07:45 Pulse Ox 96 03/23/23 07:45 O2 Del Method Room Air 03/23/23 07:45 BMI result Body Mass Index 27.1 Const: General: comfortable, no acute distress and alert Orientation/consciousness: patient oriented x3 Resp: Effort & Inspection: normal respiratory effort GI: Other: ERIC drain scant output nonbilious Inspection: No distended and Yes incision (clean) Skin: General skin exam: no rashes or lesions noted Neuro: General: patient oriented x3 Objective Data Active Medications Buprenorphine/Naloxone (Buprenorphine/Naloxone 8/2 Mg Film) 1 film SUBLINGUAL TID [facility] Last Admin: 03/22/23 20:39 Dose: Not Given Documented By: ERICA Non-Admin Reason: Patient Refused Docusate Sodium (Docusate Sodium 100 Mg Capsule) 100 mg PO BID [facility] Last Admin: 03/22/23 20:41 Dose: Not Given Documented By: ERICA Non-Admin Reason: Patient Refused Hydromorphone HCl (Hydromorphone Hcl 0.5 Mg/0.5 Ml Syringe) 0.5 mg IVPUSH Q3H PRN; Protocol PRN Reason: Pain, Severe (Pain Scale 7-10) Last Admin: 03/22/23 06:20 Dose: 0.5 mg Documented By: ERICA Acetaminophen (Ofirmev) 1,000 mg in 100 mls @ 400 mls/hr IV Q6H [facility] Last Infusion: 03/23/23 01:20 Dose: 0 mls/hr Documented By: ERICA Piperacillin Sod/Tazobactam (Sod 3.375 gm/ Sodium Chloride) 50 mls @ 100 mls/hr IV Q6H [facility] Last Infusion: 03/23/23 06:30 Dose: 0 mls/hr Documented By: ERICA Omeprazole (Omeprazole 20 Mg Capsule.Dr) 20 mg PO DAILY@0630 PRN PRN Reason: Acid Reflux Ondansetron HCl (Ondansetron Hcl 4 Mg/2 Ml Vial) 4 mg IVPUSH QID PRN PRN Reason: Nausea Last Admin: 03/21/23 13:29 Dose: 4 mg Documented By: MAYI Oxycodone HCl (Oxycodone Hcl Immed Release 5 Mg Tablet) 5 mg PO Q4H PRN PRN Reason: Pain, Moderate(Pain Scale 4-6) Last Admin: 03/23/23 06:42 Dose: 5 mg Documented By: ERICA Oxycodone HCl (Oxycodone Hcl Immed Release 5 Mg Tablet) 10 mg PO Q4H PRN PRN Reason: Pain, Severe (Pain Scale 7-10) Last Admin: 03/22/23 20:42 Dose: 10 mg Documented By: ERICA Pharmacy Consult (Consult Rx Perform Med Rec) 1 each MISCELLANE ONCE PRN PRN Reason: Consult order Sodium Chloride (0.9 % Sodium Chloride Flush 3 Ml Syringe) [facility] Last Admin: 03/22/23 20:42 Dose: 3 ml Documented By: ERICA Zolpidem Tartrate (Zolpidem Tartrate 5 Mg Tablet) 5 mg PO BEDTIME PRN PRN Reason: Insomnia Last Admin: 03/22/23 23:10 Dose: 5 mg Documented By: ERICA Labs 03/20/23 13:45 03/20/23 13:45 Microbiology Microbiology Results: Microbiology 03/20/23 19:34 Blood Culture - Preliminary Blood - Venous No growth after 48 hours. 03/20/23 19:34 Blood Culture - Preliminary Blood - Venous No growth after 48 hours. Procedures Date of Service Date of Service: 03/23/23 Progress Note: A&P Assessment and plan (1) S/P laparoscopic cholecystectomy: Status: Acute (2) Acute cholecystitis: Status: Acute Plan POD #2 s/p lap CCY. Doing well post op. Good pain control. Tolerating solid diet. Abd exam benign, clean incisions, mild incisional tenderness. ERIC drain nonbilious output and removed. StAble for dc to home today. F/u in office in [address] Mohr. Time Spent With Patient Time: Total time managing care of this patient today ____ minutes. Quality Stroke Does the patient have a stroke diagnosis?: No VTE Prior VTE?: No VTE Risk Level:: Surgical - moderate VTE Device Contraindication: N/A - Device Ordered VTE Drug Contraindication: Treatment Not Indicated
--- NOTE | 2023-03-23 08:48 | MHC.CM.PN ---
PT TO DC HOME TODAY WITH NO SERVICES PT TO ARRANGE TRANSPORT
[2023-03-23] MEDS: 0.9 % Sodium Chloride Flush 3 ML SYRINGE IVFLUSH (09:02)
[2023-03-23] MEDS: oxyCODONE HCl Immed Release 5 MG TABLET 10 MG PO (09:02)
--- NOTE | 2023-03-23 12:53 | P.DS_ITS ---
DS: Providers Provider Date of Service: 03/23/23 Date of admission: 03/20/23 19:26 Date of discharge: 03/23/23 Primary care physician: GAMA Yañez Attending physician on admission: Simba Mohr DS: Diagnosis Discharge Diagnosis (1) S/P laparoscopic cholecystectomy: Status: Acute (2) Acute cholecystitis: Status: Acute DS: Summary Hospital Course Hospital Course: HPI AT ADMISSION: Floridalma Larry is a 43 year old female presenting with complaints of abdominal pain in the epigastrium and right upper quadrant starting 4 days ago.? The pain was associated with nausea, vomiting .? She denies a previous history of similar pain.? She presented to the emergency department after the pain did not improve over the past 4 days.? She has been 2nd eating mainly clear liquids for the past 24 hours.? She presented to the emergency department was noted to be tender in the right upper quadrant and epigastrium.? Ultrasound of the abdomen revealed gallstones within the gall bladder along with sludge, thickened gallbladder wall and pericholecystic fluid.? Common bile duct is normal.? Findings were suggestive of acute cholecystitis due to cholelithiasis. HOSPITAL COURSE: She was admitted to the surgical service for further treatment of acute cholecystitis. It was recommended to proceed with laparoscopic cholecystectomy. She agreed. She was added onto the OR schedule for the following day. On 03/21/23, a laparoscopic cholecystectomy was performed by Dr. Mohr without complication. The gallbladder was acutely inflamed with evidence of chronic changes as well. A ERIC drain was placed intraoperatively. She tolerated the procedure well. She had an uncomplicated recovery course; she remained inpatient until POD #2 for IV abx and pain control. On the day of discharge, she was tolerating a solid diet without N/V, had adequate pain control on oral analgesics. Her abdomen was benign with clean incisions. Her ERIC drain had scanty nonbilious output and was removed. She was discharged to home on 03/23/23 in stable condition. She is to follow up in the office in 1 week. Status at Discharge Functional status at discharge: independent ambulation Overall status at discharge: patient is progressing back to baseline Time Spent with Patient Time attestation: Total time managing care of this patient today ____ minutes. Discharge coordination time: Less than 30 minutes Quality: Safe Use of Opioids Does Pt have an Active Cancer Diagnosis on the Problem List?: No Quality: Stroke Does the patient have a stroke diagnosis?: No Physical Exam Vital Signs: Vital Signs: Last Vital Signs Temp 97.8 F 03/23/23 07:45 Pulse 68 03/23/23 07:45 Resp 16 03/23/23 07:45 BP 150/70 H 03/23/23 07:45 Pulse Ox 96 03/23/23 07:45 O2 Del Method Room Air 03/23/23 09:00 BMI result Body Mass Index 27.1 Const: General: comfortable, no acute distress and alert Orientation/consciousness: patient oriented x3 Resp: Effort & Inspection: normal respiratory effort GI: Other: ERIC drain serosanguineous drainage, removed Inspection: No distended and Yes incision (clean) Palpation (GI): Soft to palpation, Tenderness to palpation present (GI) (mild, incisional), no guarding and not rigid Skin: General skin exam: no rashes or lesions noted and no jaundice Neuro: General: patient oriented x3 DS: Data Data Completed and Pending Completed studies during hospitalization [Text1]: 03/21/23 10:39 Surgical [PTH] Routine Gallbladder, cholecystectomy:? Acute and chronic cholecystitis with mucosal hemorrhage. Labs on day of discharge: Preliminary micro results at discharge 03/20/23 19:34 Blood Culture - Preliminary Blood - Venous No growth after 48 hours. 03/20/23 19:34 Blood Culture - Preliminary Blood - Venous No growth after 48 hours. Discharge Plan Discharge Anticipated Discharge Date/Time: 03/23/23 08:03 Patient Disposition: Home, Self-Care Discharge Diagnosis: acute cholecystitis Referrals: Simba Mohr MD [Physician] - 1 Week Mandi Crenshaw FNP [Primary Care Provider] - 1 Week Discharge Medications: New docusate sodium [Colace] 100 mg capsule 100 mg PO BID Qty: 30 0RF oxycodone 5 mg tablet 5 mg PO Q4H PRN (Reason: pain) Qty: 24 0RF Rx Instructions: Partial Fill upon patient request. Continued betamethasone dipropionate 0.05 % ointment 1 appl topical BID PRN (Reason: Rash) Humira(CF) Pen 40 mg/0.4 mL pen injector kit 40 mg subcut VIEIRA@0900 omeprazole 20 mg capsule,delayed release(DR/EC) 20 mg PO DAILY@0630 PRN (Reason: Acid Reflux) cholecalciferol (vitamin D3) 25 mcg (1,000 unit) tablet 25 mcg PO DAILY adapalene 0.3 % gel 1 appl topical BEDTIME clindamycin phosphate 1 % lotion 1 appl topical BID buprenorphine-naloxone [Suboxone] 8-2 mg film 1 film sublingual TID Discharge Orders: Discharge Order (Routine); Ordered 03/23/23 Ordered By: Nathalie Hill Diet: Low fat, low cholesterol Activity on Discharge: No heavy lifting Stand Alone Forms: Patient Portal Discharge page Activity Restrictions/Additional Instructions: If the incision area is tender, you may apply an ice pack for short intervals (No more than 20 minutes on, followed by at least 20 minutes off). Do not apply heat. Do not use creams, lotions, or topical antibiotics. These can cause infection or allergic reaction. Ok to shower. Remove clear dressings 3 days following your procedure. You have steri strips (small white cloth strips) covering your incision- these will fall off ~1 week. No heavy lifting (>10lbs) or strenuous activity! Follow up in office with Dr. Mohr in 1 week. ([phone]) Call Your Doctor If: -Your temperature exceeds 101.5? F -You experience excessive pain or swelling -You have an unexpected reaction to medication -You have excessive bleeding -You experience continued vomiting/nausea -Your incision begins to separate -Your incision shows signs of infection such as increased redness, swelling, excessive pain, drainage (light blood or clear fluid is normal) or heat Care Plan Goals: Return to baseline health and resume normal activities following recovery period. Health Concerns: acute cholecystitis Plan of Treatment: s/p laparoscopic cholecystectomy f/u in office in 1 week Assessment: Doing well post op. Discharge Date/Time: 03/23/23 11:27
== END 2023-03-23 11:27 | disposition home or self-care (01) | DRG 419 ==
LOC: HO.ED 19:34 → HO.EDOVER 19:36 → HO.S3 19:46
PROVIDERS: Nurse Practitioner Family; Admitting Provider Surgery; Emergency Provider Student in an Organized Health Care Education/Training Program; PCP Nurse Practitioner Family; Visit Provider Surgery
PROC: 0FT44ZZ Resection of Gallbladder, Percutaneous Endoscopic Approach (ICD-10-PCS; CPT 47562; principal; 2023-03-21 09:00)
DX: K80.12 Calculus of gallbladder with acute and chronic cholecystitis without obstruction (principal); F31.9 Bipolar disorder, unspecified; Z88.5 Allergy status to narcotic agent; Z88.6 Allergy status to analgesic agent; Z79.899 Other long term (current) drug therapy
CPT/HCPCS: 36415; 76705; 80048; 80076; 81001; 81025; 83605; 83690; 85025; 87040; 88304; 99285; J0131; J1100; J1170; J1885; J2250; J2405; J2543; J3010

== ENCOUNTER → 2023-03-30 10:03 | Outpatient (BNVA) | payer OTHER, SELFPAY | PROVIDERS: PCP Nurse Practitioner Family; Visit Provider Surgery | DX: K81.0 Acute cholecystitis (principal); Z90.49 Acquired absence of other specified parts of digestive tract | CPT/HCPCS: 99212 ==

== ENCOUNTER 2023-06-13 16:09 | Outpatient (AMB) | payer OTHER, SELFPAY ==
[2023-06-13 16:27] VITALS: BP 110/72; PULSE 74; O2SAT 99; BMI 27.5
--- NOTE | 2023-06-13 16:27 | A.OFFPC_ITS ---
Vital Signs 06/13/23 16:27 Height 5 ft Weight 141 lb BMI 27.5 BP 110/72 Blood Pressure Location Rt brachial Position Sitting Pulse 74 Pulse Source Pulse Oximeter Temp Source Skin Pulse Oximetry (%) 99 Oxygen Delivery Method Room Air Intake Visit Reasons: follow up chronic issues Hospital Carrier Required: No Allergies ibuprofen [From Motrin] Allergy (Mild, Verified 06/13/23 16:44) Gastrointestinal Upset acetaminophen [From Vicodin] Allergy (Unknown, Verified 06/13/23 16:44) Gastrointestinal Upset hydrocodone [From Vicodin] Allergy (Unknown, Verified 06/13/23 16:44) Gastrointestinal Upset Medication List - Last Reconciled 06/13/23 by GAMA Yañez adalimumab (Humira(CF) Pen) 40 mg subcut VIEIRA@0900 adapalene 0.3% 1 appl topical BEDTIME betamethasone dipropionate 0.05% 1 appl topical BID PRN buprenorphine-naloxone 8-2 mg (Suboxone) 1 film sublingual TID cholecalciferol (vitamin D3) 25 mcg PO DAILY clindamycin phosphate 1% 1 appl topical BID Tobacco use date assessed: 06/13/23 Dental Screening Dental Screen Date: 06/13/23 Did you have a dental visit in the last 12 months?: Yes Did you have a dental problem in the last 6 months where you did not have access to dental care?: No HPI follow up chronic issues HPI Details Patient is a 43-year-old female who presents today for a routine follow-up. Medical history significant for smoking, mood swings, GERD, bipolar 1 disorder-patient was seen by Psychiatry and counseling-she was discharged from the practice 5 months ago due to missing few appointments-mental health medications were stopped as well-patient reports that she started seeing news therapist on weekly basis and she will be seeing new psychiatry 06/30/2023-patient would like to restart on Wellbutrin until she start seeing psychiatry-she was on Wellbutrin 300 mg in the past. Patient denies shortness of breath or chest pain. Patient denies GI symptoms since having gallbladder removal surgery. PHQ-9 score 18, patient denies SI or HI. Patient is on Suboxone. PFSH Medical History Diarrhea History of depression History of exposure to HIV Hx of anxiety disorder Hx of bipolar disorder Hx of hearing loss Hx of psoriasis Periorbital cellulitis of left eye Surgical History History of tubal ligation Hx laparoscopic cholecystectomy (03/21/23) Family History Father Depression Mother HTN (hypertension) Diabetes mellitus Sister No problems noted. Sister No problems noted. Son No problems noted. Son No problems noted. Daughter No problems noted. 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 1. Little interest or pleasure in doing things: nearly every day 2. Feeling down, depressed, or hopeless: nearly every day 3. Trouble falling or staying asleep, or sleeping too much: nearly every day 4. Feeling tired or having little energy: nearly every day 5. Poor appetite or overeating: nearly every day 6. Feeling bad about yourself - or that you are a failure or have let yourself or your family down: not at all 7. Trouble concentrating on things, such as reading the newspaper or watching television: nearly every day 8. Moving or speaking so slowly that other people could have noticed. Or the opposite - being so fidgety or restless that you have been moving around a lot more than usual: not at all 9. Thoughts that you would be better off or of hurting yourself in some way: not at all Total score: 18 Depression Screening Interpretation: Positive Depression Screening Follow-up: In treatment and New Medication prescribed 75646 - PHQ-9 Billing: Yes Source: Developed by Drs. Migel Saldivar, Stefani Larson, Elian Townsend and colleagues, with an educational juan david from [employer]. Thrive Questionnaire Date Thrive assessed: 12/21/22 AUDIT C Alcohol Use Questionnaire (AUDIT-C) 1. How often do you have a drink containing alcohol?: 2-4 times a month 2. How many drinks containing alcohol do you have on a typical day when you are drinking?: 1 or 2 3. How often do you have six or more drinks on one occasion?: Never Total Score: 2 Score Reviewed/Action Taken: No RANCHO-7 AMB Questionnaire RANCHO-7 Date RANCHO - 7 assessed: 06/13/23 Feeling nervous, anxious, or on edge: 3 = Nearly every day Not being able to stop or control worryin = Nearly every day Worrying too much about different things: 0 = Not at all Trouble relaxin = Not at all Being so restless that it is hard to sit still: 0 = Not at all Becoming easily annoyed or irritable: 0 = Not at all Feeling afraid as if something awful might happen: 0 = Not at all Total RANCHO-7 score (0-4 normal; 5-9 mild; 10-14 moderate; 15-21 severe): 6 Source: Developed by Drs. Migel Saldivar, Stefani Larson, Elian Townsend and colleagues, with an educational juan david from [employer]. RANCHO-7 Assessment Billing RANCHO-7 Assessment Tool: RANCHO-7 Assessment 72184 Review of Systems Const Denies body aches, Denies chills, Denies fever(s) and Denies headache(s) Eyes Denies change in vision ENT Denies dizziness, Denies otalgia, Denies headache(s), Denies nasal discharge, Denies sinus pain and Denies sore throat Card Denies chest pain, Denies edema, Denies lightheadedness and Denies dyspnea Resp Denies cough, Denies dyspnea and Denies wheezing GI Denies abdominal pain, Denies constipation, Denies diarrhea, Denies nausea and Denies vomiting Denies dysuria Musc Denies myalgias Skin/Breast Denies rash Neuro Denies dizziness and Denies headache(s) Aller/Immun Denies wheezing Physical exam (Primary Care) Vital Signs: Last Vital Signs Pulse 74 06/13/23 16:27 BP 110/72 06/13/23 16:27 Pulse Ox 99 06/13/23 16:27 Oxygen Delivery Method Room Air 06/13/23 16:27 BMI result Body Mass Index 27.5 Tobacco/Smoking Status: Tobacco use Status Tobacco use date assessed 06/13/23 06/13/23 16:34 Patient Tobacco Use Status Current everyday Tobacco 06/13/23 16:34 Tobacco use type Cigarette 06/13/23 16:34 e-Cigarette/Vaping Use Currently Using 06/13/23 16:34 PHQ-9: PHQ-9 Score PHQ-9: Total score 18 06/13/23 16:34 Depression Screening Interpretation: Positive Depression Screening Follow-up: In treatment and New Medication prescribed Thrive Assessment: Date of Thrive Assessment Date Thrive assessed 12/21/22 06/13/23 16:34 Const General: cooperative and no acute distress Orientation/consciousness: patient oriented x3 HENMT Head: Yes normocephalic and Yes atraumatic Face and sinus: Yes sinuses nontender Mouth: oropharynx normal and moist mucous membranes Throat: Yes posterior oropharynx normal Eyes General: appearance normal, both eyes and all related structures Neck Neck: Yes normal visual inspection, Yes full ROM and Yes no lymphadenopathy Resp Effort & Inspection: normal respiratory effort and able to speak in complete sentences Auscultation: clear to auscultation bilaterally, no crackles, no rales, no rhonchi and no wheezes Cardio Rate: regular rate Rhythm: regular rhythm Heart sounds: S1 normal heart sound present and S2 normal heart sound present GI Auscultation: normal bowel sounds Skin General skin exam: no rashes or lesions noted Neuro General: patient oriented x3 Gait exam (Neuro): Normal gait present Extrem General: Yes full ROM and No edema Assessment and Plan Assessment & Plan (1) Bipolar 1 disorder: Code(s): F31.9 - Bipolar disorder, unspecified Plan: Start Wellbutrin 100 mg daily Continue to follow-up with therapist Patient will be seeing new psychiatry 06/30/2023 who will take over mental health medication (2) GERD (gastroesophageal reflux disease): Comment: Smoker Code(s): K21.9 - Gastro-esophageal reflux disease without esophagitis Plan: Diet controlled Avoid GERD trigger foods Do not lay down 2-3 hours after evening meal Medications: New bupropion HCl (Wellbutrin SR) 100 mg PO DAILY 30 tabs 0RF F31.9 - Bipolar disorder, unspecified Discontinued omeprazole 20 mg PO DAILY 90 days 90 caps 0RF Coding Level of Care Code Est Pt Level 3 (53506) Diagnoses Bipolar 1 disorder F31.9 GERD (gastroesophageal reflux disease) K21.9 Additional Codes RANCHO-7 Assessment Billing - RANCHO-7 Assessment Tool: RANCHO-7 Assessment 21720 ([id number])
== END 2023-06-13 17:16 | disposition home or self-care (01) ==
PROVIDERS: PCP Nurse Practitioner Family; Visit Provider Nurse Practitioner Family
DX: F31.9 Bipolar disorder, unspecified (principal); K21.9 Gastro-esophageal reflux disease without esophagitis
CPT/HCPCS: 96127; 99213

== ENCOUNTER 2023-07-19 14:32 | Outpatient (AMB) | payer OTHER, SELFPAY ==
--- NOTE | 2023-07-19 14:39 | A.OFFVIS_ITS ---
Intake Vital Signs 07/19/23 14:51 Height 5 ft Weight 140 lb BMI 27.3 BP 116/70 Intake Visit Reasons: yeast infection Intake Note: Itching on outside of vaginal area, possible yeast infection. Stunt Double Required: No Information Interpreted: non-clinical & clinical Chemical Blender: Chemical Blender Present (Aidyn) Allergies ibuprofen [From Motrin] Allergy (Mild, Verified 07/19/23 14:52) Gastrointestinal Upset acetaminophen [From Vicodin] Allergy (Unknown, Verified 07/19/23 14:52) Gastrointestinal Upset hydrocodone [From Vicodin] Allergy (Unknown, Verified 07/19/23 14:52) Gastrointestinal Upset Medication List - Last Reconciled 07/19/23 by Caitlin Doherty CNM adalimumab (Humira(CF) Pen) 40 mg subcut VIEIRA@0900 adapalene 0.3% 1 appl topical BEDTIME betamethasone dipropionate 0.05% 1 appl topical BID PRN buprenorphine-naloxone 8-2 mg (Suboxone) 1 film sublingual TID bupropion HCl (Wellbutrin SR) 100 mg PO DAILY cholecalciferol (vitamin D3) 25 mcg PO DAILY clindamycin phosphate 1% 1 appl topical BID Is last menstrual period known: Yes Last menstrual period: 07/08/23 Post menopausal: No HPI yeast infection HPI Details Patient is here because she thinks she has a yeast infection. She also shared at the end that she also has psoriasis but it is very well controlled with Humira right now and she did wonder if there could be a connection because the yeast on the outside does feel little bit like when she has the psoriasis. Mostly what she talked about today was that it she was very glad to see me as she she recalled that I helped her deliver her 1st baby and her other babies as well but the 1st 1 was 30 years ago. She has broken up with her of 14 years and has been battling depression a lot and for 6 months she says she barely left the house and she has just recently started with a new psychiatrist and counselor and it today this very day is going to be starting on a brand new medication for depression and today she left the house for the 1st time and took her dog for a walk and was even talking with folks she met on the street though she felt herself anxious at the time because this isn't something she normally does she had likes to keep to herself but she is trying to take baby steps. She feels like it was a be deal to even get here for this appointment. [facility] Medical History Diarrhea Periorbital cellulitis of left eye Hx of hearing loss Hx of psoriasis Hx of bipolar disorder History of exposure to HIV Hx of anxiety disorder History of depression Surgical History Hx laparoscopic cholecystectomy (03/21/23) History of tubal ligation Family History Father Depression Mother HTN (hypertension) Diabetes mellitus Sister No problems noted. Sister No problems noted. Son No problems noted. Son No problems noted. Daughter No problems noted. 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 Sexual orientation: Straight/Heterosexual Gender identity: Female Cognitive needs: No Hearing needs: Yes (hearing aide) Vision needs: Yes (glasses) Female Reproductive History Menstrual Age of Menarche: 11 Date of last menstrual period: 07/08/23 control method: other (tubal ligation) Number of Living Children: 3 Date of last pap smear: 01/17/22 (negative) History of abnormal pap smear: No Date of Mammogram: 02/07/22 Physical Exam Vital Signs: Last Vital Signs BP 116/70 07/19/23 14:51 BMI result Body Mass Index 27.3 Other: External groin area is reddened and inflamed which could be consistent with e ither candidiasis or tinea cruris. Most of the irritation is external to and remote from the vulva. She says it is very itchy and burny, she has had a little bit of of whitish clear discharge but it is not itchy inside at all. Cervix is pink and smooth with very normal appearing whitish discharge. Results Reviewed Results Reviewed: Name: Floridalma Larry Age/Sex: 41/F Attending: Mendez Cadet MD : 1980 Submitted by: Mendez Cadet MD Copies to: Terell Kunz MD MR #: [id number] Status: DEP REF Collected: 01/14/22 Location: .LAB Received: 01/17/22 Interpretation Satisfactory for evaluation. Negative for intraepithelial lesion or malignancy. Coccobacilli consistent with shift in vaginal mireille. HPV mRNA E6/E7: NOT DETECTED This assay detects E6/E7 viral messenger RNA (mRNA) from 14 high-risk HPV types (16, 18, 31, 33, 35, 39, 45, 51, 52, 56, 58, 59, 66, 68) HPV testing performed by [facility], [place], [place]. See reference laboratory portion of the EMR for entire report. Clinical Information LMP: 12/2021 Previous PAP test: 2014, WNL Material Received ThinPrep-Cervical Copies To Terell Kunz MD [address] [facility] [address] [place] [id number] Mendez Cadet MD [address] [place] [address] Dr. Marcial [address] [place] [address] [place] [id number] Electronically Signed By: Yi Colbert 01/31/22 1132 The Pap Test is a screening procedure with the inherent possibility of both false negative and false positive results. Results should be interpreted in the context of historic and current clinical findings. Reliability of the Pap Test is enhanced by performing the test on a regular repetitive basis. Patient: Floridamla Larry Age/Sex: 41/F MR#: [id number] Page 1 of 1 Assessment & Plan Assessment & Plan (1) Potential exposure to STD: Code(s): Z20.2 - Contact with and (suspected) exposure to infections with a predominantly sexual mode of transmission (2) Candidiasis of genitalia in female: Comment: Appears mostly limited to the groin area actually, await internal cultures Code(s): B37.31 - Acute candidiasis of vulva and vagina (3) History of depression: Code(s): Z86.59 - Personal history of other mental and behavioral disorders Plan ---I reviewed her symptoms we reviewed what she may have done alleviate symptoms. I reviewed contributing factors to yeast infection including clothing that may be a little tight or does not permit air to pass to the vulva well, including non cotton underwear, nylon and polyester type workout clothes and yoga pants, use of panty liners pads for periods etc. My recommendations include use of the medication that we decided upon, allowing air to her vulva as much as possible including wearing cotton underwear and possibly no underwear at night when possible. Any other contributing factors were explored. I encouraged her not to scratch. I reviewed what to do when she feels symptoms first starting, (re-double her efforts at allowing air to the area.) In her case since it is mostly external and in the groin it also may be somewhat related to her psoriasis. I am prescribing antifungal steroid cream for her to use only externally and no longer than 2 weeks. All I also reviewed to wear cotton underwear and maybe to go with baggy boxer shorts in the house at night when she is home alone. While she thought her underwear was cotton it clearly is not we checked the label together. Additionally if anything shows up on the inside tests/vaginal tests we will call her and tell her about them. We can see her whenever she is due for an annual exam. Wished her all the best on her taking baby steps to work on her depression and get to a better place. Orders: Orders Bacterial Vaginosis Panel Today N89.8 - Other specified noninflammatory disorders of vagina CT NG by PCR Today N89.8 - Other specified noninflammatory disorders of vagina Medications: New clotrimazole-betamethasone 1-0.05 % May apply up to twice a day up to 14 days maximum to external area only. 1 appl topical BID 2 weeks 45 grams 2RF Coding Level of Care Code Est Pt Level 3 (08293) Diagnoses Potential exposure to STD Z20.2 Candidiasis of genitalia in female B37.31 History of depression Z86.59
[2023-07-19 14:51] VITALS: BP 116/70; BMI 27.3
== END 2023-07-19 16:03 | disposition home or self-care (01) ==
PROVIDERS: PCP Nurse Practitioner Family; Visit Provider Advanced Practice Midwife
DX: Z20.2 Contact with and (suspected) exposure to infections with a predominantly sexual mode of transmission (principal); B37.31 Acute candidiasis of vulva and vagina; Z86.59 Personal history of other mental and behavioral disorders
CPT/HCPCS: 99213

== ENCOUNTER 2023-07-19 14:32 | Outpatient (REF) | payer OTHER, SELFPAY ==
[2023-07-19 18:40] LABS: CT PCR NOT DETECTED (Not Detect.); NG PCR NOT DETECTED (Not Detect.)
[2023-07-20 14:30] LABS: BV Int Neg Control Negative (Negative); BV Int Pos Control Positive (Positive)
== END 2023-07-19 14:33 | disposition home or self-care (01) ==
LOC: HO.LNP 14:32
PROVIDERS: PCP Nurse Practitioner Family; Visit Provider Advanced Practice Midwife
DX: Z20.2 Contact with and (suspected) exposure to infections with a predominantly sexual mode of transmission (principal); N89.8 Other specified noninflammatory disorders of vagina; B37.31 Acute candidiasis of vulva and vagina; Z86.59 Personal history of other mental and behavioral disorders
CPT/HCPCS: 0353U; 87480; 87510; 87660; 99212

== ENCOUNTER 2023-09-18 12:18 | Outpatient (REF) | payer OTHER, SELFPAY ==
[2023-09-20 21:38] LABS: TS Negative Control Passed; TS Panel A 0; TS Panel B 1; TS Positive Control Passed; TSpotTB Negative (Negative)
== END 2023-09-18 12:19 | disposition home or self-care (01) ==
LOC: HO.HMGCLDS 12:18
PROVIDERS: PCP Nurse Practitioner Family; Visit Provider Dermatology
DX: Z11.1 Encounter for screening for respiratory tuberculosis (principal); L73.2 Hidradenitis suppurativa; Z79.899 Other long term (current) drug therapy
CPT/HCPCS: 36415; 86481

== ENCOUNTER 2023-09-28 14:58 | Outpatient (REF) | payer OTHER, SELFPAY | END 2023-09-28 14:59 | disposition home or self-care (01) | LOC: HO.MAMMO 14:58 | PROVIDERS: PCP Nurse Practitioner Family; Visit Provider Obstetrics & Gynecology | DX: Z12.31 Encounter for screening mammogram for malignant neoplasm of breast (principal) | CPT/HCPCS: 77063; 77067 ==

== ENCOUNTER → 2023-09-28 15:00 | Outpatient (BNV) | payer OTHER, SELFPAY | PROVIDERS: PCP Nurse Practitioner Family; Visit Provider Radiology Diagnostic Radiology | DX: Z12.31 Encounter for screening mammogram for malignant neoplasm of breast (principal) | CPT/HCPCS: 77063; 77067 ==

== ENCOUNTER 2023-11-08 14:48 | Outpatient (REF) | payer OTHER, SELFPAY ==
[2023-11-09 02:04] LABS: CT PCR NOT DETECTED (Not Detect.); NG PCR NOT DETECTED (Not Detect.)
[2023-11-09 09:23] LABS: BV Int Neg Control Negative (Negative); BV Int Pos Control Positive (Positive)
== END 2023-11-08 14:49 | disposition home or self-care (01) ==
LOC: HO.LAB 14:48
PROVIDERS: PCP Nurse Practitioner Family; Visit Provider Advanced Practice Midwife
DX: Z01.419 Encounter for gynecological examination (general) (routine) without abnormal findings (principal); M62.89 Other specified disorders of muscle; Z20.2 Contact with and (suspected) exposure to infections with a predominantly sexual mode of transmission; Z79.899 Other long term (current) drug therapy
CPT/HCPCS: 0353U; 87480; 87510; 87660

== ENCOUNTER 2023-11-08 14:48 | Outpatient (AMB) | payer OTHER, SELFPAY ==
[2023-11-08 15:28] VITALS: BP 136/72; BMI 27.3
--- NOTE | 2023-11-08 15:28 | A.OFFVIS_ITS ---
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 Ribbon Winder Required: No Information Interpreted: clinical only Freight Flow Sales Leader: Freight Flow Sales Leader Present Allergies ibuprofen [From Motrin] Allergy (Mild, Verified 11/08/23 15:28) Gastrointestinal Upset acetaminophen [From Vicodin] Allergy (Unknown, Verified 11/08/23 15:28) Gastrointestinal Upset hydrocodone [From Vicodin] Allergy (Unknown, Verified 11/08/23 15:28) Gastrointestinal Upset Medication List - Last Reconciled 11/08/23 by Caitlin Doherty CNM adalimumab (Humira(CF) Pen) 40 mg subcut VIEIRA@0900 adapalene 0.3% 1 appl topical BEDTIME betamethasone dipropionate 0.05% 1 appl topical BID PRN buprenorphine-naloxone 8-2 mg (Suboxone) 1 film sublingual TID bupropion HCl (Wellbutrin SR) 100 mg PO DAILY cholecalciferol (vitamin D3) 25 mcg PO DAILY clindamycin phosphate 1% 1 appl topical BID clotrimazole-betamethasone 1-0.05 % 1 appl topical BID 2 weeks Is last menstrual period known: Yes (10/12/23) Do you need a note to return to daycare/school/sports/work: No HPI SALES REPRESENTATIVE 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 She says she is doing much better since the time she saw me a few months ago when she was very very depressed after the end of a long-term many year relationship. She said she started getting out of the house and she is on medication for depression and she is feeling so much better and she is living life now she is sexually active sometimes she thinks she might have a bacterial infection so she would like to get checked for that but that is really all she is worried about. She feels she is eating good and taking good care of herself and is not having any concerns for herself. She brought her 19-year-old daughter with her to the visit who she says I would helped her deliver as well as her 30-year-old son. She says she is concerned about her daughter because her daughter has newly found out she is and does not have a visit to be seen yet and is nauseous and throwing up a lot and is going to [place] for scheduled trip but does not have a visit to be seen until after she comes back and she wanted me to talk with her and check her out during this visit. [facility] Medical History Diarrhea Periorbital cellulitis of left eye Hx of hearing loss Hx of psoriasis Hx of bipolar disorder History of exposure to HIV Hx of anxiety disorder History of depression Surgical History Hx laparoscopic cholecystectomy (03/21/23) History of tubal ligation Family History Father Depression Mother HTN (hypertension) Diabetes mellitus Sister No problems noted. Sister No problems noted. Son No problems noted. Son No problems noted. Daughter No problems noted. 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 Sexual orientation: Straight/Heterosexual Gender identity: Female Cognitive needs: No Hearing needs: Yes (hearing aide) Vision needs: Yes (glasses) Female Reproductive History Menstrual Age of Menarche: 11 Duration of menses: 3-5 days control method: permanent sterilization Total pregnancies: 5 Full term: 5 Date of last pap smear: 01/17/22 (neg, previous pap 2014,neg.) History of abnormal pap smear: No Physical Exam Vital Signs: Last Vital Signs BP 136/72 11/08/23 15:28 BMI result Body Mass Index 27.3 Const General: healthy appearing, comfortable, no acute distress, well developed and alert Nutritional Appearance: average body habitus Orientation/consciousness: patient oriented x3 Limitations: no limitations HEENT Head: Yes normocephalic Neck Neck: Yes normal visual inspection Chest Chest palpation & inspection: normal inspection of the chest Breast/axilla inspection: normal inspection of the breasts and normal inspection of the axillae Breast/axilla palpation: normal palpation of the breasts and normal palpation of the axillae Resp Effort & Inspection: normal respiratory effort GI Inspection: Yes normal to inspection, No Abdominal wall edema and No distended Palpation (GI): Soft to palpation and nontender Other: Normal external exam vagina normal difficulty finding cervix with speculum today but cervix was midposition mobile nontender. Discharge appeared white somewhat homogeneous will await testing results. Uterus small midposition nontender mobile adnexa not enlarged at all patient was not able to reproduce a Kegel exercise during this visit and says she never can do this. General: Yes bladder normal to palpation External Female Exam: normal external appearance and normal appearance of the urethra Speculum Exam - Vagina: normal appearance of the vagina, normal palpation and normal vaginal discharge Speculum Exam - Cervix: normal appearance of the cervix, normal palpation and nontender Bimanual exam- vagina & uterus: normal bimanual exam, normal palpation, uterine size normal, bladder normal to palpation, consistency normal, normal palpation, uterine mobility normal, uterine shape normal, No Cervical tenderness present, non-tender and no cervical motion tenderness Bimanual Exam- Adnexa, other: normal adnexae, no masses, normal and No adnexal tenderness Neuro General: patient oriented x3 Assessment & Plan Assessment & Plan (1) Potential exposure to STD: Code(s): Z20.2 - Contact with and (suspected) exposure to infections with a predominantly sexual mode of transmission (2) Cervical cancer screening: Code(s): Z12.4 - Encounter for screening for malignant neoplasm of cervix (3) Pelvic floor dysfunction: Comment: pt unable to do a kegel- will refer to pt for more thorough teaching Code(s): M62.89 - Other specified disorders of muscle Plan -----Discussed in this visit the following: healthy balanced diet, regular and consistent exercise, getting recommended health screens, doing the best she can for her particular health concerns, kegel exercises, pap smear screening and followup recommendations, mammography screening and SBE, normal changes in cycles in her life stage--- . She says she is up-to-date on her mammograms having just had 1 a couple months ago and she did not eat any other blood work. She did bring up that she had had some sort of cyst on her ovary that was noted a few years back but it is not causing her any trouble and she is has no pain or abnormal bleeding at all in her periods are regular. If any testing shows bacterial vaginosis she will be treated in offered prescriptions that per protocol and her choice She is feeling overall so much better than the last time I saw her and really did not have any interpretative dancer concerns today she is open to pelvic floor therapy because she has never been able to do the Kegel exercises that we try to have her do possible that they will be able to devote a little bit more time to the teaching that is involved then I can during 1 visit. She wanted her daughter to be checked so her daughter was quickly registered for a problem visit.. Orders: Orders CT NG by PCR Today Z01.419 - Encounter for gynecological examination (general) (routine) without abnormal findings Bacterial Vaginosis Panel Today Z20.2 - Contact with and (suspected) exposure to infections with a predominantly sexual mode of transmission Referrals Pelvic Supervisor Telephone Information Referral M62.89 - Other specified disorders of muscle Coding Level of Care Code Est Pt Prev Care 40-64y(64963) Diagnoses Potential exposure to STD Z20.2 Cervical cancer screening Z12.4 Pelvic floor dysfunction M62.89
== END 2023-11-08 16:18 | disposition home or self-care (01) ==
LOC: HO.HWSM 14:48
PROVIDERS: PCP Nurse Practitioner Family; Visit Provider Advanced Practice Midwife
DX: Z01.419 Encounter for gynecological examination (general) (routine) without abnormal findings (principal); M62.89 Other specified disorders of muscle; Z20.2 Contact with and (suspected) exposure to infections with a predominantly sexual mode of transmission
CPT/HCPCS: 99396

== ENCOUNTER 2023-11-30 13:49 | Outpatient (REF) | payer OTHER, SELFPAY ==
[2023-11-30 16:57] LABS: Alanine Aminotransferase 24 U/L (0-31); Alkaline Phosphatase 91 U/L (39-117); Aspartate Amino Transferase 23 U/L (5-31); Bilirubin Direct 0.2 mg/dL (0.0-0.5); Bilirubin Total 0.4 mg/dL (0.0-1.0)
[2023-12-01 08:17] LABS: HIV AB/AG Nonreactive (Nonreactive); HIV Num 1 0.04 S/CO (0.00-0.99); ~HepC Num1 0.08 S/CO (0.00-0.79); ~Hepatitis C Antibody Nonreactive (Nonreactive)
== END 2023-11-30 13:50 | disposition home or self-care (01) ==
LOC: HO.HHCL 13:49
PROVIDERS: Visit Provider Family Medicine
DX: Z11.4 Encounter for screening for human immunodeficiency virus [HIV] (principal); F11.20 Opioid dependence, uncomplicated
CPT/HCPCS: 36415; 80076; 86803; 87389

== ENCOUNTER 2023-12-25 16:27 | Outpatient (AMB) | payer OTHER, SELFPAY ==
--- NOTE | 2023-12-25 16:28 | A.OFFPC_ITS ---
Vital Signs 12/25/23 16:30 Height 5 ft Weight 145 lb BMI 28.3 BP 110/70 Blood Pressure Location Lt brachial Position Sitting Intake Visit Reasons: PE Intake Note: Patient here for a physical exam Ham Clerk Required: No Accompanied by: Self / Same As Patient Allergies ibuprofen [From Motrin] Allergy (Mild, Verified 12/25/23 16:55) Gastrointestinal Upset acetaminophen [From Vicodin] Allergy (Unknown, Verified 12/25/23 16:55) Gastrointestinal Upset hydrocodone [From Vicodin] Allergy (Unknown, Verified 12/25/23 16:55) Gastrointestinal Upset Medication List - Last Reconciled 12/25/23 by Linh Partida MD adalimumab (Humira(CF) Pen) 40 mg subcut VIEIRA@0900 adapalene 0.3% 1 appl topical BEDTIME betamethasone dipropionate 0.05% 1 appl topical BID PRN buprenorphine-naloxone 8-2 mg (Suboxone) 1 film sublingual TID bupropion HCl (Wellbutrin SR) 100 mg PO DAILY cholecalciferol (vitamin D3) 25 mcg PO DAILY clindamycin phosphate 1% 1 appl topical BID clotrimazole-betamethasone 1-0.05 % 1 appl topical BID 2 weeks Tobacco use date assessed: 12/25/23 Dental Screening Dental Screen Date: 12/25/23 Did you have a dental visit in the last 12 months?: No Did you have a dental problem in the last 6 months where you did not have access to dental care?: No Was dental information given to patient?: Patient has dentist HPI HPI Comments History of Present Illness Details This is a 43-year-old female with moderate major depression and bipolar disorder that comes for her physical exam. She does follows with counseling and psychiatry and he is on medication. Last mammogram was 2022. Last Pap smear was 2021. No family history of colon cancer and no abdominal complaints. Will prefer to do Cologuard rather than colonoscopy. No chest pain or shortness of breath. [facility] Medical History (Updated 12/25/23 @ 17:21 by Linh Partida MD) Diarrhea Periorbital cellulitis of left eye Hx of hearing loss Hx of psoriasis Hx of bipolar disorder History of exposure to HIV Hx of anxiety disorder History of depression Surgical History Hx laparoscopic cholecystectomy (03/21/23) History of tubal ligation Family History Father Depression Mother HTN (hypertension) Sister No problems noted. Sister No problems noted. Son No problems noted. Son No problems noted. Daughter No problems noted. 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 1. Little interest or pleasure in doing things: nearly every day 2. Feeling down, depressed, or hopeless: nearly every day 3. Trouble falling or staying asleep, or sleeping too much: nearly every day 4. Feeling tired or having little energy: nearly every day 5. Poor appetite or overeating: not at all 6. Feeling bad about yourself - or that you are a failure or have let yourself or your family down: not at all 7. Trouble concentrating on things, such as reading the newspaper or watching television: nearly every day 8. Moving or speaking so slowly that other people could have noticed. Or the opposite - being so fidgety or restless that you have been moving around a lot more than usual: nearly every day 9. Thoughts that you would be better off or of hurting yourself in some way: not at all Total score: 18 Depression Screening Interpretation: Positive (no suicidal thoughts) Depression Screening Follow-up: Existing condition, In treatment and Community Mental Health Worker F/U Depression Screening Done: Yes 08934 - PHQ-9 Billing: Yes Source: Developed by Drs. Migel Saldivar, Stefani Larson, Elian Townsend and colleagues, with an educational juan david from [employer]. Thrive Questionnaire Date Thrive assessed: 12/25/23 I am a: Patient What is your living situation today?: I have a steady place to live Within the past 12 months, did the food you bought not last and you didn't have the money to get more?: Never true Within the past 12 months, did you worry whether your food would run out before you got money to buy more?: Never true Do you have trouble paying for medicines?: No Do you have trouble getting transportation to medical appointments?: No Do you have trouble paying your heating and electricity bill?: No Do you have trouble taking care of your child, family member or friend?: No Do you have trouble with day-to-day activities such as bathing, preparing meals, shopping, managing finances, etc.?: No Are you currently unemployed and looking for a job?: No Are you interested in more education?: No Please select the resources that you would like help with: None Currently or been in a relationship where the following occur: no concerns reported THRIVE Score: 0 AUDIT C Alcohol Use Questionnaire (AUDIT-C) 1. How often do you have a drink containing alcohol?: Never Total Score: 0 RANCHO-7 AMB Questionnaire RANCHO-7 Date RANCHO - 7 assessed: 12/25/23 Feeling nervous, anxious, or on edge: 3 = Nearly every day Not being able to stop or control worryin = Nearly every day Worrying too much about different things: 3 = Nearly every day Trouble relaxin = Several days Being so restless that it is hard to sit still: 0 = Not at all Becoming easily annoyed or irritable: 0 = Not at all Feeling afraid as if something awful might happen: 3 = Nearly every day Total RANCHO-7 score (0-4 normal; 5-9 mild; 10-14 moderate; 15-21 severe): 13 Source: Developed by Drs. Migel Saldivar, Stefani Larson, Elian Townsend and colleagues, with an educational juan david from [employer]. RANCHO-7 Assessment Billing RANCHO-7 Assessment Tool: RANCHO-7 Assessment 77910 Review of Systems Const All systems reviewed & are unremarkable except as noted in HPI and below Eyes Reports no additional complaints, Denies change in vision and Denies other visual disturbances Card Denies chest pain at rest, Denies chest pain with activity, Denies edema, Denies irregular heart rhythm, Denies claudication, Denies dyspnea, Denies dyspnea on exertion, Denies orthopnea, Denies paroxysmal nocturnal dyspnea and Denies slow heart rate Resp Denies cough, Denies dyspnea and Denies dyspnea on exertion GI Denies abdominal pain, Denies change in bowel habits, Denies excessive flatus, Denies nausea and Denies vomiting Denies urinary incontinence, Denies urinary hesitancy and Denies urinary urgency Musc Denies abnormal gait, Denies atrophy, Denies deformity and Denies limited range of motion Skin/Breast Denies bleeding lesions, Denies changing lesions and Denies rash Neuro Denies abnormal gait, Denies behavioral changes, Denies confusion and Denies lack of coordination Psych Denies behavioral changes and Denies confusion Physical exam (Primary Care) Vital Signs: Last Vital Signs BP 110/70 12/25/23 16:30 BMI result Body Mass Index 28.3 Tobacco/Smoking Status: Tobacco use Status Tobacco use date assessed 12/25/23 12/25/23 16:37 Patient Tobacco Use Status Current everyday Tobacco 12/25/23 16:37 Tobacco use type Cigarette 12/25/23 16:37 e-Cigarette/Vaping Use Currently Using 12/25/23 16:37 PHQ-9: PHQ-9 Score PHQ-9: Total score 18 12/25/23 16:37 Depression Screening Interpretation: Positive (no suicidal thoughts) Depression Screening Follow-up: Existing condition, In treatment and Community Mental Health Worker F/U Thrive Assessment: Date of Thrive Assessment Date Thrive assessed 12/25/23 12/25/23 16:37 Currently or been in a relationship where the following occur: no concerns reported Const General: No confusion Orientation/consciousness: patient oriented x3 and No confusion HENMT Head: Yes normal to inspection, Yes normocephalic and Yes atraumatic Ears: external ears normal Eyes General: appearance normal, both eyes and all related structures Eyelids: Yes eyelids normal Conjunctivae: conjunctivae normal Neck Neck: Yes normal visual inspection and Yes supple Resp Effort & Inspection: normal respiratory effort Auscultation: clear to auscultation bilaterally Cardio Jugular venous distension: no JVD Rate: regular rate Rhythm: regular rhythm Heart sounds: S1 normal heart sound present and S2 normal heart sound present GI Inspection: Yes normal to inspection Palpation (GI): Soft to palpation and nontender Auscultation: normal bowel sounds Skin General skin exam: no rashes or lesions noted Neuro General: patient oriented x3, no focal motor deficits and No confusion Extrem General: Yes full ROM Psych Appearance: grossly normal Assessment and Plan Assessment & Plan (1) Physical exam: Code(s): Z00.00 - Encounter for general adult medical examination without abnormal findings Plan: Repeat in a year. (2) Moderate major depression: Code(s): F32.1 - Major depressive disorder, single episode, moderate Plan: Continue bupropion. Follow-up with Behavioral Health. (3) Bipolar 1 disorder: Code(s): F31.9 - Bipolar disorder, unspecified Plan: Follow-up with Behavioral Health. Orders: Orders Comprehensive Reading. Panel Fast Today Z00.00 - Encounter for general adult medical examination without abnormal findings Vitamin D 25-OH Total Today E55.9 - Vitamin D deficiency, unspecified Lipid Panel Today E78.5 - Hyperlipidemia, unspecified, Z00.00 - Encounter for general adult medical examination without abnormal findings Referrals Cologuard Test Z12.11 - Encounter for screening for malignant neoplasm of colon, Z12.12 - Encounter for screening for malignant neoplasm of rectum Medications: Changed From cholecalciferol (vitamin D3) 25 mcg PO DAILY To cholecalciferol (vitamin D3) 25 mcg PO DAILY 90 days 90 tabs 1RF Coding Level of Care Code Est Pt Prev Care 40-64y(95420) Diagnoses Physical exam Z00.00 Moderate major depression F32.1 Bipolar 1 disorder F31.9 Additional Codes ARNCHO-7 Assessment Billing - RANCHO-7 Assessment Tool: RANCHO-7 Assessment 76235 ([id number]) Time Spent (min) 33
[2023-12-25 16:30] VITALS: BP 110/70; BMI 28.3
== END 2023-12-25 17:09 | disposition home or self-care (01) ==
PROVIDERS: PCP Nurse Practitioner Family; Visit Provider Internal Medicine
DX: Z00.00 Encounter for general adult medical examination without abnormal findings (principal); F32.1 Major depressive disorder, single episode, moderate; F31.9 Bipolar disorder, unspecified
CPT/HCPCS: 96127; 99396

== ENCOUNTER 2024-01-03 12:08 | Outpatient (AMB) | payer OTHER, SELFPAY ==
--- NOTE | 2024-01-03 12:16 | MHC.OFFWIV ---
Intake Vital Signs 01/03/24 12:24 Height 5 ft Weight 143 lb BMI 27.9 BP 120/72 Blood Pressure Location Rt brachial Position Sitting Pulse 97 Pulse Source Pulse Oximeter Pulse Oximetry (%) 98 Oxygen Delivery Method Room Air Intake Visit Reasons: EP UTI Intake Note: Pt is here c/o frequent urination. Pt states she has been feeling like this for three months. Pt states she was seen at an urgent care but it is back. Pt states she has finished two doses of antibiotics. Patient Tobacco Use Status: Current everyday Tobacco user Allergies ibuprofen [From Motrin] Allergy (Mild, Verified 01/03/24 12:23) Gastrointestinal Upset acetaminophen [From Vicodin] Allergy (Unknown, Verified 01/03/24 12:23) Gastrointestinal Upset hydrocodone [From Vicodin] Allergy (Unknown, Verified 01/03/24 12:23) Gastrointestinal Upset Do you need a note to return to daycare/school/sports/work: Yes HPI HPI Comments History of Present Illness Details Pt presents to office wirh recurrent UTI She said in September she had UTI symptoms which improved with cranberry pills OTC. No antibiotic at this time She has had persistent lower abdominal cramping in October In november her systems worseed and was seen at [facility] and diagnosed with UTI and BV and given pills for both She said she finished scripts completely and felt slight better She contributed her recurrent lower abdominal cramping to her ovarian cyst hx She had PCP visit Monday and will obtain baseline routine labs today States last night + onset of UTI symptoms + dysuria, frequency and urgency + lower abdominal cramping with intermittent sharp pain + chills No fever or back pain No urine incontinence or hematuria + vaginal discarge which may be baseline but hx of BV in past [facility] Medical History Diarrhea Periorbital cellulitis of left eye Hx of hearing loss Hx of psoriasis Hx of bipolar disorder History of exposure to HIV Hx of anxiety disorder History of depression Surgical History Hx laparoscopic cholecystectomy (03/21/23) History of tubal ligation Family History (Updated 12/25/23 @ 16:59 by Linh Partida MD) Father Depression Mother HTN (hypertension) Sister No problems noted. Sister No problems noted. Son No problems noted. Son No problems noted. Daughter No problems noted. 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 Sexual orientation: Straight/Heterosexual Gender identity: Female Cognitive needs: No Hearing needs: Yes (hearing aide) Vision needs: Yes (glasses) Female Reproductive History Menstrual Age of Menarche: 11 Review of Systems Const Reports chills, Denies fatigue and Denies fever(s) Eyes Denies blurry vision ENT Denies sore throat Card Denies chest pain and Denies dyspnea Resp Denies cough and Denies dyspnea GI Reports abdominal pain, Denies constipation, Denies diarrhea, Denies nausea and Denies vomiting Denies hematuria, Reports dysuria, Denies urinary incontinence, Reports urinary hesitancy, Reports urinary urgency, Reports vaginal discharge and Denies vaginal dryness Musc Denies back pain Endo Denies fatigue Physical Exam Vital Signs: Last Vital Signs Pulse 97 01/03/24 12:24 BP 120/72 01/03/24 12:24 Pulse Ox 98 01/03/24 12:24 Oxygen Delivery Method Room Air 01/03/24 12:24 BMI result Body Mass Index 27.9 General: Non-toxic, NAD. Speaking full sentences. Skin: Warm dry throughout Eye: EOMI Respiratory: CTA bilaterally. No wheezes, rales or rhonchi Cardiac: RRR. No murmur Abdominal: No CVAT. BS present x 4. No rebound or guarding. Minimal suprapubc tenderness but no specific tenderness near palpation of ovaries. MSK: Full ROM extremities. Neurology: A/O. No aphasia or facial droop. Gait without abnormality Psych: Good mood and affect Results AMB Urinalysis, Automated UA Leukoctes 500 Deanne/uL Last Edit by America Eason CMA on 01/03/24 12:32 UA Nitrite Positive Last Edit by America Eason CMA on 01/03/24 12:32 UA Urobilinogen 3 mg/dL Last Edit by America Eason, REGINA on 01/03/24 12:32 UA Protein 1 mg/dL Last Edit by America Eason, REGINA on 01/03/24 12:32 UA pH 5.0 Last Edit by America Eason, REGINA on 01/03/24 12:32 UA Blood 80 Tyler/uL Last Edit by America Eason, REGINA on 01/03/24 12:32 UA Specific [place] 1.025 Last Edit by America Eason, REGINA on 01/03/24 12:32 UA Ketone Positive Last Edit by America Eason, REGINA on 01/03/24 12:32 UA Bilirubin 3 mg/dL Last Edit by America Eason, REGINA on 01/03/24 12:32 UA Glucose 2 mg/dL Last Edit by America Eason, REGINA on 01/03/24 12:32 AMB Test Urine AMB Test Urine Negative Last Edit [facility] on 01/03/24 12:57 Results Reviewed Results Reviewed: Laboratory Last Values Urine pH (Auto) 5.0 01/03/24 12:27 Specific [place] (Auto) 1.025 01/03/24 12:27 Urine Protein (Auto) 1 mg/dL 01/03/24 12:27 Glucose (UA)(Auto) 2 mg/dL 01/03/24 12:27 Urine Ketones (Auto) Positive 01/03/24 12:27 Urine Blood (Auto) 80 [place]/uL 01/03/24 12:27 Urine Nitrite (Auto) Positive 01/03/24 12:27 Urine Bilirubin (Auto) 3 mg/dL 01/03/24 12:27 Urine Urobilinogen (Auto) 3 mg/dL 01/03/24 12:27 Leukocyte Esterase (Auto) 500 Deanne/uL 01/03/24 12:27 Tst Clinic Negative 01/03/24 12:56 Assessment & Plan Assessment & Plan (1) Urinary tract infection: Code(s): N39.0 - Urinary tract infection, site not specified Qualifiers: Hematuria presence: with hematuria Urinary tract infection type: acute cystitis Qualified Code(s): N30.01 - Acute cystitis with hematuria Plan: Patient seen and evaluated. No acute abdomen on examination She has intermittent cramping x months and no persistent sharp pain getting worse, low suspicion for ovarian torsion at this time U/A: + leuks, nitrates, urolobili, protein, blood, ketones and glucose Urine culture sent Uriine : negative Keflex to pharmacy Patient gave verbal understanding and had no additional questions or concerns at time of discharge All questions answered (2) Glucosuria: Code(s): R81 - Glycosuria Plan: She denies hx of diabetes States all she had today was green tea earlier; nothing to eat POC glucose: 106 She saw PCP Monday and will get all of her routine lab work completed today (3) Vaginal discharge: Code(s): N89.8 - Other specified noninflammatory disorders of vagina Plan: Pt asked for bv/STD testing for vaginal d/c complaint Will ordre BV, gonorrhea/chalmydia testing Orders: Orders AMB Urinalysis Automated Today R35.0 - Frequency of micturition CT NG by PCR Today N89.8 - Other specified noninflammatory disorders of vagina Urine Culture Today N39.0 - Urinary tract infection, site not specified Bacterial Vaginosis Panel Today N89.8 - Other specified noninflammatory disorders of vagina AMB HCG Urine Test Today Z32.02 - Encounter for test, result negative Medications: New cephalexin 500 mg PO Q12H 14 caps 0RF Coding Level of Care Code Est Pt Level 3 (25731) Diagnoses Acute cystitis with hematuria N30.01 Hematuria presence: with hematuria Urinary tract infection type: acute cystitis Glucosuria R81 Vaginal discharge N89.8
[2024-01-03 12:24] VITALS: BP 120/72; PULSE 97; O2SAT 98; BMI 27.9
== END 2024-01-03 13:13 | disposition home or self-care (01) ==
PROVIDERS: PCP Nurse Practitioner Family; Visit Provider Physician Assistant
DX: N30.01 Acute cystitis with hematuria (principal); R81 Glycosuria; N89.8 Other specified noninflammatory disorders of vagina; R35.0 Frequency of micturition; Z32.02 Encounter for pregnancy test, result negative
CPT/HCPCS: 81003; 81025; 99213

== ENCOUNTER 2024-01-03 12:56 | Outpatient (REF) | payer OTHER, SELFPAY ==
[2024-01-03 16:29] LABS: Alanine Aminotransferase 40 U/L (0-31); Albumin Level 4.3 g/dL (3.5-5.0); Alkaline Phosphatase 91 U/L (39-117); Anion Gap 8 (12-20); Aspartate Amino Transferase 34 U/L (5-31); Bilirubin Total 0.7 mg/dL (0.0-1.0); Blood Urea Nitrogen 6 mg/dL (9-16); Carbon Dioxide 27 mmol/L (22-29); Chloride 106 mmol/L (96-108); Cholesterol 195 mg/dL (<200); Estimated Glomerular Filt Rate > 60; Glucose Fasting 93 mg/dL (60-99); HDL Cholesterol 69 mg/dL (>40); LDL Cholesterol Calculated 114 mg/dL (<100); Potassium 4.1 mmol/L (3.3-5.1); Sodium 137 mmol/L (135-145); Total Protein 7.3 g/dL (6.5-8.0); Triglycerides 61 mg/dL (<150)
[2024-01-03 18:24] LABS: CT PCR NOT DETECTED (Not Detect.); NG PCR NOT DETECTED (Not Detect.)
[2024-01-04 11:10] LABS: BV Int Neg Control Negative (Negative); BV Int Pos Control Positive (Positive)
== END 2024-01-03 12:57 | disposition home or self-care (01) ==
LOC: HO.HMGCLDS 12:56
PROVIDERS: Physician Assistant; PCP Internal Medicine; Visit Provider Nurse Practitioner Family
DX: Z00.00 Encounter for general adult medical examination without abnormal findings (principal); E78.5 Hyperlipidemia, unspecified; E55.9 Vitamin D deficiency, unspecified; N39.0 Urinary tract infection, site not specified; N89.8 Other specified noninflammatory disorders of vagina; R30.0 Dysuria; R35.0 Frequency of micturition
CPT/HCPCS: 0353U; 36415; 80053; 80061; 82306; 87086; 87480; 87510; 87660

== ENCOUNTER 2024-01-04 17:12 | Outpatient (REF) | payer OTHER, SELFPAY | END 2024-01-04 17:13 | disposition home or self-care (01) | LOC: HO.LAB 17:12 | PROVIDERS: Visit Provider Physician Assistant | DX: Z13.89 Encounter for screening for other disorder (principal) ==

== ENCOUNTER 2024-01-07 17:26 | Emergency (ER) | payer OTHER, SELFPAY ==
--- NOTE | ~2024-01-07 | CT_ITS ---
EXAMINATION: CT ABDOMEN AND PELVIS WITH CONTRAST CLINICAL INFORMATION: RLQ, right pelvic pain rule out appendicitis COMPARISON: None available. TECHNIQUE: Multidetector volumetric images were obtained from the superior aspect of the liver through the pubic symphysis following administration 85 mL of Omnipaque 350 intravenous contrast. Sagittal and coronal reformatted images were obtained on the technologist's workstation. Oral contrast: No This CT examination was performed using dose optimization techniques as appropriate, variously including the following: *Automated exposure control *Adjustment of mA and/or kV according to patient size (this includes techniques or standardized protocols for targeted exams where dose is matched to indication/reason for exam; i.e. extremities or head) *Use of iterative reconstruction technique DLP: 495 mGy-cm FINDINGS: LUNG BASES: The visualized lung bases are unremarkable. LIVER, GALLBLADDER, AND BILIARY TREE: The liver is normal in size, shape, and attenuation. No focal hepatic lesion or biliary ductal dilatation is present. Status post cholecystectomy PANCREAS: Unremarkable. SPLEEN: Unremarkable. ADRENAL GLANDS: Unremarkable. KIDNEYS AND URETERS: The kidneys are normal in size, shape, and attenuation. No hydronephrosis, hydroureter, or calculi seen. No perinephric stranding. BLADDER: Unremarkable. GASTROINTESTINAL TRACT: The small and large bowel are unremarkable. The appendix is unremarkable. ABDOMINAL WALL: No significant hernia is appreciated. LYMPH NODES: Normal. VASCULAR: Unremarkable. PELVIC VISCERA: Uterus is retroverted. No adnexal abnormality. Dominant follicle/cyst in the right adnexa measuring 1.9 cm. No follow-up imaging recommended. OSSEOUS STRUCTURES: Unremarkable. CT/CT abdomen pelvis w IV con IMPRESSION: 1. No acute abnormality CT scan abdomen pelvis. The appendix is normal. No acute change of the bowel. 2. Status post cholecystectomy. Fleischner guidelines were followed.
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
[2024-01-07 17:31] VITALS: BP 149/68; PULSE 103; RESP 16; TEMP 36.6; O2SAT 98; BMI 27.9
[2024-01-07 18:21] LABS: MANUAL DIFF FLAG NO
[2024-01-07 18:24] LABS: Appearance Urine Clear; Color Urine Yellow; Glucose Urine UA Negative (Negative); Leukocyte Esterase Urine Negative (Negative); Nitrite Urine Negative (Negative); PH 5.5 (5.0-9.0); Specific Gravity - Urine 1.025 (1.005-1.025); Urine Blood Negative (Negative); Urine Ketones Trace mg/dL (Negative); Urine Protein Negative (Neg-Trace)
[2024-01-07 18:26] LABS: UPreg QC Valid YES; Urine Pregnancy NEGATIVE (NEGATIVE)
[2024-01-07 18:28] LABS: Basophils Absolute Auto 0.1 X10*3/uL (0.0-0.2); Basophils Percent Auto 0.6 % (0-2); Eosinophils Absolute Auto 0.1 X10*3/uL (0.0-0.4); Eosinophils Percent Auto 1.2 % (0-4); Hematocrit 38.8 % (37.0-47.0); Hemoglobin 12.8 g/dl (12.0-16.0); Imm Gran Abs Auto 0.06 X10*3/uL (0.00-0.03); Imm Gran Pct Auto 0.6 % (0.0-0.4); Lymphocytes Absolute Auto 4.3 X10*3/uL (1.2-4.9); Lymphocytes Percent Auto 40.5 % (20-40); Mean Corpuscular Hemoglobin 31.6 pg (27.0-33.0); Mean Corpuscular Volume 95.8 fL (80.0-98.0); Mean Platelet Volume 11.1 fL (9.4-12.3); Monocytes Absolute Auto 0.5 X10*3/uL (0.1-1.2); Monocytes Percent Auto 4.3 % (2-11); Neutrophils Absolute Auto 5.6 x10*3/uL (2.0-8.3); Neutrophils Percent Auto 52.8 % (45-73); Platelet Count 224 X10*3/uL (160-400); Red Blood Count 4.05 X10*6/uL (4.20-5.50); White Blood Count 10.6 X10*3/uL (4.8-10.8)
[2024-01-07 18:47] LABS: Alanine Aminotransferase 24 U/L (0-31); Albumin Level 3.9 g/dL (3.5-5.0); Alkaline Phosphatase 80 U/L (39-117); Anion Gap 12 (12-20); Aspartate Amino Transferase 18 U/L (5-31); Bilirubin Direct < 0.2 mg/dL (0.0-0.5); Bilirubin Total 0.2 mg/dL (0.0-1.0); Blood Urea Nitrogen 12 mg/dL (9-16); Calcium 8.9 mg/dL (8.4-10.2); Carbon Dioxide 24 mmol/L (22-29); Chloride 105 mmol/L (96-108); Creatinine Clr Calc Pharmacy 84.1; Estimated Glomerular Filt Rate > 60; Glucose Random 116 mg/dL (60-115); Potassium 3.9 mmol/L (3.3-5.1); Sodium 137 mmol/L (135-145); Total Protein 6.8 g/dL (6.5-8.0)
[2024-01-07] MEDS: HYDROmorphone HCl 1 MG/ML SYRINGE IVPUSH (22:25)
[2024-01-07] MEDS: 0.9 % Sodium Chloride 1,000 ML 999 ML IV (22:25)
[2024-01-07] MEDS: diphenhydrAMINE HCL 50 MG/ML VIAL IVPUSH (22:25)
[2024-01-07 22:39] LABS: Lipase 23 U/L (8-78)
--- NOTE | 2024-01-07 22:44 | PC.NURSE ---
pt from home reporting one week of abdominal pain, pt reports being seen at urgent care where pt was given antibiotics for an UTI. pt reports increasing abdominal pain since getting prescribed antibiotics. 22G placed in right AC, pt medicated per dec, iv fluid bolus administered.
--- NOTE | 2024-01-07 22:46 | PC.NURSE ---
pt to CT at this time.
[2024-01-07] MEDS: iohexoL 350 MG/ML 100 ML INFUS..BTL 85 ML IV (22:52)
[2024-01-07 23:13] VITALS: BP 116/70; PULSE 81; RESP 16; O2SAT 95
--- NOTE | 2024-01-07 23:57 | PC.NURSE ---
at bedside doing pelvic exam, This RN chaperoned assessment. pt tolerated well.
[2024-01-08] MEDS: Doxycycline Monohydrate 100 MG CAPSULE PO (00:21)
[2024-01-08] MEDS: metroNIDAZOLE 500 MG TABLET PO (00:21)
[2024-01-08] MEDS: cefTRIAXone sodium 500 MG, Lidocaine HCl 1 % MPF 1 ML IM (00:21)
--- NOTE | 2024-01-08 00:25 | PC.NURSE ---
pt medicated on discharge, pt tolerated medications well with water.
[2024-01-08 00:26] VITALS: BP 136/77; PULSE 20; RESP 18; TEMP 37; O2SAT 99
== END 2024-01-08 00:28 | disposition home or self-care (01) ==
PROVIDERS: Nurse Practitioner Family; Emergency Provider Emergency Medicine Emergency Medical Services; PCP Internal Medicine
DX: N73.9 Female pelvic inflammatory disease, unspecified (principal); N83.01 Follicular cyst of right ovary; Z79.899 Other long term (current) drug therapy
CPT/HCPCS: 36415; 74177; 80048; 80076; 81003; 81025; 83690; 85025; 96361; 96372; 96374; 96375; 99284; J0696; J1170; J1200; Q9967

== ENCOUNTER 2024-01-16 10:11 | Outpatient (AMB) | payer OTHER, SELFPAY ==
--- NOTE | 2024-01-16 10:51 | MHC.OFFVIS ---
Intake Vital Signs 01/16/24 10:52 Height 5 ft Weight 144 lb BMI 28.1 BP 128/66 Blood Pressure Location Rt brachial Position Sitting Intake Visit Reasons: Er follow up Intake Note: Pt presents to the office today for an ER follow up on 01/07/24. Pt is being seen today for PID. Allergies hydrocodone [From Vicodin] Allergy (Unknown, Verified 01/16/24 10:52) Gastrointestinal Upset Medication List - Last Reconciled 01/16/24 by Caitlin Doherty CNM acetaminophen (Tylenol Extra Strength) 1,000 mg (2 x 500 mg) PO Q6H PRN adalimumab (Humira(CF) Pen) 40 mg subcut VIEIRA@0900 adapalene 0.3% 1 appl topical BEDTIME betamethasone dipropionate 0.05% 1 appl topical BID PRN buprenorphine-naloxone 8-2 mg (Suboxone) 1 film sublingual TID bupropion HCl (Wellbutrin SR) 100 mg PO DAILY cholecalciferol (vitamin D3) 25 mcg PO DAILY 90 days clindamycin phosphate 1% 1 appl topical BID clotrimazole-betamethasone 1-0.05 % 1 appl topical BID 2 weeks ibuprofen 400 mg PO TID PRN metronidazole 500 mg PO Q12H 14 days Is last menstrual period known: Yes (12/21/23) Last menstrual period: 12/21/23 HPI Er follow up HPI Details Patient is here as follow-up from the emergency room where she was seen on January 06 for pelvic pain and she was diagnosed with PID please see the very detailed notes from the [place] emergency room where she was evaluated she also had been previously evaluated at the [facility] and was told she did not have a UTI which she thought she might have had as she gets them recurrently often after she has sex she was having sex with a particular partner about once a month and always a couple of days later she would end up with pain. She was treated for UTI earlier in the year. She has had her tubes tied so pregnancies not a concern. She is concerned about cysts that were found as well and she often has them. She is still on the metronidazole but has finished the doxy Cyclen. The plan per the note was to give her 14 days of both however the prescription ended up only being for 4 days of the doxy Cyclen see below. She is feeling better she is due for her periods soon. Of note she also has psoriasis she is on Humira weekly and that has really improved her psoriasis she sometimes gets itching in her groin that has not very bad in she reminded me that I gave her a cream for at the last time I saw her in October. She says I referred her for pelvic floor therapy but she has not gotten a call and she wondered if the referral went through. notes form er:- _ Prescriptions: New metronidazole 500 mg tablet 500 mg PO Q12H 14 Days Qty: 28 0RF acetaminophen [Tylenol Extra Strength] 500 mg tablet 1,000 mg PO Q6H PRN (Reason: fever or pain) Qty: 20 0RF ibuprofen 400 mg tablet 400 mg PO TID PRN (Reason: fever or pain) Qty: 30 0RF doxycycline hyclate 100 mg tablet 100 mg PO Q12H 4 Days Qty: 8 0RF Patient is here at the [facility] OBGYN office as follow-up from the emergency room where she was seen on January 06 and treated for PID because of findings it is cervical motion tenderness as well as the discharge. See the ER note for all of the details. Patient says she has finished the doxy Cyclen though the note indicated she was to be taking it for 14 days at a appears it may have been given for fewer in the final dispensing. [facility] Medical History Diarrhea Periorbital cellulitis of left eye Hx of hearing loss Hx of psoriasis Hx of bipolar disorder History of exposure to HIV Hx of anxiety disorder History of depression Surgical History Hx laparoscopic cholecystectomy (03/21/23) History of tubal ligation Family History Father Depression Mother HTN (hypertension) Sister No problems noted. Sister No problems noted. Son No problems noted. Son No problems noted. Daughter No problems noted. 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 Sexual orientation: Straight/Heterosexual Gender identity: Female Cognitive needs: No Hearing needs: Yes (hearing aide) Vision needs: Yes (glasses) Female Reproductive History Menstrual Age of Menarche: 9 Duration of menses: 3-5 days Date of last menstrual period: 12/21/23 control method: permanent sterilization Permanent Sterilization: BTL Total pregnancies: 5 Full term: 3 Number of Living Children: 3 Date of last pap smear: 01/18/22 History of abnormal pap smear: No Physical Exam Vital Signs: Last Vital Signs BP 128/66 01/16/24 10:52 BMI result Body Mass Index 28.1 Other: Details of the exam-- External vulva within normal limits some dryness noted at the creases in her groin consistent more with eczema or in her case psoriasis. Vagina pink and moist healthy normal appearing discharge cervix challenging to visualize but pink healthy appearing shiny with normal appearing white mucus. Uterus is retroverted and is only very slightly tender at the corpus of the uterus as almost all retroverted uteri are. Cervical motion tenderness is absent there has no tenderness at her bladder either adnexa are nontender patient barely able to recreate a Kegel. Will resend the referral physical therapy. External Female Exam: normal external appearance Speculum Exam - Vagina: normal appearance of the vagina and normal vaginal discharge Speculum Exam - Cervix: normal appearance of the cervix Bimanual exam- vagina & uterus: normal bimanual exam, uterine size normal, consistency normal, uterine mobility normal, uterine shape normal and non-tender Bimanual Exam- Adnexa, other: normal adnexae, no masses and No adnexal tenderness Results Reviewed Results Reviewed: Name: Floridalma Larry Age/Sex: 43/F : 1980 Unit#: [id number] Attend Dr: Mandi Crenshaw Re01/03/24 Status: DEP REF Location: [facility] Disch: SPEC : [id number] VITALY: 01/03/24-1208 STATUS: COMP REQ : [id number] RECD: 01/03/24-1631 SUBM : Christina Grayson PA-C COMP: 01/03/24 ENTERED: 01/03/[address]: ORDERED: CT NG by PCR QUERIES: CT NG Source: Vaginal Test Result Flag Reference CT PCR NOT DETECTED Not Detect. A not detected test result does not exclude the possibility of infection because test results can be affected by improper specimen collection, concurrent antibiotic therapy, or the number of organisms in the specimen which may be below the sensitivity of the test. As with many diagnostic tests, results from the Xpert CT/NG assay should be interpreted in conjunction with other laboratory and clinical data available to the clinician. Xpert CT/NG performance has not been evaluated in patients less than 14 years of age. The assay should not be used for the evaluation of suspected sexual abuse or for other medico-legal indications. Additional testing is recommended in any circumstance when false positive or false negative results could lead to adverse medical, social or psychological consequences. NG PCR NOT DETECTED Not Detect. 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 Re01/03/24 Status: DEP REF Location: [facility] Disch: SPEC : [id number] VITALY: 01/03/24 STATUS: COMP REQ : [id number] RECD: 01/03/[address]: Christina Grayson PA-C COMP: 01/04/24 ENTERED: 01/03/[address] [facility] [address]: ORDERED: BV Panel Test Result Flag Reference Trichomonas DNA Negative Negative Gardnerella DNA Negative Negative Krista DNA Negative Negative Patient: Farrah LarryCTR#: [id number]: 1980Acct:[id number]/Sex: 43 / FADM Date: 01/07/24Loc: HO.EDAttending Dr: Ordering Physician: Jeffrey Chester MD Date of Service: 01/07/24 Procedure(s): CT abdomen pelvis w IV con Accession Number(s): [id number] cc: Linh Collier MD; Jeffrey Chester MD~ EXAMINATION: CT ABDOMEN AND PELVIS WITH CONTRAST CLINICAL INFORMATION: RLQ, right pelvic pain rule out appendicitis COMPARISON: None available. TECHNIQUE: Multidetector volumetric images were obtained from the superior aspect of the liver through the pubic symphysis following administration 85 mL of Omnipaque 350 intravenous contrast. Sagittal and coronal reformatted images were obtained on the technologist's workstation. Oral contrast: No This CT examination was performed using dose optimization techniques as appropriate, variously including the following: *Automated exposure control *Adjustment of mA and/or kV according to patient size (this includes techniques or standardized protocols for targeted exams where dose is matched to indication/reason for exam; i.e. extremities or head) *Use of iterative reconstruction technique DLP: 495 mGy-cm FINDINGS: LUNG BASES: The visualized lung bases are unremarkable. LIVER, GALLBLADDER, AND BILIARY TREE: The liver is normal in size, shape, and attenuation. No focal hepatic lesion or biliary ductal dilatation is present. Status post cholecystectomy PANCREAS: Unremarkable. SPLEEN: Unremarkable. ADRENAL GLANDS: Unremarkable. KIDNEYS AND URETERS: The kidneys are normal in size, shape, and attenuation. No hydronephrosis, hydroureter, or calculi seen. No perinephric stranding. BLADDER: Unremarkable. GASTROINTESTINAL TRACT: The small and large bowel are unremarkable. The appendix is unremarkable. ABDOMINAL WALL: No significant hernia is appreciated. LYMPH NODES: Normal. VASCULAR: Unremarkable. PELVIC VISCERA: Uterus is retroverted. No adnexal abnormality. Dominant follicle/cyst in the right adnexa measuring 1.9 cm. No follow-up imaging recommended. OSSEOUS STRUCTURES: Unremarkable. CT/CT abdomen pelvis w IV con IMPRESSION: 1. No acute abnormality CT scan abdomen pelvis. The appendix is normal. No acute change of the bowel. 2. Status post cholecystectomy. Fleischner guidelines were followed. Dictated By:Chano Logan MDSigned By:<Electronically signed by Chano Logan MD in OV>01/07/24 7121 Assessment & Plan Assessment & Plan (1) Follicular cyst of right ovary: Code(s): N83.01 - Follicular cyst of right ovary (2) Acute pelvic inflammatory disease (PID): Code(s): N73.0 - Acute parametritis and pelvic cellulitis (3) Pelvic floor dysfunction: Comment: pt unable to do a kegel- will refer to pt for more thorough teaching;re- sending referral 01/16/2020 Code(s): M62.89 - Other specified disorders of muscle Plan Extensive discussion about all of the above. She is not tender at this exam so I do not believe finishing out another course of doxy Cyclen is necessary at this time she is going to finish the metronidazole for the complete 14 days. Retesting for GC chlamydia trich Gardnerella and Krista was done the exam is essentially benign on appearance and otherwise today slight tenderness at the corpus of the uterus is consistent with a retroverted uterus and not in need of any treatment. I reviewed her CT scan findings and again reviewed the natural menstrual cycle and how after menses a new follicles starts to ripen until it releases the egg at ovulation and then there has often a cyst that forms after that and can remain tender and symptomatic until what the next menses . Suggested having her monitor her symptoms so she can gain some power over the sensation said what her body goes through every month and that it may make it less frightening.. I re sent the PT referral for her and I re sent the prescription for the betamethasone clotrimazole cream in case she needs it. Her son just had his third baby and her daughter is for the 1st time. Orders: Orders CT NG by PCR Today N73.0 - Acute parametritis and pelvic cellulitis Bacterial Vaginosis Panel Today N73.0 - Acute parametritis and pelvic cellulitis Medications: Refilled clotrimazole-betamethasone 1-0.05 % May apply up to twice a day up to 14 days maximum to external area only. 1 appl topical BID 2 weeks 45 grams 2RF Coding Level of Care Code Est Pt Level 3 (70414) Diagnoses Follicular cyst of right ovary N83.01 Acute pelvic inflammatory disease (PID) N73.0 Pelvic floor dysfunction M62.89
[2024-01-16 10:52] VITALS: BP 128/66; BMI 28.1
== END 2024-01-16 12:41 | disposition home or self-care (01) ==
LOC: HO.HWSM 10:11
PROVIDERS: PCP Internal Medicine; Visit Provider Advanced Practice Midwife
DX: N83.01 Follicular cyst of right ovary (principal); N73.0 Acute parametritis and pelvic cellulitis; M62.89 Other specified disorders of muscle
CPT/HCPCS: 99213

== ENCOUNTER 2024-01-16 10:11 | Outpatient (REF) | payer OTHER, SELFPAY ==
[2024-01-17 11:35] LABS: CT PCR NOT DETECTED (Not Detect.); NG PCR NOT DETECTED (Not Detect.)
[2024-01-17 13:53] LABS: BV Int Neg Control Negative (Negative); BV Int Pos Control Positive (Positive)
== END 2024-01-16 10:12 | disposition home or self-care (01) ==
LOC: HO.LNP 10:11
PROVIDERS: PCP Internal Medicine; Visit Provider Advanced Practice Midwife
DX: N83.01 Follicular cyst of right ovary (principal); N73.0 Acute parametritis and pelvic cellulitis; M62.89 Other specified disorders of muscle; Z20.2 Contact with and (suspected) exposure to infections with a predominantly sexual mode of transmission
CPT/HCPCS: 0353U; 87480; 87510; 87660; 99212

== ENCOUNTER 2024-02-28 14:25 | Outpatient (AMB) | payer OTHER, SELFPAY ==
[2024-02-28 14:28] VITALS: BP 122/74; PULSE 81; O2SAT 98
--- NOTE | 2024-02-28 14:28 | AM.OFFWIN_ITS ---
Intake Vital Signs 3 02/28/24 14:28 Height 5 ft BP 122/74 Blood Pressure Location Rt brachial Position Sitting Pulse 81 Pulse Source Pulse Oximeter Pulse Oximetry (%) 98 Oxygen Delivery Method Room Air Intake Visit Reasons: EP cist on left breast Intake Note: pt is here for cyst on left breast, patient thinks it might be a boil and requesting antibiotics Patient Tobacco Use Status: Current everyday Tobacco user Allergies hydrocodone [From Vicodin] Allergy (Unknown, Verified 02/28/24 14:29) Gastrointestinal Upset Do you need a note to return to daycare/school/sports/work: No HPI HPI Comments 2 History of Present Illness0 Details 43 y/o female patient who presents to [facility] in clinic with c/o left breast infection for few days now. She does get recurrent abscess on that breast with multiple Incisions and drainage by Alteration Workroom Supervisor. Reports yellowish to whitish discharge from breast. Reports pain radiating up to her neck and shoulders. Pain worse with Bra on. She has been putting Warm compress with minimal relief. Denies fevers, chills, nausea or vomiting. [facility] Medical History Diarrhea Periorbital cellulitis of left eye Hx of hearing loss Hx of psoriasis Hx of bipolar disorder History of exposure to HIV Hx of anxiety disorder History of depression Surgical History Hx laparoscopic cholecystectomy (03/21/23) History of tubal ligation Family History Father Depression Mother HTN (hypertension) Sister No problems noted. Sister No problems noted. Son No problems noted. Son No problems noted. Daughter No problems noted. 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 Sexual orientation: Straight/Heterosexual Gender identity: Female Cognitive needs: No Hearing needs: Yes (hearing aide) Vision needs: Yes (glasses) Female Reproductive History Menstrual Age of Menarche: 9 Review of Systems Const All systems reviewed & are unremarkable except as noted in HPI and below Physical Exam Vital Signs: Last Vital Signs Pulse 81 02/28/24 14:28 BP 122/74 02/28/24 14:28 Pulse Ox 98 02/28/24 14:28 Oxygen Delivery Method Room Air 02/28/24 14:28 Const General: no acute distress Orientation/consciousness: patient oriented x3 Chest Breast/axilla inspection: normal inspection of the axillae (both sides. ) and abnormal inspection of the breast (Left breast, redness around nipple region, with white to yellow discharge. ) Breast/axilla palpation: normal palpation of the axillae, no axillary lymphadenopathy and abnormal palpation of the breast (left breast tender to touch, firmness. ) Chest/axillae images: 2 1. Left nipple breast redness, pain/tenderness with touch and yellow to white discharge. Neuro General: patient oriented x3, gait normal and moves all extremities Psych Speech and movement: Normal speech and movement present Assessment & Plan Assessment & Plan (1) Mastitis of left breast unrelated to or : Code(s): N61.0 - Mastitis without abscess Plan: - Warm compress - Ibuprofen for pain relief - Take medicine as prescribed - Advised to f/u with her Alteration Workroom Supervisor if not better, she might need I&D Medications: New 2 dicloxacillin 500 mg PO Q6H 10 days 40 caps 0RF infection breast N61.0 - Mastitis without abscess Discontinued 2 ibuprofen Discontinued Reason: Patient Completed Course 400 mg PO TID PRN 30 tabs 0RF fever or pain Coding Level of Care Code Est Pt Level 3 (44311) Diagnoses Mastitis of left breast unrelated to or N61.0 Time Spent (min) 15
== END 2024-02-28 15:13 | disposition home or self-care (01) ==
PROVIDERS: PCP Internal Medicine; Visit Provider Nurse Practitioner Family
DX: N61.0 Mastitis without abscess (principal)
CPT/HCPCS: 99213

== ENCOUNTER 2024-10-28 11:35 | Outpatient (AMB) | payer OTHER, SELFPAY ==
--- NOTE | 2024-10-28 11:52 | AM.OFFWIN_ITS ---
Intake Vital Signs 10/28/24 12:00 Weight 144 lb BP 130/82 Blood Pressure Location Lt brachial Position Sitting Pulse 104 H Pulse Source Pulse Oximeter Pulse Oximetry (%) 97 Oxygen Delivery Method Room Air Intake Visit Reasons: EP lightheaded, dizziness Patient Tobacco Use Status: Current everyday Tobacco user Allergies hydrocodone [From Vicodin] Allergy (Unknown, Verified 02/28/24 14:29) Gastrointestinal Upset HPI HPI Comments History of Present Illness Details History - The patient is a 44-year-old female pr esenting with dizziness and lightheadedness. - Symptoms commenced 2 days ago, with pr ogressively worsening imbalance during ambulation. - Symptoms improve significantly when ly ing down and closing the eyes. - The patient denies any coughing, nasal congestion, earache, headaches, or general fatigue. - There are no reported incidents of sim ilar dizziness in the patient's past medical history but she does admit to many ear infections in the past. . - The patient has no shortness of breath , chest pain, or radiating pain. Physical Exam General: Cooperative, healthy appearing, comfortable and no acute distress Orientation/consciousness: Patient oriented x3 Limitations: No limitations Head: Normal to inspection Eyes: see below Ears: Hearing grossly normal bilaterally, external ears normal. Bilateral TM's with sliver of purulence in each ear. Nose: Normal external nose present, Normal nares present and No nasal discharge present Eyes: Appearance normal, both eyes and all related structures Neck: Normal visual inspection Respiratory: Normal respiratory effort, able to speak in complete sentences, Actively coughing, no respiratory distress, not tachypneic, no tripod positioning and no use of accessory muscles Skin: No rashes or lesions noted Neuro: see below Extremities: Normal to inspection and Yes no clubbing, cyanosis or edema PFSH Medical History Diarrhea Periorbital cellulitis of left eye Hx of hearing loss Hx of psoriasis Hx of bipolar disorder History of exposure to HIV Hx of anxiety disorder History of depression Surgical History Hx laparoscopic cholecystectomy (03/21/23) History of tubal ligation Family History Father Depression Mother HTN (hypertension) Sister No problems noted. Sister No problems noted. Son No problems noted. Son No problems noted. Daughter No problems noted. 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 Sexual orientation: Straight/Heterosexual Gender identity: Female Cognitive needs: No Hearing needs: Yes (hearing aide) Vision needs: Yes (glasses) Female Reproductive History Menstrual Age of Menarche: 9 Review of Systems Const All systems reviewed & are unremarkable except as noted in HPI and below Physical Exam Const Orientation/consciousness: patient oriented x3 Eyes General: appearance normal, both eyes and all related structures Pupils: Equal, round and reactive pupils present EOM: EOMs intact bilaterally Neuro General: patient oriented x3, gait normal, moves all extremities and CN's II-XI intact bilaterally Cranial nerves: Yes Equal, round and reactive pupils present Cognition (Neuro): normal cognition Motor exam (neuro): 5/5 motor strength present throughout Sensory Exam: Upper extremity sensory exam abnormal (intact bilaterally) and Abnormal lower extremity sensory exam (intact bilaterally) Office Procedures EKG Details: EKG NSR @98BPM, no acute changes [id number], Complete Assessment & Plan Assessment & Plan (1) Otitis media: Code(s): H66.90 - Otitis media, unspecified, unspecified ear Qualifiers: Otitis media type: suppurative Chronicity: acute Laterality: bilateral Recurrence: non-recurrent Spontaneous tympanic membrane rupture: without spontaneous rupture Qualified Code(s): H66.003 - Acute suppurative otitis media without spontaneous rupture of ear drum, bilateral Plan: EKG NSR @98BPM, no acute changes. The patient will be treated for acute otitis media with Amoxicillin, 500 mg taken orally twice daily for seven days. Hydroxyzine, 25 mg, is also prescribed to alleviate vertiginous symptoms, particularly to manage fluid accumulation in the middle ear. The hydroxyzine should be taken as needed, primarily at bedtime due to its sedative effects, with a total dispensation of 14 tablets. If symptomatology persists or worsens, further diagnostic evaluations may be necessary, including laboratory work and imaging, to assess the underlying causes. The patient is advised to monitor symptoms closely and seek further medical attention in the ED, if needed. Patient was informed and verbally consented to the use of an ambient scribe for clinic note documentation during this visit (2) Dizzy spells: Code(s): R42 - Dizziness and giddiness Plan: as above Medications: New amoxicillin 875 mg PO Q12H 14 tabs 0RF hydroxyzine HCl 25 mg PO BEDTIME 14 tabs 0RF Coding Level of Care Code Est Pt Level 4 (03955) Diagnoses Non-recurrent acute suppurative otitis media of both ears without spontaneous rupture of tympanic membranes H66.003 Otitis media type: suppurative Chronicity: acute Laterality: bilateral Recurrence: non-recurrent Spontaneous tympanic membrane rupture: without spontaneous rupture Dizzy spells R42 CPT Codes EKG - CPT: 42089-[id number], Complete ([id number])
[2024-10-28 12:00] VITALS: BP 130/82; PULSE 104; O2SAT 97
== END 2024-10-28 13:11 | disposition home or self-care (01) ==
PROVIDERS: PCP Internal Medicine; Visit Provider Physician Assistant
DX: H66.003 Acute suppurative otitis media without spontaneous rupture of ear drum, bilateral (principal); R42 Dizziness and giddiness

== ENCOUNTER 2024-11-11 11:36 | Outpatient (REF) | payer OTHER, SELFPAY ==
[2024-11-11 13:07] LABS: MANUAL DIFF FLAG NO
[2024-11-11 13:20] LABS: Basophils Absolute Auto 0.1 X10*3/uL (0.0-0.2); Basophils Percent Auto 0.6 % (0-2); Eosinophils Absolute Auto 0.1 X10*3/uL (0.0-0.4); Eosinophils Percent Auto 1.1 % (0-4); Hematocrit 38.5 % (37.0-47.0); Hemoglobin 12.6 g/dl (12.0-16.0); Imm Gran Abs Auto 0.01 X10*3/uL (0.00-0.03); Imm Gran Pct Auto 0.1 % (0.0-0.4); Lymphocytes Absolute Auto 3.8 X10*3/uL (1.2-4.9); Lymphocytes Percent Auto 44.5 % (20-40); Mean Corpuscular HGB Conc 32.7 g/dl (31.0-35.0); Mean Corpuscular Hemoglobin 31.1 pg (27.0-33.0); Mean Corpuscular Volume 95.1 fL (80.0-98.0); Mean Platelet Volume 10.9 fL (9.4-12.3); Monocytes Absolute Auto 0.6 X10*3/uL (0.1-1.2); Monocytes Percent Auto 6.5 % (2-11); Neutrophils Percent Auto 47.2 % (45-73); Platelet Count 267 X10*3/uL (160-400); Red Blood Count 4.05 X10*6/uL (4.20-5.50); Red Cell Distribution Width 12.2 % (11.0-16.0); White Blood Count 8.4 X10*3/uL (4.8-10.8)
[2024-11-11 14:02] LABS: Alanine Aminotransferase 22 U/L (0-31); Albumin Level 4.1 g/dL (3.5-5.0); Alkaline Phosphatase 90 U/L (39-117); Anion Gap 8 (12-20); Aspartate Amino Transferase 24 U/L (5-31); Bilirubin Direct 0.2 mg/dL (0.0-0.5); Bilirubin Total 0.5 mg/dL (0.0-1.0); Blood Urea Nitrogen 8 mg/dL (9-16); Calcium 8.3 mg/dL (8.4-10.2); Carbon Dioxide 28 mmol/L (22-29); Chloride 106 mmol/L (96-108); Cholesterol 189 mg/dL (<200); Estimated Glomerular Filt Rate > 60; Glucose Random 69 mg/dL (60-115); HDL Cholesterol 65 mg/dL (>40); LDL Cholesterol Calculated 116 mg/dL (<100); Potassium 3.5 mmol/L (3.3-5.1); Sodium 138 mmol/L (135-145); Triglycerides 44 mg/dL (<150)
[2024-11-14 10:22] LABS: TS Negative Control Passed; TS Panel A 0; TS Panel B 0; TS Positive Control Passed; TSpotTB Negative (Negative)
== END 2024-11-11 11:37 | disposition home or self-care (01) ==
LOC: HO.HMGCLDS 11:36
PROVIDERS: PCP Internal Medicine; Visit Provider Physician Assistant Medical
DX: L70.0 Acne vulgaris (principal); L73.2 Hidradenitis suppurativa; L40.4 Guttate psoriasis
CPT/HCPCS: 36415; 80048; 80061; 80076; 85025; 86481

== ENCOUNTER 2024-12-26 11:48 | Outpatient (REF) | payer OTHER, SELFPAY ==
[2024-12-26 13:36] LABS: Alanine Aminotransferase 21 U/L (0-31); Albumin Level 4.1 g/dL (3.5-5.0); Alkaline Phosphatase 84 U/L (39-117); Aspartate Amino Transferase 22 U/L (5-31); Bilirubin Direct 0.2 mg/dL (0.0-0.5); Bilirubin Total 0.5 mg/dL (0.0-1.0); Total Protein 7.4 g/dL (6.5-8.0)
--- OUTSIDE RECORDS SUMMARY | 2024-12-26 14:24 | XMS_ITS | Encounter Summary ---
Author Organization [employer] Address [address] [place] [address] Care Team Providers Care Vamp Stitcher Name Role Phone Unavailable Primary Care Provider Unavailabl e Reason for Visit * Reason Onset Date Comments Med Refill 12/19/2024 Encounter Details Date Type Department Care Team ([facility] st Contact Info) Description 12/19/2024 Refill [facility] [address] [place] [address] Stevie Chairez, REGI [address] [place] [address] Uncomplicated opioid dependence (CMS/HCC) Social History Tobacco Use Types Packs/Day Years Used Date Smoking Tobacco: Every Day Cigarettes Depression Answer Date Recorded Patient Health Questionnaire-9 Score 18 03/13/2023 Housing Stability Answer Date Recorded What is your housing situation today? I have faustino orozco 05/16/[address] you li ve. Do you have problems with any of the following? None of the above 05/16/2024 Food Insecurity Answer Date Recorded Within the past 12 months, y ou worried that your food would run out before you got money to buy more: Never True 05/16/2024 Within the past 12 months,th e food you bought just didn't last and you didn't have enough money to get more: Never True Transportation Answer Date Recorded In the past 12 months, has l ack of transportation kept you from medical appts, meetings, work or from getting things needed for daily living? No 05/16/2024 Utilities Answer Date Recorded In the past 12 months, has t he electric, gas, oil or water company threatened to shut off services in your home? No 05/16/2024 Depression Answer Date Recorded Patient Health Questionnaire-2 Score 0 05/16/2024 Internet Access Answer Date Recorded Internet Access Q1 No 07/01/2024 Internet Access Q2 I do not want or need it 11/2023 Comments Unknown Sex and Gender Information Value Date Recorded Sex Assigned at Female 08/29/2022 10:15 AM EDT Legal Sex Female 10:15 AM EDT Gender Identity Female 08/29/2022 10:15 AM EDT Sexual Orientation Straight 08/29/2022 10 :15 AM EDT documented as of this encounter Plan of Treatment Upcoming Encounters Date Type Department Care Team (Late st Contact Info) Description 02/20/2025 1:00 PM EDT Office Visit [facility] [address] [place] [address] Pamela Baumann MD [address] [place] [address] documented as of this encounter Visit Diagnoses Diagnosis Uncomplicated opioid dependence (CMS/HCC) documented in this encounter Additional Health Concerns Assessment Noted Time PHQ-9 Depression Total Score: 18 023 8:25 AM EDT documented as of this encounter
--- OUTSIDE RECORDS SUMMARY | 2024-12-26 14:24 | XMS_ITS | Clinical Summary ---
Author Organization [employer] Address [address] [place] [address] 7 [place] [address] Care Team Providers Care Academic Adviser Name Role Phone Unavailable Primary Care Provider Unavailabl e Allergies No known active allergies Medications * This document contains information received from the source organization and may not represent a complete record from that organization. buPROPion SR (Wellbutrin SR) 100 MG 12 hr tablet Take 100 mg by mouth in the morning. 06/13/20 23 Active Humira Pen 40 MG/0.4ML Pen-injector Kit pen-injector 07/31/20 23 Active adapalene (Differin) 0.3 % gel APPLY TOPICALLY TO THE AFFECTED AREA EVERY NIGHT. START OUT ALTERNATING EVERY OTHER NIGHT WITH TRETINOIN FOR FIRST 2 WEEKS 03/06/20 23 Active betamethasone dipropionate (Diprolene) 0.05 % ointment APPLY TO INFLAMED LESIONS ON THE BUTTOCKS TWICE DAILY FOR 2 WEEKS BREAK FOR 1 WEEK AND REPEAT NEEDED 03/02/20 23 Active Suboxone 8-2 MG SL filmIndications :Uncomplicated opioid dependence (CMS/HCC) Place 3 Film under the tongue Once per day. 84 Film 1 12/19/19 25 2024 Active Suboxone 8-2 MG SL filmIndications :Uncomplicated opioid dependence (CMS/HCC) Place 3 Film under the tongue Once per day. 84 Film 1 10/24/20 24 2024 Discontinued(R eorder (will not trigger notification to Pharmacy)) Active Problems Problem Noted Date Diagnosed Date Psoriasis 11/30/2023 Opioid use disorder 11/30/2023 Mixed anxiety and depressive disorder 03/10/2023 Assessment & Plan (03/13/2023 8:46 AM EDT): Assessment and Plan: Floridalma was engaged with active reflective listening and open-ended questions. Assessed symptoms, risks, and social supports with direct questions. Discussed current symptoms intensity and frequency. Emotions were normalized and validated. She identified exercise as coping mechanisms and protective factor. Provided psychoeducation around Coping skills for depression and anxiety, Behavioral Activation. Discussed OP therapy and Medication Management, she agreed to both referral. Provided education around integrated medicine and the options of follow up BE's as needed. Provided contact information should questions or concerns arise. Plan: Floridalma will continue to engage in effective coping mechanisms that has work for her and will try to implement the one that we discussed. She will be refer to [facility] for Ind. Therapy and [facility] for Med. Management. She agreed to meet with me during her OBAT appts for extra support. Encounters Date Type Department Care Team Description 12/26/2024 11:30 AM EST Clinical Support [facility] [place] [address] Stevie Chairez RN Uncomplicated opioid dependence (CMS/HCC) (Primary Dx) 12/26/2024 Orders Only [facility] [place] [address] Pamela Baumann MD 12/26/2024 Travel 12/19/2024 Refill [facility] [place] [address] Stevie Chairez RN Uncomplicated opioid dependence (CMS/HCC) 10/31/2024 11:00 AM EST Clinical Support [facility] [place] [address] Stevie Chairez RN Opioid type dependence, continuous (CMS/HCC) (Primary Dx) 10/31/2024 Travel 10/24/2024 Refill [facility] [place] [address] Stevie Chairez RN Uncomplicated opioid dependence (CMS/HCC) 10/03/2024 11:30 AM EST Clinical Support [facility] [place] [address] Stevie Chairez RN Uncomplicated opioid dependence (CMS/HCC) (Primary Dx) from Last 3 Months Immunizations Name Administration Dates Next Due [employer] Covid-19 Vaccine 12+ 07/03/2021, Tdap 05/22/2018 Social History Tobacco Use Types Packs/Day Years Used Date Smoking Tobacco: Every Day Cigarettes Tobacco Cessation:Ready to Q uit: Not Asked; Counseling Given: Not Answered Depression Answer Date Recorded Patient Health Questionnaire-9 [...] Orientation Straight 08/29/2022 10 :15 AM EDT Last Filed Vital Signs Vital Sign Reading Time Taken Comments Blood Pressure 120/70 05/16/2024 10:36 AM EDT Pulse 77 05/16/2024 10:36 AM EDT Temperature 36.8 ??C (98.2 ??F) 05/16/2024 10:32 AM E DT Respiratory Rate - - Oxygen Saturation - - Inhaled Oxygen Concentration - - Weight 65.3 kg (144 lb) 05/16/2024 10:32 AM EDT Height - - Body Mass Index - - Plan of Treatment Upcoming Encounters Date Type Department Care Team (Late st Contact Info) Description 02/20/2025 1:00 PM EDT Office Visit [facility] MEDICINE [address] [place] [address] Pamela Baumann MD [address] [place] [address] Health Maintenance Due Date Last Done Comments CT Colonography 1978 Colonoscopy 1978 Colorectal Cancer Screening 1978 FIT DNA/Cologuard 1978 FIT 1978 FOBT 1978 Lipid Panel 1978 Sigmoidoscopy 1978 Alcohol/Substance Use Screening 1990 Family Planning (PISQ) 1993 Hepatitis A Vaccines (1 of 2 - Risk 2-dose series) 1997 Hepatitis B Vaccines (1 of 3 - 19+ 3-dose series) 1997 Pneumococcal Vaccine: Pediatrics (0 to 5 Years) and At-Risk Patients (6 to 49) Years) (1 of 2 - PCV) 1997 Pap Smear 1999 Cervical Cancer Screening 2008 HPV/Cotest 2008 Mammogram 2018 COVID-19 Vaccine (3 - 2023-2 5 season) 2024 07/03/2021, 06/12/2021 Influenza Vaccine (#1) 2024 Depression Monitoring (PHQ-9) 11/16/2024, 03/13/2023 Depression Screening 05/16/2025 05/16/2024, 03/13/2023 SDOH Screening 05/16/2025 05/16/2024 Tobacco Screening 05/16/2025 05/16/2024 Zoster Vaccines (1 of 2) 2028 DTaP/Tdap/Td Vaccines (3 - T d or Tdap) 05/22/2028 05/22/2018, 12/13/2014 RSV Patients and Patients Aged 60 years or older (1 - 1-dose 75+ series) 2053 HIV Screening Completed 11/30/2023, 12/09/2021 Hepatitis C Screening Completed 11/30/2023 , 12/09/2021 HIB Vaccines Aged Out No longer eligi ble based on patient's age to complete this topic HPV Vaccines Aged Out No longer eligi ble based on patient's age to complete this topic IPV Vaccines Aged Out No longer eligi ble based on patient's age to complete this topic Meningococcal Vaccine Aged Out No valentin michael eligible based on patient's age to complete this topic RSV under 20 months Aged Out No longe r eligible based on patient's age to complete this topic Rotavirus Vaccines Aged Out No longer eligible based on patient's age to complete this topic Goals Goal Patient Goal Type Associated Problems Recent Progress Patient-Stated? Author Establish Plan for Regular Lab Work General No Stevie Chairez, REGI Note: Do annual OBAT labs prior to next visit. Procedures Procedure Name Priority Date/Time Associated Diagnosis Comments VITAMIN D,25-OH,TOTAL,IA Routine 12/26/2024 11:51 AM EST HEPATIC FUNCTION PANEL Routine 12/26/2024 11:51 AM EST POCT SANDRA-14 URINE DRUG SCREEN Routine 12/26/2024 11:43 AM EST Uncomplicated opioid dependence (CMS/HCC) POCT SANDRA-14 URINE DRUG SCREEN Routine 10/31/2024 11:27 AM EST Opioid type dependence, continuous (CMS/HCC) POCT SANDRA-14 URINE DRUG SCREEN Routine 10/03/2024 10:56 AM EST Uncomplicated opioid dependence (CMS/HCC) HEPATITIS C AB W/REFL TO HCV RNA, QN, PCR Routine 11/30/2023 1:53 PM EST Opioid type dependence, continuous (CMS/HCC) HIV 1/2 ANTIGEN/ANTIBODY, FOURTH GENERATION W/RFL Routine 11/30/2023 1:53 PM EST Opioid type dependence, continuous (CMS/HCC) from Last 3 Months or Most Recently Relevant to Health Maintenance Results * Vitamin D, 25-Hydroxy, Total, Immunoassay (12/26/2024 11:51 AM EST) Vitamin D 25-OH Total 31.0 >30 ng/mL [facility] Comment:Health Based Referen ce Values*< 20 ng/mL Hfumtnxiz69-86 ng/mL Insufficient> 30 ng/mL Sufficient*Shawn FLORES. N Engl J Med. 2007;357:266-280Care must be taken in interpreting Vitamin D results fromdifferent laboratories and methodologies. Published datademonstrated that results from patients undergoinghemodialysis may show a negative bias when tested withvarious automated 25-OH vitamin D assays when compared toLC-MS/MS.When testing samples from patients whose predominant form ofVitamin D is Vitamin D2, such as patients receiving VitaminD2 supplementation, results that are subtherapeutic shouldbe confirmed with another method such as LC-MS/MS. 12/26/2024 11:5 1 AM EST 12/26/2024 1:06 PM EST Generic External Data Provider LAB BLOOD ORDERAB LES Final Result [facility] [address] [place] [address] [phone] * Hepatic Function Panel (12/26/2024 11:51 AM EST) Bilirubin, Total 0.5 0.0 - 1.0 mg/dL [facility] Bilirubin, Direct 0.2 0.0 - 0.5 mg/dL [facility] Aspartate Amino Transferase 22 5 - 31 U/L [facility] Alanine Aminotransferase 21 0 - 31 U/L [facility] Total Protein 7.4 6.5 - 8.0 g/dL [facility] Albumin Level 4.1 3.5 - 5.0 g/dL [facility] Alkaline Phosphatase 84 39 - 117 U/L [facility] 12/26/2024 11:5 1 AM EST 12/26/2024 1:06 PM EST us Pamela Baumann MD LAB BLOOD ORDERABLES Final R esult [facility] [address] [place] [address] [phone] * POCT SANDRA-14 Urine Drug Screen (12/26/2024 11:43 AM EST) Only the most recent of3 resultswithin the time period is included. Pathologist [facility] THC Negative Cocaine Screen, Urine Negative Opiate Screen, Urine Negative Methamphetamine Screen Urine Negative Amphetamine Screen, Urine Negative Benzodiazepines Screen, Urine Negative Barbiturate Screen, Urine Negative Methadone Screen, Urine Negative Buprenophine Screen, Urine Positive TCA, Urine Negative MDMA Urine Negative ng/mL Oxycodone Screen, Urine Negative Phencyclidine (PCP), Urine Negative Propoxyphene, Urine Negative Fentanyl, Urine Negative Urine Urine specimen obtained by clean catch procedure / Unknown 12/26/2024 11:43 AM EST Pamela Baumann MD POINT OF CARE TEST ENTER/MELVIN T ORDERABLES Final Result * Hepatitis C Antibody with Reflex to HCV, RNA, Quantitative, Real-Time PCR (11/30/2023 1:53 PM EST) [facility] Hepatitis C Antibody Nonreactive Nonreactive [facility] Comment:Antibodies to HCV no t detected; does not exclude early acuteHCV infection. Blood Venous blood specimen / Unknown 11/30/2023 1:53 PM EST 11/30/2023 4:25 PM EST us Pamela Baumann MD LAB BLOOD ORDERABLES Final R esult [facility] [address] [place] [phone] * HIV-1/2 Antigen and Antibodies, Fourth Generation, with Reflexes (11/30/2023 1:53 PM EST) Pathologist [facility] HIV AB/AG Nonreactive Nonreactive [facility] Comment:HIV-1 p24 Ag and/or HIV-1/HIV-2 Ab not detected.A test result that is nonreactive does not exclude thepossibility of exposure to or infection with HIV-1 and/orHIV-2. Nonreactive results in this assay for individualswith prior exposure to HIV-1 and/or HIV-2 may be due toantigen and antibody levels that are below the limit ofdetection of this assay.[facility] HIV Ag/Ab Combo assay result andsupplemental assay results should be interpreted inconjunction with the patient's clinical presentation,history and other laboratory results. If the results areinconsistent with clinical evidence, additional testing issuggested to confirm the result. Blood Venous blood specimen / Unknown 11/30/2023 1:53 PM EST 11/30/2023 4:25 PM EST Pamela Baumann MD LAB BLOOD ORDERABLES Final R esult [facility] [address] [place] [phone] from Last 3 Months or Most Recently Relevant to Health Maintenance Insurance [facility] Member Subscriber Plan / Payer (Ef fective 2020-Present) Name:Floridalma Larry Relation to Subscriber:Self Name:Floridalma Larry Payer ID:Not on file Type:Not on file Address: [address] STANDARD
--- OUTSIDE RECORDS SUMMARY | 2024-12-26 14:24 | XMS_ITS | Encounter Summary ---
Author Organization [employer] Address [address] [facility] [address]t [place] [address] Care Team Providers Care Transport Company Manager Name Role Phone Unavailable Primary Care Provider Unavailabl e Encounter Details Date Type Department Care Team (Late st Contact Info) Description 12/26/2024 Orders Only [facility] [address] [place], [place] [phone] Pamela Baumann MD [address] [place], [place] [phone] Social History Tobacco Use Types Packs/Day Years Used Date Smoking Tobacco: Every Day Cigarettes Depression Answer Date Recorded Patient Health Questionnaire-9 Score 18 03/13/2023 Housing Stability Answer Date Recorded What is your housing situation today? I have faustinoanatoly orozco 05/16/[address] you [...] Description 02/20/2025 1:00 PM EDT Office Visit [facility] [address] [place] [address] Pamela Baumann MD [address] [place], [place] [phone] documented as of this encounter Goals Goal Patient Goal Type Associated Problems Recent Progress Patient-Stated? Author Establish Plan for Regular Lab Work General No Stevie Chairez RN Note: Do annual OBAT labs prior to next visit. documented as of this encounter Procedures Procedure Name Priority Date/Time Associated Diagnosis Comments VITAMIN D,25-OH,TOTAL,IA Routine 12/26/2024 11:51 AM EST HEPATIC FUNCTION PANEL Routine 12/26/2024 11:51 AM EST documented in this encounter Results * Vitamin D, 25-Hydroxy, Total, Immunoassay (12/26/2024 11:51 AM EST) Vitamin D 25-OH Total 31.0 >30 ng/mL [facility] Comment:Health Based Referen ce Values*< 20 ng/mL Orgjqanlm51-29 ng/mL Insufficient> 30 ng/mL Sufficient*Shawn FLORES. N [...] AM EST 12/26/2024 1:06 PM EST us Generic External Data Provider LAB BLOOD ORDERAB LES Final Result Performing Organization Address [facility] Co de Phone Number [facility] [address] [place] [phone] * Hepatic Function Panel (12/26/2024 11:51 AM EST) Bilirubin, Total 0.5 0.0 - 1.0 mg/dL [facility] Bilirubin, Direct 0.2 0.0 - 0.5 mg/dL [facility] Aspartate Amino Transferase 22 5 - 31 U/L [facility] Alanine Aminotransferase 21 0 - 31 U/L [facility] Total Protein 7.4 6.5 - 8.0 g/dL [facility] Albumin Level 4.1 3.5 - 5.0 g/dL [facility] Alkaline Phosphatase 84 39 - 117 U/L [facility] 12/26/2024 11:5 1 AM EST 12/26/2024 1:06 PM EST Pamela Baumann MD LAB BLOOD ORDERABLES Final R esult Performing Organization Address City/[facility] Co de Phone Number [facility] [address] [place] [phone] documented in this encounter Visit Diagnoses Not on filedocumented in this encounter Additional Health Concerns Assessment Noted Time PHQ-9 Depression Total Score: 18 05/2 023 8:25 AM EDT documented as of this encounter
--- OUTSIDE RECORDS SUMMARY | 2024-12-26 14:24 | XMS_ITS | Encounter Summary ---
Author Organization [employer] Address [address] [place] [address] Care Team Providers Care Professor Of Archaeology Name Role Phone Unavailable Primary Care Provider Unavailabl e Reason for Visit * Reason Comments OBAT F/U Encounter Details Date Type Department Care Team (Latest Contact Info) Description 12/26/2024 11:30 AM EST Clinical Support [facility] [address] [place] [address] Stevie Chairez, REGI [address] [place] [address] Uncomplicated opioid dependence (CMS/HCC) (Primary Dx) Social History Tobacco Use Types Packs/Day Years [...] AM EDT documented as of this encounter Progress Notes * Stevie Chairez RN - 12/26/2024 11:30 AM EST Patient here today for Opioid Dependence RV. Patient on current Suboxone dose of 24/6 mg on an 8 week schedule. Patient reports taking medication as prescribed, no cravings or adverse effects. Pt hasbeen in the program for 3 YEARS & 6 MONTHS. Induction date: 07/08/21. LFTs done 11/30/23, wnl, Hep C/HIV neg. Ordered 12/26/24. Patient actively enrolled in behavioral health services, therapist Gudelia psych prescriber Diana at [facility] in [place]. Working with personal development coach. SAL KEN reviewed by provider. PCP at [facility]. LAST VISIT 10/31/24 +bup only Floridalma reports doing well. Experiencing vertigo last couple of days, but otherwise okay. Happy to go to 8 weeks visits. Visited recovery spot today. TODAY 12/26/24 +bup only Floridalma reports doing well. Her grandson is almost 6 months old. She is looking forward to better weather so she can get outside with him more and do more activities. Her mother is coming from [place] for3 months to stay with her soon. Annual screening labs ordered today. She states she will go after appt. Plan: Suboxone dosing schedule of 24/6 mg daily and management of side effects reviewed. Recovery support, harm reduction (including Narcan), and behavioral health attendance reviewed. Appointment for 8 weeks given. Patient expressed understanding and agreement with continuing plan of care. This information has been disclosed to you from records protected by federal confidentiality rules (42 CFR Part 2). The federal rules prohibit you from making any further disclosure of information inthis record that identifies a patient as having or having had a substance use disorder either directly, by reference to publicly available information, or through verification of such identification by another person unless further disclosure is expressly permitted by the written consent of the individual whose information is being disclosed or as otherwise permitted by (see2.3.1). The federal rules restrict any use of the information to investigate or prosecute with regard to a crime any patient with a substance use disorder, except as provided at 2.12??(5) and 2.65. documented in this encounter Plan of Treatment Upcoming Encounters Date Type Department Care Team (Late st Contact Info) Description 02/20/2025 1:00 PM EDT Office Visit [facility] [address] [place] [address] Pamela Baumann MD [address] [place], [place] [phone] Scheduled Orders Name Type Priority Associated Diagnoses Orde r Schedule Hepatic Function Panel Lab Routine Uncomplicated opioid dependence (CMS/HCC) Expected: 12/26/2024 (Approximate), Expires: 12/26/2025 HIV-1/2 Antigen and Antibodies, Fourth Generation, with Reflexes Lab Routine Uncomplicated opioid dependence (CMS/HCC) Expected: 12/26/2024 (Approximate), Expires: 12/26/2025 Hepatitis C Antibody with Reflex to HCV, RNA, Quantitative, Real-Time PCR Lab Routine Uncomplicated opioid dependence (CMS/HCC) Expected: 12/26/2024 (Approximate), Expires: 12/26/2025 documented as of this encounter Goals Goal Patient Goal Type Associated Problems Recent Progress Patient-Stated? Author Establish Plan for Regular Lab Work General Stevie aNtion, REGI Note: Do annual OBAT labs prior to next visit. documented as of this encounter Procedures Procedure Name Priority Date/Time Associated Diagnosis Comments POCT SANDRA-14 URINE DRUG SCREEN Routine 12/26/2024 11:43 AM EST Uncomplicated opioid dependence (CMS/HCC) documented in this encounter Results * POCT SANDRA-14 Urine Drug Screen (12/26/2024 11:43 AM EST) THC Negative Cocaine Screen, Urine Negative Opiate [...] CARE TEST ENTER/MELVIN T ORDERABLES Final Result documented in this encounter Visit Diagnoses Diagnosis Uncomplicated opioid dependence (CMS/HCC)- Primary documented in this encounter Additional Health Concerns Assessment Noted Time PHQ-9 Depression Total Score: 18 05/ 023 8:25 AM EDT documented as of this encounter
--- OUTSIDE RECORDS SUMMARY | 2024-12-26 14:24 | XMS_ITS | Encounter Summary ---
Author Organization [employer] Address [address] [place] [address] Care Team Providers Care Body Wirer Name Role Phone Unavailable Primary Care Provider Unavailabl e Encounter Details Date Type Department Care Team (Latest Contact Info) Description 12/26/2024 Travel Social History Tobacco Use Types Packs/Day Years [...] Description 02/20/2025 1:00 PM EDT Office Visit [facility] [address] [place] [address] Pamela Baumann MD [address] [place], [place] [phone] documented as of this encounter Goals Goal Patient Goal Type Associated Problems Recent Progress Patient-Stated? Author Establish Plan for Regular Lab Work General No Stevie Chairez, RN Note: Do annual OBAT labs prior to next visit. documented as of this encounter Visit Diagnoses Not on filedocumented in this encounter Additional Health Concerns Assessment Noted Time PHQ-9 Depression Total Score: 18 023 8:25 AM EDT documented as of this encounter
[2024-12-27 08:13] LABS: HIV AB/AG Nonreactive (Nonreactive); HIV Num 1 0.06 S/CO (0.00-0.99); ~HepC Num1 0.08 S/CO (0.00-0.79); ~Hepatitis C Antibody Nonreactive (Nonreactive)
== END 2024-12-26 11:49 | disposition home or self-care (01) ==
LOC: HO.HHCL 11:48
PROVIDERS: Nurse Practitioner Family; Visit Provider Family Medicine
DX: F11.20 Opioid dependence, uncomplicated (principal); R79.89 Other specified abnormal findings of blood chemistry
CPT/HCPCS: 36415; 80076; 82306; 86803; 87389

== ENCOUNTER 2025-01-30 16:46 | Outpatient (AMB) | payer OTHER, SELFPAY ==
--- NOTE | 2025-01-30 17:02 | A.OFFPC_ITS ---
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 Accompanied by: Self / Same As Patient Allergies hydrocodone [From Vicodin] Allergy (Unknown, Verified 01/30/25 17:15) Gastrointestinal Upset Medication List - Last Reconciled 01/30/25 by Linh Partida MD adalimumab (Humira(CF) Pen) 40 mg subcut VIEIRA@0900 buprenorphine-naloxone 8-2 mg (Suboxone) 1 film sublingual TID cholecalciferol (vitamin D3) 25 mcg PO DAILY 90 days hydroxyzine HCl 25 mg PO BEDTIME Tobacco use date assessed: 01/30/25 Dental Screening Dental Screen Date: 01/30/25 Did you have a dental visit in the last 12 months?: No Did you have a dental problem in the last 6 months where you did not have access to dental care?: No Was dental information given to patient?: Patient has dentist HPI HPI Comments History of Present Illness Details The patient is a 44-year-old female presenting with bipolar disorder for her annual physical examination. As part of her routine health maintenance, she completed a Pap smear in 2021 and a mammography earlier in 2022, with results pending for the latter. She recognizes the necessity for a colonoscopy for preventive healthcare and has discussed aligning this with her wellness goals. Her medical history includes psoriasis, currently managed with Humira, a known allergy to Vicodin, and a family background of depression via her father and hypertension via her mother. Social determinants impacting her health include smoking four cigarettes daily and alcohol consumption limited to holidays, contributing to considerations for lifestyle interventions. The patient has noted a recent weight increase, gaining 10 pounds over approximately seven months due to insufficient exercise, with intentions to resume physical activity gradually. Despite normal hemoglobin indicating no anemia, she reports episodes of fatigue that may be related to borderline low calcium, though she experiences no serious associated symptoms. - Pap smear performed in 2021 was satisf actory. - Mammography in 2022 and has another ma mmogram today. - Intent for colonoscopy as a preventive measure. - Normal lab results: cholesterol at 189 (excellent), glucose at 69, normal kidney function, and normal liver enzymes. - Vitamin D levels are normal, patient i s compliant with supplementation. - Discussion of possibly repeating calci um levels due to borderline low result and associated fatigue. - Recommendation to add thyroid function tests due to occasional fatigue. [facility] Medical History (Updated 01/30/25 @ 17:30 by Linh Partida MD) Moderate major depression Diarrhea Periorbital cellulitis of left eye Hx of hearing loss Hx of psoriasis Hx of bipolar disorder History of exposure to HIV Hx of anxiety disorder History of depression Surgical History Hx laparoscopic cholecystectomy (03/21/23) History of tubal ligation Family History Father Depression Mother HTN (hypertension) Sister No problems noted. Sister No problems noted. Son No problems noted. Son No problems noted. Daughter No problems noted. 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 1. Little interest or pleasure in doing things: not at all 2. Feeling down, depressed, or hopeless: not at all 3. Trouble falling or staying asleep, or sleeping too much: not at all 4. Feeling tired or having little energy: not at all 5. Poor appetite or overeating: not at all 6. Feeling bad about yourself - or that you are a failure or have let yourself or your family down: not at all 7. Trouble concentrating on things, such as reading the newspaper or watching television: not at all 8. Moving or speaking so slowly that other people could have noticed. Or the opposite - being so fidgety or restless that you have been moving around a lot more than usual: not at all 9. Thoughts that you would be better off or of hurting yourself in some way: not at all Total score: 0 Depression Screening Interpretation: Negative Depression Screening Done: Yes 65946 - PHQ-9 Billing: Yes Source: Developed by Drs. Migel Saldivar, Stefani Larson, Elian Townsend and colleagues, with an educational juan david from [employer]. Thrive Questionnaire Date Thrive assessed: 01/30/25 I am a: Patient What is your living situation today?: I have a steady place to live Within the past 12 months, did the food you bought not last and you didn't have the money to get more?: Never true Within the past 12 months, did you worry whether your food would run out before you got money to buy more?: Never true Do you have trouble paying for medicines?: No Do you have trouble getting transportation to medical appointments?: No Do you have trouble paying your heating and electricity bill?: No Do you have trouble taking care of your child, family member or friend?: No Do you have trouble with day-to-day activities such as bathing, preparing meals, shopping, managing finances, etc.?: No Are you currently unemployed and looking for a job?: No Are you interested in more education?: No Please select the resources that you would like help with: None Currently or been in a relationship where the following occur: No concerns reported THRIVE Score: 0 AUDIT C Alcohol Use Questionnaire (AUDIT-C) 1. How often do you have a drink containing alcohol?: Monthly or less 2. How many drinks containing alcohol do you have on a typical day when you are drinking?: 1 or 2 3. How often do you have six or more drinks on one occasion?: Never Total Score: 1 Score Reviewed/Action Taken: No RANCHO-7 AMB Questionnaire RANCHO-7 Date RANCHO - 7 assessed: 01/30/25 Feeling nervous, anxious, or on edge: 0 = Not at all Not being able to stop or control worryin = Not at all Worrying too much about different things: 0 = Not at all Trouble relaxin = Not at all Being so restless that it is hard to sit still: 0 = Not at all Becoming easily annoyed or irritable: 0 = Not at all Feeling afraid as if something awful might happen: 0 = Not at all Total RANCHO-7 score (0-4 normal; 5-9 mild; 10-14 moderate; 15-21 severe): 0 Source: Developed by Drs. Migel Saldivar, Stefani Larson, Elian Townsend and colleagues, with an educational juan david from [employer]. RANCHO-7 Assessment Billing RANCHO-7 Assessment Tool: RANCHO-7 Assessment 08535 Review of Systems Const All systems reviewed & are unremarkable except as noted in HPI and below Card Denies chest pain at rest, Denies chest pain with activity, Denies edema, Denies irregular heart rhythm, Denies claudication, Denies dyspnea, Denies dyspnea on exertion, Denies orthopnea, Denies paroxysmal nocturnal dyspnea and Denies slow heart rate Resp Denies cough, Denies dyspnea and Denies dyspnea on exertion GI Denies abdominal pain, Denies change in bowel habits, Denies excessive flatus, Denies nausea and Denies vomiting Denies urinary incontinence, Denies urinary hesitancy and Denies urinary urgency Musc Denies abnormal gait, Denies atrophy, Denies deformity and Denies limited range of motion Skin/Breast Denies bleeding lesions, Denies changing lesions and Denies rash Neuro Denies abnormal gait, Denies behavioral changes, Denies confusion and Denies lack of coordination Psych Denies behavioral changes and Denies confusion Physical exam (Primary Care) BMI result Body Mass Index 29.7 Tobacco/Smoking Status: Tobacco use Status Tobacco use date assessed 01/30/25 01/30/25 17:10 Patient Tobacco Use Status Current everyday Tobacco 01/30/25 17:09 Tobacco use type Cigarette 01/30/25 17:09 e-Cigarette/Vaping Use Currently Using 01/30/25 17:09 PHQ-9: PHQ-9 Score PHQ-9: Total score 0 01/30/25 17:09 Depression Screening Interpretation: Negative Thrive Assessment: Date of Thrive Assessment Date Thrive assessed 01/30/25 01/30/25 17:09 Currently or been in a relationship where the following occur: No concerns reported Const General: No confusion Orientation/consciousness: patient oriented x3 and No confusion HENMT Head: Yes normal to inspection, Yes normocephalic and Yes atraumatic Ears: external ears normal Eyes General: appearance normal, both eyes and all related structures Eyelids: Yes eyelids normal Conjunctivae: conjunctivae normal Neck Neck: Yes normal visual inspection and Yes supple Resp Effort & Inspection: normal respiratory effort Auscultation: clear to auscultation bilaterally Cardio Jugular venous distension: no JVD Rate: regular rate Rhythm: regular rhythm Heart sounds: S1 normal heart sound present and S2 normal heart sound present GI Inspection: Yes normal to inspection Palpation (GI): Soft to palpation and nontender Auscultation: normal bowel sounds Skin General skin exam: no rashes or lesions noted Neuro General: patient oriented x3, no focal motor deficits and No confusion Extrem General: Yes full ROM Psych Appearance: grossly normal Coding Level of Care Code Est Pt Level 3 (60593) Est Pt Prev Care 40-64y(82462) Diagnoses Adult general medical exam Z00.00 Bipolar 1 disorder F31.9 Fatigue R53.83 Hypocalcemia E83.51 Additional Codes PHQ-9 - 17653 - PHQ-9 Billing: Yes ([id number]) RANHCO-7 Assessment Billing - RANCHO-7 Assessment Tool: RANCHO-7 Assessment 35703 ([id number]) Time Spent (min) 32 Assessment & Plan Assessment & Plan (1) Adult general medical exam: Code(s): Z00.00 - Encounter for general adult medical examination without abnormal findings Category: Medical (2) Bipolar 1 disorder: Code(s): F31.9 - Bipolar disorder, unspecified Category: Medical (3) Fatigue: Code(s): R53.83 - Other fatigue Category: Medical (4) Hypocalcemia: Code(s): E83.51 - Hypocalcemia Category: Medical Plan We will schedule a colonoscopy as part of her preventive care, given the acknowledged need and patient's agreement. With the patient's cholesterol satisfactorily managed, there are no immediate interventions required in this aspect. We plan to repeat calcium testing due to borderline low levels and consider supplementation if the deficiency is confirmed. Despite consistent normal thyroid function tests, we will repeat them given the fatigue complaints to rule out any underlying thyroid issues. Discussion included lifestyle modifications to reduce smoking and increase physical activity to address recent weight gain and mitigate familial health risks. She will continue her treatment plan with Humira for psoriasis with no alteration, given its current effectiveness in managing her condition. Patient was informed and verbally consented to the use of an ambient scribe for clinic note documentation during this visit. During the visit, we discussed the importance of keeping up with routine screenings, such as the pending colonoscopy, and the favorable cholesterol results motivated her to maintain current dietary and exercise habits. Discussions centered on the importance of reevaluating low calcium levels and exploring thyroid testing due to intermittent fatigue, allowing us to tailor strategies that involve minimal interventions unless necessary. Acknowledged was her intent to curb cigarette intake and increase physical exercise following re cent weight gain, aligning with health maintenance goals of reducing risks related to family history of hypertension and depression. Continued use of Humira for psoriasis remains a central component of managing her chronic condition, with the understanding of the attendant benefits and risks. Consent was verbally obtained for proposed thyroid testing and lifestyle recommendations moving forward. Orders: Orders Thyroid Stimulating Hormone Today R53.83 - Other fatigue Calcium, Ionized Today E83.51 - Hypocalcemia Referrals Open Access Screening Colonoscopy Referral Z12.12 - Encounter for screening for malignant neoplasm of rectum Patient Instructions: - Schedule and undergo a colonoscopy as directed. - Cut down on smoking, aiming towards cessation. - Gradually increase physical activity to address weight gain. - Continue taking vitamin D as prescribed and ensure regular intake due to normal levels. - Monitor calcium and report unusual fatigue or muscle weakness. - Await further instructions after thyroid and repeat calcium lab results.
[2025-01-30 17:03] VITALS: BP 122/76; BMI 29.7
--- OUTSIDE RECORDS SUMMARY | 2025-01-30 17:13 | XMS_ITS | Clinical Summary ---
Author Organization [employer] Address [address] [place] [address] 7[address] [place] [address] Care Team Providers Care Electrical Instrument Technician Name Role Phone Unavailable Primary Care Provider Unavailabl e Allergies No known active allergies Medications * This document contains information received from the source organization and may not represent a complete record from that organization. buPROPion SR (Wellbutrin SR) 100 MG 12 hr tablet Take 100 mg by mouth in the morning. 3 Active Humira Pen 40 MG/0.4ML Pen-injector Kit pen-injector 3 Active adapalene (Differin) 0.3 % gel APPLY TOPICALLY TO THE AFFECTED AREA EVERY NIGHT. START OUT ALTERNATING EVERY OTHER NIGHT WITH TRETINOIN FOR FIRST 2 WEEKS 3 Active betamethasone dipropionate (Diprolene) 0.05 % ointment APPLY TO INFLAMED LESIONS ON THE BUTTOCKS TWICE DAILY FOR 2 WEEKS BREAK FOR 1 WEEK AND REPEAT NEEDED 3 Active Suboxone 8-2 MG SL filmIndications: Uncomplicated opioid dependence (CMS/HCC) Place 3 Film under the tongue Once per day. 84 Film 1 5 02/14/20 25 Active Active Problems Problem Noted Date Diagnosed Date [...] we discussed. She will be refer to [facility] for Ind[facility] Therapy and [facility] Psychopharmacology Clinic for Med. Management. She agreed to meet with me during her OBAT appts for extra support. Encounters Date Type Department Care Team Description 12/26/2024 11:30 AM EST Clinical Support [facility] MEDICINE [address] [place] [id number] Stevie Chairez RN Uncomplicated opioid dependence (CMS/HCC) (Primary Dx) 12/26/2024 Orders Only [address] [address] Pamela Baumann MD 12/26/2024 Travel 12/19/[address] [address] Stevie Chairez RN Uncomplicated opioid dependence (CMS/HCC) from Last 3 Months Immunizations Name Administration Dates Next Due Pfizer Covid-19 Vaccine 12+ 07/03/2021, Tdap 05/22/2018 Social [...] Description 02/20/2025 1:00 PM EDT Office Visit [facility] [address] [place] [address] Pamela Baumann MD [address] [place] [address] Health Maintenance Due Date Last Done Comments CT Colonography 1978 Colonoscopy 1978 Colorectal Cancer Screening 1978 FIT DNA/Cologuard 1978 FIT 1978 FOBT 1978 Lipid Panel 1978 Sigmoidoscopy 1978 Alcohol/Substance Use Screening 1990 Family Planning (PISQ) 1993 Hepatitis B Vaccines (1 of 3 - [...] 1-dose 75+ series) 2053 HIV Screening Completed 12/26/2024, 11/30/2023, 12/09/2021 Hepatitis C Screening Completed 12/26/2024 , 11/30/2023, 12/09/2021 HIB Vaccines Aged Out No longer eligi ble based on patient's age to complete this topic HPV Vaccines Aged Out No longer eligi ble based on patient's age to complete this topic Hepatitis A Vaccines Aged Out No long er eligible based on patient's age to complete [...] Procedure Name Priority Date/Time Associated Diagnosis Comments HIV 1/2 ANTIGEN/ANTIBODY, FOURTH GENERATION W/RFL Routine 12/26/2024 11:51 AM EST HEPATITIS C AB W/REFL TO HCV RNA, QN, PCR Routine 12/26/2024 11:51 AM EST VITAMIN D,25-OH,TOTAL,IA Routine 12/26/2024 11:51 AM EST HEPATIC FUNCTION PANEL Routine 12/26/2024 11:51 AM EST POCT SANDRA-14 URINE DRUG SCREEN Routine 12/26/2024 11:43 AM EST Uncomplicated opioid dependence (CMS/HCC) from Last 3 Months Results * Vitamin D, 25-Hydroxy, Total, Immunoassay (12/26/2024 11:51 AM EST) Vitamin D 25-OH Total 31.0 >30 ng/mL [facility] Comment:Health Based Referen ce Values*< 20 ng/mL Bsxrejaac15-06 ng/mL Insufficient> 30 ng/mL Sufficient*Shawn FLORES. N [...] Provider LAB BLOOD ORDERAB LES Final Result [facility] [address] [place] [phone] * Hepatitis C Antibody with Reflex to HCV, RNA, Quantitative, Real-Time PCR (12/26/2024 11:51 AM EST) Pathologist [facility] Hepatitis C Antibody Nonreactive Nonreactive [facility] Comment:Antibodies to HCV no t detected; does not exclude early acuteHCV infection. 12/26/2024 11:5 1 AM EST 12/26/2024 1:06 PM EST Pamela Baumann MD LAB BLOOD ORDERABLES Final R esult Performing Organization Address City/[facility]/ZIP Co de Phone Number [facility] [address] [place] [phone] * HIV-1/2 Antigen and Antibodies, Fourth Generation, with Reflexes (12/26/2024 11:51 AM EST) [facility] HIV AB/AG Nonreactive Nonreactive [facility] Comment:HIV-1 p24 Ag and/or HIV-1/HIV-2 Ab not detected.A test result that is nonreactive does not exclude thepossibility of exposure to or infection with HIV-1 and/orHIV-2. Nonreactive results in this assay for individualswith prior exposure to HIV-1 and/or HIV-2 may be due toantigen and antibody levels that are below the limit ofdetection of this assay.The [employer] HIV Ag/Ab Combo assay result andsupplemental assay results should be interpreted inconjunction with the patient's clinical presentation,history and other laboratory results. If the results areinconsistent with clinical evidence, additional testing issuggested to confirm the result. 12/26/2024 11:5 1 AM EST 12/26/2024 1:06 PM EST Pamela Baumann MD LAB BLOOD ORDERABLES Final R esult Performing Organization Address City/[facility] Co de Phone Number [facility] [address] [place] [phone] * Hepatic Function Panel (12/26/2024 11:51 AM EST) [facility] Bilirubin, Total 0.5 0.0 - 1.0 mg/dL [facility] Bilirubin, Direct 0.2 0.0 - 0.5 mg/dL [facility] Aspartate Amino Transferase 22 5 - 31 U/L [facility] Alanine Aminotransferase 21 0 - 31 U/L [facility] Total Protein 7.4 6.5 - 8.0 g/dL [facility] Albumin Level 4.1 3.5 - 5.0 g/dL [facility] Alkaline Phosphatase 84 39 - 117 U/L [facility] 12/26/2024 11:5 1 AM EST 12/26/2024 1:06 PM EST Pamela Baumann MD LAB BLOOD ORDERABLES Final R esult [facility] [address] [place] [phone] * POCT SANDRA-14 Urine Drug Screen [...] CARE TEST ENTER/MELVIN T ORDERABLES Final Result from Last 3 Months Insurance [facility] STANDARD
== END 2025-01-30 17:23 | disposition home or self-care (01) ==
LOC: HO.HMCH 16:47
PROVIDERS: PCP Internal Medicine; Visit Provider Internal Medicine
DX: Z00.00 Encounter for general adult medical examination without abnormal findings (principal); F31.9 Bipolar disorder, unspecified; R53.83 Other fatigue; E83.51 Hypocalcemia

== ENCOUNTER → 2025-01-30 16:46 | Outpatient (BNVA) | payer OTHER, SELFPAY | PROVIDERS: PCP Internal Medicine; Visit Provider Internal Medicine | DX: Z00.00 Encounter for general adult medical examination without abnormal findings (principal); F31.9 Bipolar disorder, unspecified; R53.83 Other fatigue; E83.51 Hypocalcemia; F17.210 Nicotine dependence, cigarettes, uncomplicated | CPT/HCPCS: 96127; 99212; 99396 ==

== ENCOUNTER 2025-02-18 10:19 | Outpatient (REF) | payer OTHER, SELFPAY ==
--- OUTSIDE RECORDS SUMMARY | 2025-02-18 11:58 | XMS_ITS | Clinical Summary ---
Author Organization [employer] Address [address] [address] 7 [place] [address] Care Team Providers Care Er Tech Name Role Phone Unavailable Primary Care Provider [...] the tongue Once per day. 84 Film 2 02/11/20 25 2024 Active Suboxone 8-2 MG SL filmIndications :Uncomplicated opioid dependence (CMS/HCC) Place 3 Film under the tongue Once per day. 84 Film 1 12/19/19 25 2024 Discontinued(R eorder (will not trigger notification [...] refer to [facility] for Ind. Therapy and [facility] Psychopharmacology Clinic for Med. Management. She agreed to meet with me during her OBAT appts for extra support. Encounters Date Type Department Care Team Description 02/10/2025 Refill [facility] [place] [address] Pamela Baumann MD Uncomplicated opioid dependence (CMS/HCC) 12/26/2024 11:30 AM EST Clinical Support [facility] [place] [address] Stevie Chairez RN Uncomplicated opioid dependence (CMS/HCC) (Primary Dx) 12/26/2024 Orders Only [facility] [address] Pamela Baumann MD 12/26/2024 Travel 12/19/2024 Refill [facility] [place] [address] Stevie Chairez RN Uncomplicated opioid dependence (CMS/HCC) [...] Description 02/20/2025 1:00 PM EDT Office Visit [facility] MEDICINE [address] [place] [phone] Pamela Baumann MD [address] [place] [address] 05/15/2025 1:00 PM EDT Clinical Support [facility] MEDICINE [address] [place] [address] Stevie Chairez, RN [address] [place] [address] Health Maintenance Due Date Last Done Comments [...] 06/12/2021 Influenza Vaccine (#1) 2024 Depression Monitoring 11/16/2024 05/16/2024 , 03/13/2023 Depression Screening 05/16/2025 05/16/2024, 03/13/2023 SDOH [...] Vitamin D 25-OH Total 31.0 >30 ng/mL [facility] Comment:Health Based Referen ce Values*< 20 ng/mL [id number] ng/mL Insufficient> 30 ng/mL Sufficient*Shawn FLORES. N [...] ORDERAB LES Final Result Performing Organization Address [facility] Co de Phone Number [facility] [address] [place] [phone] * Hepatitis C Antibody with Reflex to HCV, RNA, Quantitative, Real-Time PCR (12/26/2024 11:51 AM EST) Pathologist [facility] Hepatitis C Antibody Nonreactive Nonreactive [facility] Comment:Antibodies to HCV no t detected; does not exclude early acuteHCV infection. 12/26/2024 11:5 1 AM EST 12/26/2024 1:06 PM EST Pamela Baumann MD LAB BLOOD ORDERABLES Final R esult Performing Organization Address [facility] de Phone Number [facility] [address] [place] [phone] * HIV-1/2 Antigen and Antibodies, Fourth Generation, with Reflexes (12/26/2024 11:51 AM EST) Pathologist [facility] HIV AB/AG Nonreactive Nonreactive [facility] Comment:HIV-1 p24 Ag and/or HIV-1/HIV-2 Ab not detected.A test result that is nonreactive does not exclude thepossibility of exposure to or infection with HIV-1 and/orHIV-2. Nonreactive results in this assay for individualswith prior exposure to HIV-1 and/or HIV-2 may be due toantigen and antibody levels that are below the limit ofdetection of this assay.The [employer] HIV Ag/Ab Combo assay result andsupplemental assay results should be interpreted inconjunction with the patient's clinical presentation,history and other laboratory results. If the results areinconsistent with clinical evidence, additional testing issuggested to confirm the result. 12/26/2024 11:5 1 AM EST 12/26/2024 1:06 PM EST Pamela Baumann MD LAB BLOOD ORDERABLES Final R esult Performing Organization Address [facility] de Phone Number [facility] [address] [place] [phone] * Hepatic Function Panel (12/26/2024 11:51 AM EST) Bilirubin, Total 0.5 0.0 - 1.0 mg/dL [facility] Bilirubin, Direct 0.2 0.0 - 0.5 mg/dL [facility] Aspartate Amino Transferase 22 5 - 31 U/L [facility] Alanine Aminotransferase 21 0 - 31 U/L [facility] Total Protein 7.4 6.5 - 8.0 g/dL [facility] Albumin Level 4.1 3.5 - 5.0 g/dL [facility] Alkaline Phosphatase 84 39 - 117 U/L [facility] 12/26/2024 11:5 1 AM EST 12/26/2024 1:06 PM EST Pamela Baumann MD LAB BLOOD ORDERABLES Final R esult Performing Organization Address [facility] Phone Number [facility] [address] [place] [phone] * POCT SANDRA-14 Urine Drug Screen [...] Final Result from Last 3 Months Insurance [facility] Member Subscriber Plan / Payer ( fective 2020-Present) Name:Floridalma Larry Relation to Subscriber:Self Name:Floridalma Larry Payer ID:Not on file Type:Not on file Address: [address] STANDARD
[2025-02-18 14:10] LABS: Thyroid Stimulating Hormone 1.72 uIU/mL (0.32-4.0)
== END 2025-02-18 10:20 | disposition home or self-care (01) ==
LOC: HO.HMGCLDS 10:19
PROVIDERS: PCP Internal Medicine; Visit Provider Internal Medicine
DX: E83.51 Hypocalcemia (principal); R53.83 Other fatigue
CPT/HCPCS: 36415; 82330; 84443

== ENCOUNTER 2025-03-13 10:10 | Outpatient (AMB) | payer OTHER, SELFPAY ==
--- NOTE | 2025-03-13 10:25 | AM.OFFWIN_ITS ---
Intake Vital Signs 3 03/13/25 10:26 Height 5 ft Weight 150 lb 6 oz BMI 29.4 BP 124/80 Blood Pressure Location Rt brachial Position Sitting Pulse 88 Pulse Source Pulse Oximeter Pulse Oximetry (%) 96 Oxygen Delivery Method Room Air Intake Visit Reasons: EP-boil Intake Note: Patient here for boil in vaginal area that has been present for about 2 days. Patient Tobacco Use Status: Current everyday Tobacco user Allergies hydrocodone [From Vicodin] Allergy (Unknown, Verified 03/13/25 10:27) Gastrointestinal Upset HPI HPI Comments 2 History of Present Illness0 Details 45 y/o Female patient who presents to [facility] walk in clinic with c/o Boils on her vagina and right Groin for 2 days now. Pt states that she does get them frequently and has noticed they appear with the onset of her menses and sometimes after each shave. She completed an Abx course of Dicloxacillin 2 months ago for Breast abscess. [facility] Medical History (Updated 03/13/25 @ 10:54 by Treva Ramirez NP) Bacterial folliculitis Moderate major depression Diarrhea Periorbital cellulitis of left eye Hx of hearing loss Hx of psoriasis Hx of bipolar disorder History of exposure to HIV Hx of anxiety disorder History of depression Surgical History Hx laparoscopic cholecystectomy (03/21/23) History of tubal ligation Family History Father Depression Mother HTN (hypertension) Sister No problems noted. Sister No problems noted. Son No problems noted. Son No problems noted. Daughter No problems noted. 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 [employer] Sexual orientation: Straight/Heterosexual Gender identity: Female Cognitive needs: No Hearing needs: Yes (hearing aide) Vision needs: Yes (glasses) Female Reproductive History Menstrual Age of Menarche: 9 Review of Systems Const All systems reviewed & are unremarkable except as noted in HPI and below Physical Exam Vital Signs: Last Vital Signs Pulse 88 03/13/25 10:26 BP 124/80 03/13/25 10:26 Pulse Ox 96 03/13/25 10:26 Oxygen Delivery Method Room Air 03/13/25 10:26 BMI result Body Mass Index 29.4 Const General: no acute distress; No comfortable Nutritional Appearance: overweight Orientation/consciousness: patient oriented x3 General: Yes no CVA tenderness Female genitals images: 2 1. Small very Tender indurated Boils on right labia and right Groin. 2. Small very Tender indurated Boils on right labia and right Groin. Back/Spine/Pelvis Back: no CVA tenderness Skin General skin exam: erythema Neuro General: patient oriented x3 Psych Speech and movement: Normal speech and movement present Assessment & Plan Assessment & Plan (1) Bacterial folliculitis: Code(s): L73.8 - Other specified follicular disorders Plan: Ordered Doxycycline for 14 days. Advised Patient to f/u with [employer] for I&D of the boils. Apply warm compress on/off to promote drainage. Medications: New 2 doxycycline hyclate 100 mg PO BID 28 caps 0RF 14 days L73.8 - Other specified follicular disorders Coding Level of Care Code Est Pt Level 4 (65902) Diagnoses Bacterial folliculitis L73.8 Time Spent (min) 20
[2025-03-13 10:26] VITALS: BP 124/80; PULSE 88; O2SAT 96; BMI 29.4
--- OUTSIDE RECORDS SUMMARY | 2025-03-13 11:08 | XMS_ITS | Clinical Summary ---
Author Organization [employer] Address [address] [place] [address] 7 [place] [address] Care Team Providers Care Combination Saw Operator Name Role Phone Unavailable Primary Care Provider [...] tongue Once per day. 84 Film 2 5 05/05/20 25 Active Active Problems Problem Noted Date [...] refer to [facility] for Ind[facility] Therapy and [facility] Psychopharmacology Clinic for Med. Management. She agreed to meet with me during her OBAT appts for extra support. Encounters Date Type Department Care Team Description 02/20/2025 1:00 PM EDT Office Visit [facility] [place] [address] Pamela Baumann MD Uncomplicated opioid dependence (CMS/HCC) (Primary Dx) 02/20/2025 Travel 02/10/2025 Refill [facility] [place] [address] Pamela Baumann MD Uncomplicated opioid dependence (CMS/HCC) 12/26/2024 11:30 AM EST Clinical Support [facility] [place] [address] Stevie Chairez RN Uncomplicated opioid dependence (CMS/HCC) (Primary Dx) 12/26/2024 Orders Only [facility] [address] Pamela Baumann MD 12/26/2024 Travel 12/19/2024 Refill [facility] [place] [address] Stevie Chairez RN Uncomplicated opioid dependence (CMS/HCC) from Last 3 Months Immunizations Immunization Administration Dates Next Due Pfizer Covid-19 Vaccine [...] Care Team (Late st Contact Info) Description 05/15/2025 1:00 PM EDT Office Visit [facility] MEDICINE [address] [place], [place] [phone] Pamela Baumann MD [address] [place] [address] Health Maintenance Due Date Last Done Comments [...] 07/03/2021, 06/12/2021 Influenza Vaccine (#1) 2024 Depression Screening 05/16/2025 05/16/2024, 03/13/2023 SDOH Screening [...] patient's age to complete this topic Meningococcal B Vaccine Aged Out No l onger eligible based on patient's age to complete [...] Plan for Regular Lab Work General Stevie Nation, RN Note: Do annual OBAT labs prior to next visit. Procedures Procedure Name Priority Date/Time Associated Diagnosis Comments POCT SANDRA-14 URINE DRUG SCREEN Routine 02/20/2025 11:55 AM EDT Uncomplicated opioid dependence (CMS/HCC) HIV 1/2 ANTIGEN/ANTIBODY, FOURTH GENERATION W/RFL Routine 12/26/2024 11:51 AM EST HEPATITIS C AB W/REFL TO HCV RNA, QN, PCR Routine 12/26/2024 11:51 AM EST VITAMIN D,25-OH,TOTAL,IA Routine 12/26/2024 11:51 AM EST HEPATIC FUNCTION PANEL Routine 12/26/2024 11:51 AM EST POCT SANDRA-14 URINE DRUG SCREEN Routine 12/26/2024 11:43 AM EST Uncomplicated opioid dependence (CMS/HCC) from Last 3 Months Results * POCT SANDRA-14 Urine Drug Screen (02/20/2025 11:55 AM EDT) Only the most recent of2 resultswithin the time period is included. THC Negative Cocaine Screen, Urine Negative Opiate Screen, Urine Negative Methamphetamine Screen Urine Negative Amphetamine Screen, Urine Negative Benzodiazepines Screen, Urine Negative Barbiturate Screen, Urine Negative Methadone Screen, Urine Negative Buprenophine Screen, Urine Positive TCA, Urine Negative MDMA Urine Negative ng/mL Oxycodone Screen, Urine Negative Phencyclidine (PCP), Urine Negative Fentanyl, Urine Negative Urine Urine specimen obtained by clean catch procedure / Unknown 02/20/2025 11:55 AM EDT Pamela Baumann MD POINT OF CARE TEST ENTER/MELVIN T ORDERABLES Final Result * Vitamin D, 25-Hydroxy, Total, Immunoassay (12/26/2024 11:51 AM EST) Vitamin D 25-OH Total 31.0 >30 ng/mL [facility] Comment:Health Based Referen ce Values*< 20 ng/mL Aywvqrswe61-48 ng/mL Insufficient> 30 ng/mL Sufficient*Shawn FLORES. N [...] AM EST 12/26/2024 1:06 PM EST us [employer] External Data Provider LAB BLOOD ORDERAB LES Final Result Performing Organization Address [facility]/ZIP Co de Phone Number [facility] [address] [place] [phone] * Hepatitis C Antibody with Reflex to HCV, RNA, Quantitative, Real-Time PCR (12/26/2024 11:51 AM EST) Hepatitis C Antibody Nonreactive Nonreactive [facility] Comment:Antibodies to HCV no t detected; does not exclude early acuteHCV infection. 12/26/2024 11:5 1 AM EST 12/26/2024 1:06 PM EST Pamela Baumann MD LAB BLOOD ORDERABLES Final R esult Performing Organization Address City/[facility]/ZIP Co de Phone Number [facility] [address] [place] [phone] * HIV-1/2 Antigen and Antibodies, Fourth Generation, with Reflexes (12/26/2024 11:51 AM EST) HIV AB/AG Nonreactive Nonreactive [facility] Comment:HIV-1 p24 Ag and/or HIV-1/HIV-2 Ab not detected.A test result that is nonreactive does not exclude thepossibility of exposure to or infection with HIV-1 and/orHIV-2. Nonreactive results in this assay for individualswith prior exposure to HIV-1 and/or HIV-2 may be due toantigen and antibody levels that are below the limit ofdetection of this assay.The [employer] HIV Ag/Ab Combo assay result andsupplemental assay results should be interpreted inconjunction with the patient's clinical presentation,history and other laboratory results. If the results areinconsistent with clinical evidence, additional testing issuggested to confirm the result. 12/26/2024 11:5 1 AM EST 12/26/2024 1:06 PM EST Pamela Baumann MD LAB BLOOD ORDERABLES Final R esult [facility] [address] [place] [phone] * Hepatic Function Panel (12/26/2024 11:51 AM EST) Bilirubin, Total 0.5 0.0 - 1.0 mg/dL [facility] Bilirubin, Direct 0.2 0.0 - 0.5 mg/dL [facility] Aspartate Amino Transferase 22 5 - 31 U/L [facility] Alanine Aminotransferase 21 0 - 31 U/L [facility] Total Protein 7.4 6.5 - 8.0 g/dL [facility] Albumin Level 4.1 3.5 - 5.0 g/dL [facility] Alkaline Phosphatase 84 39 - 117 U/L [facility] 12/26/2024 11:5 1 AM EST 12/26/2024 1:06 PM EST Pamela Baumann MD LAB BLOOD ORDERABLES Final R esult [facility] [address] [place] [phone] from Last 3 Months Insurance [facility] STANDARD [facility] < 65
== END 2025-03-13 10:58 | disposition home or self-care (01) ==
PROVIDERS: PCP Internal Medicine; Visit Provider Nurse Practitioner Family
DX: L73.8 Other specified follicular disorders (principal)

== ENCOUNTER → 2025-03-13 10:10 | Outpatient (BNVA) | payer OTHER, SELFPAY | PROVIDERS: PCP Internal Medicine; Visit Provider Nurse Practitioner Family | DX: L73.8 Other specified follicular disorders (principal) | CPT/HCPCS: 99212 ==

== ENCOUNTER 2025-03-13 14:48 | Outpatient (AMB) | payer OTHER, SELFPAY ==
--- NOTE | 2025-03-13 14:50 | A.OFFVIS_ITS ---
Vital Signs 03/13/25 14:51 Height 5 ft Weight 150 lb BMI 29.3 BP 104/66 Intake Visit Reasons: Boils/per amanda Floodplain Manager: Floodplain Manager Present (Caterina) Allergies hydrocodone [From Vicodin] Allergy (Unknown, Verified 03/13/25 14:51) Gastrointestinal Upset Is last menstrual period known: Yes Last menstrual period: 03/07/25 HPI Comments Details: Follow up urgent care appointment today for leg and right lower labial boil. She reports has occured for years, last treated two months ago. She is wondering if shaving has caused her to have them. She sees Dr. Stratton for her psoriasis treated with Humira, has not discussed her concerns regarding chronic skin boils. She has been warm compresses in the areas, wearing loose clothing due to the discomfort. She is wondering if she needs surgery to have these lumps removed. Many years ago she had 1 on her left breast which was removed. She is not sexually active. The provider at the urgent care setting suggested she is having these occurrences due to her hormones. [facility] Medical History (Updated 03/13/25 @ 15:55 by Amanda Isabel CNM) Bacterial folliculitis Moderate major depression Diarrhea Periorbital cellulitis of left eye Hx of hearing loss Hx of psoriasis Hx of bipolar disorder History of exposure to HIV Hx of anxiety disorder History of depression Surgical History Hx laparoscopic cholecystectomy (03/21/23) History of tubal ligation Family History Father Depression Mother HTN (hypertension) Sister No problems noted. Sister No problems noted. Son No problems noted. Son No problems noted. Daughter No problems noted. 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 Assessment & Plan Assessment & Plan (1) Bacterial folliculitis: Code(s): L73.8 - Other specified follicular disorders Category: Medical Plan Discuss: Various causes and types of skin infections reviewed. Skin care, use of antimicrobial soap, rinsing area well, pat drying, loose cotton clothing. Application of warm compress least 4 times a day. Use of ykyn-vto-[id number] Tylenol as needed for discomfort. Advised to discontinue shaving, risk of microscopic skin abrasions tears and risk of infections. When to seek urgent care for signs of abscess reviewed. Advised to follow up with her software lead and review her concerns. Importance of completing all medications. No indication for surgical intervention at this time. Preventative measures encouraged. The patient expressed understanding and agreement with the plan of care. All of her questions and concerns were addressed to the best of my ability. This note is constructed using voice recognition software. While every effort has been made to ensure accuracy, residential lawn specialist errors may have been included. Coding Level of Care Code Est Pt Level 3 (65402) Diagnoses Bacterial folliculitis L73.8
[2025-03-13 14:51] VITALS: BP 104/66; BMI 29.3
--- OUTSIDE RECORDS SUMMARY | 2025-03-13 15:33 | XMS_ITS | Clinical Summary ---
Author Organization [employer] Address [address] [place] [address] 7 [place] [address] Care Team Providers Care Irrigation System Operator Name Role Phone Unavailable Primary Care [...] refer to [facility] for Ind. Therapy and [facility] for Med. Management. She agreed to meet with me during her OBAT appts for extra support. Encounters Date Type Department Care Team Description 02/20/2025 1:00 PM EDT Office Visit [facility] [place] [place] [address] Pamela Baumann MD Uncomplicated opioid dependence (CMS/HCC) (Primary Dx) 02/20/2025 Travel 02/10/2025 Refill [facility] [place] [address] Pamela Baumann MD Uncomplicated opioid dependence (CMS/HCC) 12/26/2024 11:30 AM EST Clinical Support [facility] [place] [address] Stevie Chairez RN Uncomplicated opioid dependence (CMS/HCC) (Primary Dx) 12/26/2024 Orders Only [facility] [place] [address] Pamela Baumann MD 12/26/2024 Travel 12/19/2024 Refill [facility] [place] [address] Stevie Chairez RN Uncomplicated opioid dependence (CMS/HCC) [...] Description 05/15/2025 1:00 PM EDT Office Visit [facility] [address] [place], [place] [phone] Pamela Baumann MD [address] [place] [address] Health Maintenance Due Date Last Done Comments [...] Vitamin D 25-OH Total 31.0 >30 ng/mL [facility] Comment:Health Based Referen ce Values*< 20 ng/mL Mjashrfzo13-32 ng/mL Insufficient> 30 ng/mL Sufficient*Shawn FLORES. N [...] AM EST 12/26/2024 1:06 PM EST us [employer] External Data Provider LAB BLOOD ORDERAB LES Final Result Performing Organization Address [facility]/ZIP Co de Phone Number [facility] [address] [place] [phone] * Hepatitis C Antibody with Reflex to HCV, RNA, Quantitative, Real-Time PCR (12/26/2024 11:51 AM EST) Hepatitis C Antibody Nonreactive Nonreactive [facility] Comment:Antibodies to HCV no t detected; does not exclude early acuteHCV infection. 12/26/2024 11:5 1 AM EST 12/26/2024 1:06 PM EST Pamela Baumann MD LAB BLOOD ORDERABLES Final R esult Performing Organization Address City/[facility]/ZIP Co de Phone Number [facility] [address] [place] [phone] * HIV-1/2 Antigen and Antibodies, Fourth Generation, with Reflexes (12/26/2024 11:51 AM EST) HIV AB/AG Nonreactive Nonreactive [facility] Comment:HIV-1 p24 Ag and/or HIV-1/HIV-2 Ab not detected.A test result that is nonreactive does not exclude thepossibility of exposure to or infection with HIV-1 and/orHIV-2. Nonreactive results in this assay for individualswith prior exposure to HIV-1 and/or HIV-2 may be due toantigen and antibody levels that are below the limit ofdetection of this assay.The [employer] HIV Ag/Ab Combo assay result andsupplemental assay results should be interpreted inconjunction with the patient's clinical presentation,history and other laboratory results. If the results areinconsistent with clinical evidence, additional testing issuggested to confirm the result. 12/26/2024 11:5 1 AM EST 12/26/2024 1:06 PM EST Pamela Baumann MD LAB BLOOD ORDERABLES Final R esult [facility] [address] [place] [phone] * Hepatic Function Panel (12/26/2024 11:51 AM EST) Bilirubin, Total 0.5 0.0 - 1.0 mg/dL [facility] Bilirubin, Direct 0.2 0.0 - 0.5 mg/dL [facility] Aspartate Amino Transferase 22 5 - 31 U/L [facility] Alanine Aminotransferase 21 0 - 31 U/L [facility] Total Protein 7.4 6.5 - 8.0 g/dL [facility] Albumin Level 4.1 3.5 - 5.0 g/dL [facility] Alkaline Phosphatase 84 39 - 117 U/L [facility] 12/26/2024 11:5 1 AM EST 12/26/2024 1:06 PM EST Pamela Baumann MD LAB BLOOD ORDERABLES Final R esult [facility] [address] [place] [phone] from Last 3 Months Insurance [facility] STANDARD [facility] < 65
== END 2025-03-13 15:40 | disposition home or self-care (01) ==
LOC: HO.HWS 14:48
PROVIDERS: PCP Internal Medicine; Visit Provider Advanced Practice Midwife
DX: L73.8 Other specified follicular disorders (principal)
CPT/HCPCS: 99213

== ENCOUNTER 2025-03-28 10:59 | Outpatient (REF) | payer OTHER, SELFPAY ==
--- OUTSIDE RECORDS SUMMARY | 2025-03-28 11:51 | XMS_ITS | Clinical Summary ---
Author Organization [employer] Address [address] [place] [address] 7 [place] [address] Care Team Providers Care Platinumsmith Name Role Phone Unavailable Primary Care Provider [...] refer to [facility] for Ind. Therapy and [facility] Psychopharmacology Clinic for Med. Management. She agreed to meet with me during her OBAT appts for extra support. Encounters Date Type Department Care Team Description 02/20/2025 1:00 PM EDT Office Visit [facility] [address] [place] [address] Pamela Baumann MD Uncomplicated opioid dependence (CMS/HCC) (Primary Dx) 02/20/2025 Travel 02/10/2025 Refill [facility] [address] [place] [address] Pamela Baumann MD Uncomplicated opioid dependence (CMS/HCC) from Last 3 [...] Description 05/15/2025 1:00 PM EDT Office Visit [facility] [address] [place] [address] Pamela Baumann MD [address] [place] [address] Health Maintenance Due Date Last Done Comments CT Colonography 1978 Colonoscopy 1978 Colorectal Cancer Screening 1978 FIT DNA/Cologuard 1978 FIT 1978 FOBT 1978 Lipid Panel 1978 Sigmoidoscopy 1978 Disability Screening 1978 Alcohol/Substance Use Screening 1990 Family Planning [...] 2024 Depression Monitoring 11/16/2024 05/16/2024 , 03/13/2023 SDOH Screening 05/16/2025 05/16/2024 Tobacco Screening [...] 11:55 AM EDT Uncomplicated opioid dependence (CMS/HCC) HEPATITIS C AB W/REFL TO HCV RNA, QN, PCR Routine 12/26/2024 11:51 AM EST HIV 1/2 ANTIGEN/ANTIBODY, FOURTH GENERATION W/RFL Routine 12/26/2024 11:51 AM EST from Last 3 Months or Most Recently Relevant to Health Maintenance Results * POCT SANDRA-14 Urine Drug Screen (02/20/2025 11:55 AM EDT) Pathologist [facility] THC Negative Cocaine Screen, Urine Negative Opiate [...] Real-Time PCR (12/26/2024 11:51 AM EST) Pathologist [facility] Hepatitis C Antibody Nonreactive Nonreactive [facility] Comment:Antibodies to HCV no t detected; does not exclude early acuteHCV infection. 12/26/2024 11:5 1 AM EST 12/26/2024 1:06 PM EST us Pamela Baumann MD LAB BLOOD ORDERABLES Final R esult [facility] [address] [place] [phone] * HIV-1/2 Antigen and Antibodies, Fourth Generation, with Reflexes (12/26/2024 11:51 AM EST) Pathologist [facility] HIV AB/AG Nonreactive Nonreactive [facility] Comment:HIV-1 p24 Ag and/or HIV-1/HIV-2 Ab not detected.A test result that is nonreactive does not exclude thepossibility of exposure to or infection with HIV-1 and/orHIV-2. Nonreactive results in this assay for individualswith prior exposure to HIV-1 and/or HIV-2 may be due toantigen and antibody levels that are below the limit ofdetection of this assay.The [employer] HIV Ag/Ab Combo assay result andsupplemental assay results should be interpreted inconjunction with the patient's clinical presentation,history and other laboratory results. If the results areinconsistent with clinical evidence, additional testing issuggested to confirm the result. 12/26/2024 11:5 1 AM EST 12/26/2024 1:06 PM EST Pamela Baumann MD LAB BLOOD ORDERABLES Final R esult [facility] [address] [place] [address] [phone] from Last 3 Months or Most Recently Relevant to Health Maintenance Insurance [facility] STANDARD [facility] < 65 [address]RI[address]HER [id number]
== END 2025-03-28 11:00 | disposition home or self-care (01) ==
LOC: HO.MAMMO 10:59
PROVIDERS: PCP Internal Medicine; Visit Provider Internal Medicine
DX: Z12.31 Encounter for screening mammogram for malignant neoplasm of breast (principal)
CPT/HCPCS: 77063; 77067

== ENCOUNTER → 2025-03-28 11:45 | Outpatient (BNV) | payer OTHER, SELFPAY | PROVIDERS: PCP Internal Medicine; Visit Provider Internal Medicine | DX: Z12.31 Encounter for screening mammogram for malignant neoplasm of breast (principal) | CPT/HCPCS: 77063; 77067 ==

== ENCOUNTER 2025-05-19 11:46 | Outpatient (REF) | payer OTHER, SELFPAY ==
--- NOTE | ~2025-05-19 | MM_ITS ---
EXAMINATION: MM DIAGNOSTIC DIGITAL BREAST TOMOSYNTHESIS, LEFT Limited left breast ultrasound. CLINICAL INFORMATION: Call back from screening for asymmetry in the superior left breast with questioned architectural distortion. Patient has a history of a surgical excision near the area O the left breast. COMPARISON: Mammography: Comparison is made with relevant prior imaging on PACS. TECHNIQUE: Digital breast tomosynthesis is performed in both the craniocaudal and mediolateral oblique views along with computer-aided detection (CAD). Synthesized 2D images are generated from the tomosynthesis. FINDINGS: The breasts are heterogeneously dense, which may obscure small masses (ACR BI-RADS breast composition Category c). Asymmetry in the superior left breast on MLO view partially effaces on additional imaging projections. No definite distortion is seen on today's images. No suspicious calcifications or other abnormal findings. Targeted color Doppler ultrasound scanning from 10-3 o'clock demonstrates normal fibronodular breast tissue. There is an incidental hypoechoic oval simple to minimally complicated cyst at 3:00 8 cm from the nipple measuring 6 by a by 3 mm. MM/MM tomosynthesis added views L IMPRESSION: Left: Asymmetry superior left breast MLO view less conspicuous compared with priors and without definite sonographic correlate. Recommend six-month follow-up mammography for further evaluation of stability. Simple to minimally complicated cyst at 3:00 8 cm from the nipple. Benign. ASSESSMENT: BI-RADS BI-RADS 3 - Probably benign finding(s) - 6 month follow-up suggested RECOMMENDATION: 6 Month F/U Results were provided to the patient at time of visit by the technologist. This patient's information was entered into a reminder system with a target due date for their next mammogram. Electronically signed by: Angela Tam DO 05/19/2025 12:48 PM EDT
--- OUTSIDE RECORDS SUMMARY | 2025-05-19 12:49 | XMS_ITS | Clinical Summary ---
Author Organization [employer] Address [address] [place] [address] [address] [place] [address] Care Team Providers Care Managed Care Director Name Role Phone Unavailable Primary Care Provider [...] tongue Once per day. 84 Film 1 05/08/20 25 2024 Active Suboxone 8-2 MG SL filmIndications :Uncomplicated opioid dependence (CMS/HCC) Place 3 Film under the tongue Once per day. 84 Film 2 02/11/20 25 2024 Discontinued(R eorder (will not trigger [...] refer to [facility] for Ind. Therapy and [facility] Psych[facility]armacology [facility] for Med. Management. She agreed to meet with me during her OBAT appts for extra support. Encounters * This document contains information received from the source organization and may not represent a complete record from that organization. Date Type Department Care Team Description 05/15/2025 1:00 PM EDT Office Visit [facility] [address] [place] [phone] Pamela Baumann MD Opioid type dependence, continuous (CMS/HCC) (Primary Dx); Mixed anxiety and depressive disorder 05/15/2025 Patient Outreach [facility] [address] [place] [phone] Sabas Silva Recovery Supports 05/15/2025 Travel 05/08/2025 Refill [facility] [address] [place] [phone] Pamela Baumann MD Uncomplicated opioid dependence ([facility]/HCC) 05/07/2025 Refill [facility] [address] [place] [phone] Pamela Baumann MD Uncomplicated opioid dependence (CMS/HCC) 04/24/2025 Telephone [facility] [address] [place] [phone] Ilda Ballesteros RN 02/20/2025 1:00 PM EDT Office Visit [facility] [address] [place] [address] Pamela Baumann MD Uncomplicated opioid dependence (CMS/HCC) (Primary Dx) 02/20/2025 Travel from Last 3 Months Immunizations Immunization Administration Dates Next Due [employer]19 Vaccine 12+ 07/03/2021, Tdap 05/22/2018 Social History Tobacco Use Types Packs/Day Years Used Date Smoking Tobacco: Every Day Cigarettes Passive Smoke Exposure: Current Tobacco Cessation:Ready to Q uit: Not Asked; [...] 77 05/16/2024 10:36 AM EDT Temperature 36.8 C (98.2 F) 05/16/2024 10:32 AM EDT Respiratory Rate - - Oxygen Saturation - - Inhaled Oxygen Concentration - - Weight 65.3 kg (144 lb) 05/16/2024 10:32 AM EDT Height - - Body Mass Index - - Plan of Treatment Upcoming Encounters Date Type Department Care Team (Late st Contact Info) Description 07/10/2025 1:15 PM EDT Office Visit [facility] [address] [place] [address] Pamela Baumann MD [address] [place] [address] Health Maintenance Due Date Last Done Comments CT Colonography 1978 Colonoscopy 1978 Colorectal Cancer Screening 1978 FIT DNA/Cologuard 1978 FIT 1978 FOBT 1978 Lipid Panel 1978 Sigmoidoscopy 1978 Disability Screening 1978 Alcohol/Substance Use Screening 1990 Family Planning (PISQ) 1993 Hepatitis B Vaccines (1 of 3 - 19+ 3-dose series) 1997 Pneumococcal Vaccine: Pediatrics (0 to 5 Years) and At-Risk Patients (6 to 49) Years (1 of 2 - PCV) 1997 Pap Smear 1999 Cervical Cancer Screening 2008 HPV/Cotest 2008 Mammogram 2018 COVID-19 Vaccine ( - 2023-2 5 season) 2024 07/03/2021, 06/12/2021 Depression Monitoring 11/16/2024 05/16/2024 , 03/13/2023 SDOH Screening 05/16/2025 05/16/2024 Influenza Vaccine (#1) 2025 Tobacco Screening 05/15/2026 05/15/2025 Zoster Vaccines (1 of 2) 2028 DTaP/Tdap/Td [...] Comments POCT SANDRA-14 URINE DRUG SCREEN Routine 05/15/2025 1:33 PM EDT Opioid type dependence, continuous (CMS/HCC) POCT SANDRA-14 URINE DRUG SCREEN Routine 02/20/2025 11:55 AM EDT Uncomplicated opioid dependence (CMS/HCC) HEPATITIS C AB W/REFL TO HCV RNA, QN, PCR Routine 12/26/2024 11:51 AM EST HIV 1/2 ANTIGEN/ANTIBODY, FOURTH GENERATION W/RFL Routine 12/26/2024 11:51 AM EST from Last 3 Months or Most Recently Relevant to Health Maintenance Results * (ABNORMAL) POCT SANDRA-14 Urine Drug Screen (05/15/2025 1:33 PM EDT) Only the most recent of2 resultswithin the time period is included. THC Negative Negative Cocaine Screen, Urine Negative Negative Opiate Screen, Urine Negative Negative Methamphetamine Screen Urine Negative Negative Amphetamine Screen, Urine Negative Negative Benzodiazepines Screen, Urine Negative Negative Barbiturate Screen, Urine Negative Negative Methadone Screen, Urine Negative Negative Buprenophine Screen, Urine Positive(A) Negative TCA, Urine Negative Negative MDMA Urine Negative Negative ng/mL Oxycodone Screen, Urine Negative Negative Phencyclidine (PCP), Urine Negative Negative Fentanyl, Urine Negative Negative Urine Urine specimen obtained by clean catch procedure / Unknown 05/15/2025 1:33 PM EDT us Pamela Baumann MD POINT OF CARE TEST ENTER/MELVIN T ORDERABLES Final Result * Hepatitis C Antibody with Reflex to HCV, RNA, Quantitative, Real-Time PCR (12/26/2024 11:51 AM EST) Hepatitis C Antibody Nonreactive Nonreactive [facility] Comment:Antibodies to HCV no t detected; does not exclude early acuteHCV infection. 12/26/2024 11:5 1 AM EST 12/26/2024 1:06 PM EST us Pamela Baumann MD LAB BLOOD ORDERABLES Final R esult [facility] [address] [place] [address] [phone] * HIV-1/2 Antigen and Antibodies, Fourth Generation, with Reflexes (12/26/2024 11:51 AM EST) HIV AB/AG Nonreactive Nonreactive [facility] Comment:HIV-1 p24 Ag and/or HIV-1/HIV-2 Ab not detected.A test result that is nonreactive does not exclude thepossibility of exposure to or infection with HIV-1 and/orHIV-2. Nonreactive results in this assay for individualswith prior exposure to HIV-1 and/or HIV-2 may be due toantigen and antibody levels that are below the limit ofdetection of this assay.The [email or web address] HIV Ag/Ab Combo assay result andsupplemental assay results should be interpreted inconjunction with the patient's clinical presentation,history and other laboratory results. If the results areinconsistent with clinical evidence, additional testing issuggested to confirm the result. 12/26/2024 11:5 1 AM EST 12/26/2024 1:06 PM EST Pamela Baumann MD LAB BLOOD ORDERABLES Final R esult [facility] [address] [place] [phone] [phone] from Last 3 Months or Most Recently Relevant to Health Maintenance Insurance [facility] < 65 [address] [id number]
== END 2025-05-19 11:47 | disposition home or self-care (01) ==
LOC: HO.MAMMO 11:46
PROVIDERS: PCP Internal Medicine; Visit Provider Internal Medicine
DX: N64.89 Other specified disorders of breast (principal)
CPT/HCPCS: 76642; 77061; 77065

== ENCOUNTER → 2025-05-19 12:00 | Outpatient (BNV) | payer OTHER, SELFPAY | PROVIDERS: PCP Internal Medicine; Visit Provider Internal Medicine | DX: N60.02 Solitary cyst of left breast (principal); R92.8 Other abnormal and inconclusive findings on diagnostic imaging of breast | CPT/HCPCS: 76642; 77065; G0279 ==

== ENCOUNTER 2025-06-06 10:42 | Outpatient (REF) | payer OTHER, SELFPAY ==
--- OUTSIDE RECORDS SUMMARY | 2025-06-06 10:45 | XMS_ITS | Clinical Summary ---
Author Organization [email or web address] Address [address] [place] [address] 7 [place] [address] Care Team Providers Care Outside Machinist Helper Name Role Phone Unavailable Primary Care Provider [...] Once per day. 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 Therapy and [facility] for Med. Management. She agreed to meet with me during her OBAT appts for extra support. Encounters * This document contains information received from the source organization and may not represent a complete record from that organization. Date Type Department Care Team Description 05/15/2025 1:00 PM EDT Office Visit [facility] [address] [place] [phone] Pamela Baumann MD Opioid type dependence, continuous (CMS/HCC) (Primary Dx); Mixed anxiety and depressive disorder 05/15/2025 Patient Outreach [facility] [address] [place] [phone] Sabas Silva Recovery Supports 05/15/2025 Travel 05/08/2025 Refill [facility] [address] [place] [address] [phone] Pamela Baumann MD Uncomplicated opioid dependence ([facility]/HCC) 05/07/2025 Refill [facility] [address] [place] [address] [phone] Pamela Baumann MD Uncomplicated opioid dependence ([facility]/HCC) 04/24/2025 Telephone [facility] [address] [place] [address] [phone] Ilda Ballesteros RN from Last 3 Months Immunizations Immunization Administration Dates Next Due Pfizer Covid-19 Vaccine 12+ 07/03/2021, Tdap 05/22/2018 Social History Tobacco Use Types Packs/Day Years Used Date Smoking Tobacco: Every Day Cigarettes Passive Smoke Exposure: Current Tobacco Cessation:Ready to Q uit: Not Asked; Counseling Given: Not Answered Depression Answer Date Recorded Patient Health Questionnaire-9 Score 7 05/22/2025 Patient Health Questionnaire-9 Score 7 05/22/2025 Last PHQ-9: Questionnaire Data Not on file 0 05/22/2025 Housing Stability Answer Date Recorded What is [...] Date Recorded Patient Health Questionnaire-2 Score 0 05/22/2025 Internet Access Answer Date Recorded Internet Access [...] Description 07/10/2025 1:15 PM EDT Office Visit [facility] [address] [place] [address] [phone] Pamela Baumann MD [address] [place] [phone] Health Maintenance Due Date Last Done Comments [...] - 2023-2 5 season) 2024 07/03/2021, 06/12/2021 SDOH Screening 05/16/2025 05/16/2024 Influenza Vaccine (#1) 2025 Tobacco Screening 05/15/2026 05/15/2025 Depression Screening 05/22/2026 05/22/2025, 05/22/2025 Zoster Vaccines (1 of 2) 2028 DTaP/Tdap/Td [...] PM EDT Opioid type dependence, continuous (CMS/HCC) HEPATITIS C AB W/REFL TO HCV RNA, QN, PCR Routine 12/26/2024 11:51 AM EST HIV 1/2 ANTIGEN/ANTIBODY, FOURTH GENERATION W/RFL Routine 12/26/2024 11:51 AM EST from Last 3 Months or Most Recently Relevant to Health Maintenance Results * (ABNORMAL) POCT SANDRA-14 Urine Drug Screen (05/15/2025 1:33 PM EDT) THC Negative Negative Cocaine Screen, Urine Negative [...] procedure / Unknown 05/15/2025 1:33 PM EDT Pamela Baumann MD POINT OF CARE TEST ENTER/MELVIN T ORDERABLES Final Result * Hepatitis C Antibody with Reflex to HCV, RNA, Quantitative, Real-Time PCR (12/26/2024 11:51 AM EST) Hepatitis C Antibody Nonreactive Nonreactive [facility] Comment:Antibodies to HCV no t detected; does not exclude early acuteHCV infection. 12/26/2024 11:5 1 AM EST 12/26/2024 1:06 PM EST Pamela aBumann MD LAB BLOOD ORDERABLES Final R esult Performing Organization Address City/[facility] Co de Phone Number [facility] [address] [place] [phone] * HIV-1/2 Antigen and Antibodies, Fourth Generation, with Reflexes (12/26/2024 11:51 AM EST) HIV AB/AG Nonreactive Nonreactive [facility] Comment:HIV-1 p24 Ag and/or HIV-1/HIV-2 Ab not detected.A test result that is nonreactive does not exclude thepossibility of exposure to or infection with HIV-1 and/orHIV-2. Nonreactive results in this assay for individualswith prior exposure to HIV-1 and/or HIV-2 may be due toantigen and antibody levels that are below the limit ofdetection of this assay.The [employer] HIV Ag/Ab Combo assay result andsupplemental assay results should be interpreted inconjunction with the patient's clinical presentation,history and other laboratory results. If the results areinconsistent with clinical evidence, additional testing issuggested to confirm the result. 12/26/2024 11:5 1 AM EST 12/26/2024 1:06 PM EST Pamela Baumann MD LAB BLOOD ORDERABLES Final R esult Performing Organization Address [facility] Co de Phone Number [facility] [address] [place] [phone] from Last 3 Months or Most Recently Relevant to Health Maintenance Insurance [facility] < 63 [address] [place] [id number]
[2025-06-06 12:49] LABS: HBS Num1 0.34 mIU/mL (0-7.99); HBc Num1 0.07 S/CO (0.00-0.79); HBsAGNum1 0.44 S/CO (0.00-0.99); Hepatitis B Surface Antigen Negative (Negative); ~HepC Num1 0.07 S/CO (0.00-0.79); ~Hepatitis A Antibody IgG 0.46 S/CO (0.00-0.99); ~Hepatitis B Surface Antibody NONREACTIVE (Nonreactive); ~Hepatitis C Antibody Nonreactive (Nonreactive)
== END 2025-06-06 10:43 | disposition home or self-care (01) ==
LOC: HO.HHCL 10:42
PROVIDERS: PCP Internal Medicine; Visit Provider Family Medicine
DX: Z11.59 Encounter for screening for other viral diseases (principal); F11.20 Opioid dependence, uncomplicated
CPT/HCPCS: 36415; 86704; 86706; 86708; 86803; 87340